=== PATIENT | female | born 1950 | race Caucasian/White ===

== ENCOUNTER 2018-06-16 15:59 | Emergency (ER) | payer MEDICARE, OTHER, SELFPAY ==
[2018-06-16 16:02] VITALS: BP 142/62; PULSE 81; RESP 20; TEMP 37.4; O2SAT 99
--- NOTE | 2018-06-16 16:06 | DI.RAD.S_ITS ---
PROCEDURE: XR HAND LT MIN 3V INDICATIONS: cellulitis TECHNIQUE: 3 views of the hand(s) acquired. COMPARISON: None. FINDINGS: Bones: No fractures or dislocations. Carpal bones are normally aligned. No suspicious bony lesions. No roger bony destruction or periosteal reaction. Soft tissues: No suspicious soft tissue calcifications. No soft tissue gas. IMPRESSION: No roger evidence of osteomyelitis. Plain film radiographs can be insensitive to osteomyelitis during the initial 15 days of the disease process. If there is clinical concern for osteomyelitis, then three-phase nuclear medicine bone scan is warranted. Dictated by: Michelle Bunch MD, PhD on 06/16/2018 at 15:23 Approved by: Michelle Bunch MD, PhD on 06/16/2018 at 15:24
--- NOTE | 2018-06-16 17:07 | ED.EXTPRO ---
HPI - Extremity Problem <Airam Mckeon PA-C - Last Filed: 06/16/18 22:02> General Chief complaint: Extremity Problem,Nontraumatic Stated complaint: LEFT HAND SWELLING Time Seen by Provider: 06/16/18 17:07 Source: patient Mode of arrival: ambulatory Limitations: no limitations History of Present Illness HPI Narrative: This 68-year-old female comes in today due to left hand pain, redness and swelling for the last 4 days. She states this is not worse today and has been about the same since 1st noted on Saturday, however she went to see her psychiatric provider who was concerned and sent her here. She states the hand and wrist are painful to touch and with movement. She states that she has not had fever at home. She does not know of any injury or insect bites. She has been going about her normal activities aside from trying to avoid using the hand. She denies any chest pain, dyspnea, or abdominal complaints. She denies any pain or swelling in other extremities. She denies any history of blood clots. Related Data Home Medications Medication Instructions Recorded Confirmed ascorbic acid (vitamin C) 1,000 mg PO QDAY #0 02/17/18 06/16/18 calcium carbonate 1,000 mg PO QDAY #0 02/17/18 06/16/18 cholecalciferol (vitamin D3) 1,000 iu PO QDAY #0 02/17/18 06/16/18 [Vitamin D3] ferrous sulfate [Iron (ferrous 325 mg PO QDAY #0 02/17/18 06/16/18 sulfate)] lisinopril 20 mg PO QDAY #0 02/17/18 06/16/18 sertraline 300 mg PO QDAY #0 02/17/18 06/16/18 vitamin E 1,000 iu PO QDAY #0 02/17/18 06/16/18 lamotrigine 25 mg PO QID 06/16/18 06/16/18 metoprolol succinate 50 mg PO QPM 06/16/18 06/16/18 Previous Rx's Medication Instructions Recorded gabapentin 300 mg capsule 900 mg PO SEE INSTRUCTIONS #90 cap 04/21/18 clindamycin HCl 300 mg PO Q6H 10 Days #40 cap 06/16/18 topiramate 25 mg tablet 50 mg PO BID #360 tab 06/16/18 Allergies Allergy/AdvReac Type Severity Reaction Status Date / Time No Known Allergies Allergy Uncoded 06/16/18 15:01 Review of Systems <Airam Mckeon PA-C - Last Filed: 06/16/18 22:02> Review of Systems All systems reviewed & are unremarkable except as noted in HPI and below Exam <Airam Mckeon PA-C - Last Filed: 06/16/18 22:02> Narrative Exam Narrative: GENERAL APPEARANCE: Patient sitting comfortably, in no distress. NECK/THYROID: Neck supple LUNGS: Clear to auscultation bilaterally. HEART: Regular rate and rhythm without murmur, normal S1, S2, no S3 or S4. ABDOMEN: Soft, NT, ND, + BS x 4 quadrants EXTREMITIES: No LE edema. No calf tenderness NEUROLOGIC: Alert and oriented, normal speech, and coordination. DERMATOLOGIC: Left hand and wrist as well as distal forearm moderately erythematous, warm to touch. No visible wound or puncture. MUSCULOSKELETAL: Left hand and wrist are tender throughout and edematous. No localized joint effusion or point tenderness. She has reduced ROM secondary to tenderness NEUROVASCULAR: Left hand fingers are warm and pink, radial and ulnar pulses intact, sensation grossly intact Initial Vital Signs Initial Vital Signs: Vital Signs Temperature 99.3 F 06/16/18 16:02 Pulse Rate 81 06/16/18 16:02 Respiratory Rate 20 06/16/18 16:02 Blood Pressure 142/62 H 06/16/18 16:02 Pulse Oximetry 99 06/16/18 16:02 <Pan Sharma MD - Last Filed: 06/17/18 02:04> Initial Vital Signs Initial Vital Signs: Vital Signs Temperature 99.3 F 06/16/18 16:02 Pulse Rate 81 06/16/18 16:02 Respiratory Rate 20 06/16/18 16:02 Blood Pressure 142/62 H 06/16/18 16:02 Pulse Oximetry 99 06/16/18 16:02 Course <Airam Mckeon PA-C - Last Filed: 06/16/18 22:02> Additional Information: Reviewed findings with Dr. Sharma including lack of WBC count, nl lactate, procal etc and lack of progression of symptoms in 4 days. He saw patient as well and agrees with plan for outpatient treatment. Patient is agreeable with plan as well as to return if any acutely worsening symptoms, and to follow up with her PCP in 48-72 hours Orders Ordered: ED Orders 06/16/18 18:00 Blood Culture Stat Discontinued Medications Sodium Chloride (Normal Saline 0.9%) 1,000 mls @ 1,000 mls/hr IV BOLUS ONE Stop: 06/16/18 18:18 Last Infusion: 06/16/18 18:49 Dose: 0 mls/hr Admin: 06/16/18 17:41 Dose: 1,000 mls/hr Clindamycin Phosphate (Cleocin) 600 mg in 50 mls @ 50 mls/hr IV NOW ONE Stop: 06/16/18 18:18 Last Infusion: 06/16/18 18:36 Dose: 0 mls/hr Admin: 06/16/18 17:41 Dose: 50 mls/hr Vital Signs - 8 hr 06/16/18 18:13 06/16/18 18:49 Temperature 98.6 F 98.6 F Pulse Rate 79 Respiratory Rate 16 Blood Pressure 141/70 H Pulse Oximetry 100 <Pan Sharma MD - Last Filed: 06/17/18 02:04> Orders Ordered: ED Orders 06/16/18 18:00 Blood Culture Stat Discontinued Medications Sodium Chloride (Normal Saline 0.9%) 1,000 mls @ 1,000 mls/hr IV BOLUS ONE Stop: 06/16/18 18:18 Last Infusion: 06/16/18 18:49 Dose: 0 mls/hr Admin: 06/16/18 17:41 Dose: 1,000 mls/hr Clindamycin Phosphate (Cleocin) 600 mg in 50 mls @ 50 mls/hr IV NOW ONE Stop: 06/16/18 18:18 Last Infusion: 06/16/18 18:36 Dose: 0 mls/hr Admin: 06/16/18 17:41 Dose: 50 mls/hr Vital Signs - 8 hr 06/16/18 18:13 06/16/18 18:49 Temperature 98.6 F 98.6 F Pulse Rate 79 Respiratory Rate 16 Blood Pressure 141/70 H Pulse Oximetry 100 MDM - Extremity (Nontraumatic) <Airam Mckeon PA-C - Last Filed: 06/16/18 22:02> Lab Data Result diagrams: 06/16/18 16:39 08/06/18 16:40 Lab Results 06/16/18 06/16/18 06/16/18 Range/Units 16:39 16:39 16:40 WBC 10.2 (4.5-11.0) X10^3/uL RBC 3.95 L (4.0-5.2) X10^6/uL Hgb 9.0 L (12.0-16.0) g/dL Hct 28.4 L (36-46) % MCV 71.9 L (80-100) fL MCH 22.7 L (26-34) PG MCHC 31.5 (30-36) % RDW 19.7 H (11.6-14.8) % Plt Count 241 (150-400) X10^3/uL Neut % (Auto) 72.5 (50-75) % Lymph % (Auto) 17.1 L (25-40) % [place] % (Auto) 8.7 (3-14) % Eos % (Auto) 1.0 L (2-4) % Baso % (Auto) 0.7 (0-2) % Neut # (Auto) 7400 H (3176-0476) /uL PT 12.8 H (10.1-12.7) SECONDS INR 1.2 (0.9-1.3) APTT 27 (26.4-36.2) SECONDS Sodium (137-145) mmol/L Potassium (3.4-5.1) mmol/L Chloride (98-107) mmol/L Carbon Dioxide (22-32) mmol/L BUN (7-17) mg/dL Creatinine (0.52-1.04) mg/dL Estimated GFR (>60) mL/min BUN/Creatinine Ratio (6-22) Glucose (80-110) mg/dL Lactate (0.7-2.1) mmol/L Uric Acid 5.1 (2.5-6.2) mg/dL Calcium (8.4-10.2) mg/dL Total Bilirubin (0.2-1.3) mg/dL AST (14-36) IU/L ALT (9-52) IU/L Alkaline Phosphatase (38-126) U/L Total Protein (6.3-8.2) g/dL Albumin (3.5-5.0) g/dL Globulin (1.7-4.1) g/dL Albumin/Globulin Ratio (1.0-2.8) Lipase (23-300) U/L Procalcitonin (<0.5) ng/mL 06/16/18 06/16/18 06/16/18 Range/Units 16:40 16:40 16:40 WBC (4.5-11.0) X10^3/uL RBC (4.0-5.2) X10^6/uL Hgb (12.0-16.0) g/dL Hct (36-46) % MCV (80-100) fL MCH (26-34) PG MCHC (30-36) % RDW (11.6-14.8) % Plt Count (150-400) X10^3/uL Neut % (Auto) (50-75) % Lymph % (Auto) (25-40) % [place] % (Auto) (3-14) % Eos % (Auto) (2-4) % Baso % (Auto) (0-2) % Neut # (Auto) (9886-6147) /uL PT (10.1-12.7) SECONDS INR (0.9-1.3) APTT (26.4-36.2) SECONDS Sodium 142 (137-145) mmol/L Potassium 3.4 (3.4-5.1) mmol/L Chloride 111 H (98-107) mmol/L Carbon Dioxide 19 L (22-32) mmol/L BUN 20 H (7-17) mg/dL Creatinine 1.20 H (0.52-1.04) mg/dL Estimated GFR 44.8 L (>60) mL/min BUN/Creatinine Ratio 16.7 (6-22) Glucose 98 (80-110) mg/dL Lactate 0.9 (0.7-2.1) mmol/L Uric Acid (2.5-6.2) mg/dL Calcium 9.2 (8.4-10.2) mg/dL Total Bilirubin 0.3 (0.2-1.3) mg/dL AST 18 (14-36) IU/L ALT 14 (9-52) IU/L Alkaline Phosphatase 92 (38-126) U/L Total Protein 7.5 (6.3-8.2) g/dL Albumin 4.1 (3.5-5.0) g/dL Globulin 3.4 (1.7-4.1) g/dL Albumin/Globulin Ratio 1.2 (1.0-2.8) Lipase 35 (23-300) U/L Procalcitonin < 0.05 (<0.5) ng/mL Imaging Data extremity: Radiologist's impression: [address] [address] XRay Report Signed Patient: Darline Bray MR#: [id number] : 1950 Acct:[id number] Age/Sex: 68 / F Date of Service: 06/16/18 Loc: ED Accession Number: [id number] Procedure: XR hand LT min 3V Ordering Provider: Airam Mckeon P.A-C PROCEDURE: XR HAND LT MIN 3V INDICATIONS: cellulitis TECHNIQUE: 3 views of the hand(s) acquired. COMPARISON: None. FINDINGS: Bones: No fractures or dislocations. Carpal bones are normally aligned. No suspicious bony lesions. No roger bony destruction or periosteal reaction. Soft tissues: No suspicious soft tissue calcifications. No soft tissue gas. IMPRESSION: No roger evidence of osteomyelitis. Plain film radiographs can be insensitive to osteomyelitis during the initial 15 days of the disease process. If there is clinical concern for osteomyelitis, then three-phase nuclear medicine bone scan is warranted. Dictated by: Michelle Bunch MD, PhD on 06/16/2018 at 15:23 Approved by: Michelle Bunch MD, PhD on 06/16/2018 at 15:24 <Pan Sharma MD - Last Filed: 06/17/18 02:04> Lab Data Lab Results 06/16/18 06/16/18 06/16/18 Range/Units 16:39 16:39 16:40 WBC 10.2 (4.5-11.0) X10^3/uL RBC 3.95 L (4.0-5.2) X10^6/uL Hgb 9.0 L (12.0-16.0) g/dL Hct 28.4 L (36-46) % MCV 71.9 L (80-100) fL MCH 22.7 L (26-34) PG MCHC 31.5 (30-36) % RDW 19.7 H (11.6-14.8) % Plt Count 241 (150-400) X10^3/uL Neut % (Auto) 72.5 (50-75) % Lymph % (Auto) 17.1 L (25-40) % [place] % (Auto) 8.7 (3-14) % Eos % (Auto) 1.0 L (2-4) % Baso % (Auto) 0.7 (0-2) % Neut # (Auto) 7400 H (8634-2265) /uL PT 12.8 H (10.1-12.7) SECONDS INR 1.2 (0.9-1.3) APTT 27 (26.4-36.2) SECONDS Sodium (137-145) mmol/L Potassium (3.4-5.1) mmol/L Chloride (98-107) mmol/L Carbon Dioxide (22-32) mmol/L BUN (7-17) mg/dL Creatinine (0.52-1.04) mg/dL Estimated GFR (>60) mL/min BUN/Creatinine Ratio (6-22) Glucose (80-110) mg/dL Lactate (0.7-2.1) mmol/L Uric Acid 5.1 (2.5-6.2) mg/dL Calcium (8.4-10.2) mg/dL Total Bilirubin (0.2-1.3) mg/dL AST (14-36) IU/L ALT (9-52) IU/L Alkaline Phosphatase (38-126) U/L Total Protein (6.3-8.2) g/dL Albumin (3.5-5.0) g/dL Globulin (1.7-4.1) g/dL Albumin/Globulin Ratio (1.0-2.8) Lipase (23-300) U/L Procalcitonin (<0.5) ng/mL 06/16/18 06/16/18 06/16/18 Range/Units 16:40 16:40 16:40 WBC (4.5-11.0) X10^3/uL RBC (4.0-5.2) X10^6/uL Hgb (12.0-16.0) g/dL Hct (36-46) % MCV (80-100) fL MCH (26-34) PG MCHC (30-36) % RDW (11.6-14.8) % Plt Count (150-400) X10^3/uL Neut % (Auto) (50-75) % Lymph % (Auto) (25-40) % [place] % (Auto) (3-14) % Eos % (Auto) (2-4) % Baso % (Auto) (0-2) % Neut # (Auto) (7586-2713) /uL PT (10.1-12.7) SECONDS INR (0.9-1.3) APTT (26.4-36.2) SECONDS Sodium 142 (137-145) mmol/L Potassium 3.4 (3.4-5.1) mmol/L Chloride 111 H (98-107) mmol/L Carbon Dioxide 19 L (22-32) mmol/L BUN 20 H (7-17) mg/dL Creatinine 1.20 H (0.52-1.04) mg/dL Estimated GFR 44.8 L (>60) mL/min BUN/Creatinine Ratio 16.7 (6-22) Glucose 98 (80-110) mg/dL Lactate 0.9 (0.7-2.1) mmol/L Uric Acid (2.5-6.2) mg/dL Calcium 9.2 (8.4-10.2) mg/dL Total Bilirubin 0.3 (0.2-1.3) mg/dL AST 18 (14-36) IU/L ALT 14 (9-52) IU/L Alkaline Phosphatase 92 (38-126) U/L Total Protein 7.5 (6.3-8.2) g/dL Albumin 4.1 (3.5-5.0) g/dL Globulin 3.4 (1.7-4.1) g/dL Albumin/Globulin Ratio 1.2 (1.0-2.8) Lipase 35 (23-300) U/L Procalcitonin < 0.05 (<0.5) ng/mL Discharge Plan Departure Patient Disposition: Home, Self-Care Clinical Impression: Cellulitis Discharge Date/Time: 06/16/18 18:50 Interventions: ED Discharge Assessment Last Done: 06/16/18 18:49 Instructions: DI for Cellulitis -- Adult Activity Restrictions/Additional Instructions: Please return as we talked about if you have any acutely worsening symptoms, such as more redness, pain or swelling, or new symptoms such as fever. Otherwise please warp picker the antibiotic when you leave here and take the next dose before bed tonight. This is the same antibiotic that you had in the IV here. Please add Aleve (naproxen) 1 tablet twice daily to help with pain and inflammation. You can increase to 2 tablets twice daily as needed. Please be sure to follow up with your PCP in 48-72 hours to assess your progress on the antibiotic Prescriptions: New clindamycin HCl 300 mg capsule 300 mg PO Q6H 10 Days Qty: 40 RF: 0 No Action gabapentin [Neurontin] 300 mg capsule 900 mg PO SEE INSTRUCTIONS Qty: 90 RF: 2 topiramate [Topamax] 25 mg tablet 50 mg PO BID Qty: 360 RF: 0 lisinopril 20 MG tablet 20 mg PO QDAY Qty: 0 RF: 0 sertraline 100 MG tablet 300 mg PO QDAY Qty: 0 RF: 0 cholecalciferol (vitamin D3) [Vitamin D3] 1,000 UNIT tablet 1,000 iu PO QDAY Qty: 0 RF: 0 vitamin E 1,000 UNIT capsule 1,000 iu PO QDAY Qty: 0 RF: 0 ascorbic acid (vitamin C) 500 MG tablet 1,000 mg PO QDAY Qty: 0 RF: 0 calcium carbonate 500 MG tablet 1,000 mg PO QDAY Qty: 0 RF: 0 ferrous sulfate [Iron (ferrous sulfate)] 325 MG tablet 325 mg PO QDAY Qty: 0 RF: 0 metoprolol succinate 50 mg tablet extended release 24 hr 50 mg PO QPM RF: 0 lamotrigine 25 mg tablet 25 mg PO QID RF: 0 Referrals: Aamir Ndiaye MD [Primary Care Provider] - <Pan Sharma MD - Last Filed: 06/17/18 02:04> Cosign ED Attending Cosdavidature Attestation: I was available in the ER for verbal consultation and to physically see the patient if need be. I agree with the evaluation and treatment plan.
[2018-06-16 17:11] VITALS: BP 122/47; PULSE 76; RESP 17; O2SAT 96
--- NOTE | 2018-06-16 17:12 | ED_ITS ---
HPI - Extremity Problem <Airam Mckeon PA-C - Last Filed: 06/16/18 22:02> General Chief complaint: Extremity Problem,Nontraumatic Stated complaint: LEFT HAND SWELLING Time Seen by Provider: 06/16/18 17:07 Source: patient Mode of arrival: ambulatory Limitations: no limitations History of Present Illness HPI Narrative: This 68-year-old female comes in today due to left hand pain, redness and swelling for the last 4 days. She states this is not worse today and has been about the same since 1st noted on Saturday, however she went to see her psychiatric provider who was concerned and sent her here. She states the hand and wrist are painful to touch and with movement. She states that she has not had fever at home. She does not know of any injury or insect bites. She has been going about her normal activities aside from trying to avoid using the hand. She denies any chest pain, dyspnea, or abdominal complaints. She denies any pain or swelling in other extremities. She denies any history of blood clots. Related Data Home Medications Medication Instructions Recorded Confirmed ascorbic acid (vitamin C) 1,000 mg PO QDAY #0 02/17/18 06/16/18 calcium carbonate 1,000 mg PO QDAY #0 02/17/18 06/16/18 cholecalciferol (vitamin D3) 1,000 iu PO QDAY #0 02/17/18 06/16/18 [Vitamin D3] ferrous sulfate [Iron (ferrous 325 mg PO QDAY #0 02/17/18 06/16/18 sulfate)] lisinopril 20 mg PO QDAY #0 02/17/18 06/16/18 sertraline 300 mg PO QDAY #0 02/17/18 06/16/18 vitamin E 1,000 iu PO QDAY #0 02/17/18 06/16/18 lamotrigine 25 mg PO QID 06/16/18 06/16/18 metoprolol succinate 50 mg PO QPM 06/16/18 06/16/18 Previous Rx's Medication Instructions Recorded gabapentin 300 mg capsule 900 mg PO SEE INSTRUCTIONS #90 cap 04/21/18 clindamycin HCl 300 mg PO Q6H 10 Days #40 cap 06/16/18 topiramate 25 mg tablet 50 mg PO BID #360 tab 06/16/18 Allergies Allergy/AdvReac Type Severity Reaction Status Date / Time No Known Allergies Allergy Uncoded 06/16/18 15:01 Review of Systems <Airam Mckeon PA-C - Last Filed: 06/16/18 22:02> Review of Systems All systems reviewed & are unremarkable except as noted in HPI and below Exam <Airam Mckeon PA-C - Last Filed: 06/16/18 22:02> Narrative Exam Narrative: GENERAL APPEARANCE: Patient sitting comfortably, in no distress. NECK/THYROID: Neck supple LUNGS: Clear to auscultation bilaterally. HEART: Regular rate and rhythm without murmur, normal S1, S2, no S3 or S4. ABDOMEN: Soft, NT, ND, + BS x 4 quadrants EXTREMITIES: No LE edema. No calf tenderness NEUROLOGIC: Alert and oriented, normal speech, and coordination. DERMATOLOGIC: Left hand and wrist as well as distal forearm moderately erythematous, warm to touch. No visible wound or puncture. MUSCULOSKELETAL: Left hand and wrist are tender throughout and edematous. No localized joint effusion or point tenderness. She has reduced ROM secondary to tenderness NEUROVASCULAR: Left hand fingers are warm and pink, radial and ulnar pulses intact, sensation grossly intact Initial Vital Signs Initial Vital Signs: Vital Signs Temperature 99.3 F 06/16/18 16:02 Pulse Rate 81 06/16/18 16:02 Respiratory Rate 20 06/16/18 16:02 Blood Pressure 142/62 H 06/16/18 16:02 Pulse Oximetry 99 06/16/18 16:02 <Pan Sharma MD - Last Filed: 06/17/18 02:04> Initial Vital Signs Initial Vital Signs: Vital Signs Temperature 99.3 F 06/16/18 16:02 Pulse Rate 81 06/16/18 16:02 Respiratory Rate 20 06/16/18 16:02 Blood Pressure 142/62 H 06/16/18 16:02 Pulse Oximetry 99 06/16/18 16:02 Course <Airam Mckeon PA-C - Last Filed: 06/16/18 22:02> Additional Information: Reviewed findings with Dr. Sharma including lack of WBC count, nl lactate, procal etc and lack of progression of symptoms in 4 days. He saw patient as well and agrees with plan for outpatient treatment. Patient is agreeable with plan as well as to return if any acutely worsening symptoms, and to follow up with her PCP in 48-72 hours Orders Ordered: ED Orders 06/16/18 18:00 Blood Culture Stat Discontinued Medications Sodium Chloride (Normal Saline 0.9%) 1,000 mls @ 1,000 mls/hr IV BOLUS ONE Stop: 06/16/18 18:18 Last Infusion: 06/16/18 18:49 Dose: 0 mls/hr Admin: 06/16/18 17:41 Dose: 1,000 mls/hr Clindamycin Phosphate (Cleocin) 600 mg in 50 mls @ 50 mls/hr IV NOW ONE Stop: 06/16/18 18:18 Last Infusion: 06/16/18 18:36 Dose: 0 mls/hr Admin: 06/16/18 17:41 Dose: 50 mls/hr Vital Signs - 8 hr 06/16/18 18:13 06/16/18 18:49 Temperature 98.6 F 98.6 F Pulse Rate 79 Respiratory Rate 16 Blood Pressure 141/70 H Pulse Oximetry 100 <Pan Sharma MD - Last Filed: 06/17/18 02:04> Orders Ordered: ED Orders 06/16/18 18:00 Blood Culture Stat Discontinued Medications Sodium Chloride (Normal Saline 0.9%) 1,000 mls @ 1,000 mls/hr IV BOLUS ONE Stop: 06/16/18 18:18 Last Infusion: 06/16/18 18:49 Dose: 0 mls/hr Admin: 06/16/18 17:41 Dose: 1,000 mls/hr Clindamycin Phosphate (Cleocin) 600 mg in 50 mls @ 50 mls/hr IV NOW ONE Stop: 06/16/18 18:18 Last Infusion: 06/16/18 18:36 Dose: 0 mls/hr Admin: 06/16/18 17:41 Dose: 50 mls/hr Vital Signs - 8 hr 06/16/18 18:13 06/16/18 18:49 Temperature 98.6 F 98.6 F Pulse Rate 79 Respiratory Rate 16 Blood Pressure 141/70 H Pulse Oximetry 100 MDM - Extremity (Nontraumatic) <Airam Mckeon PA-C - Last Filed: 06/16/18 22:02> Lab Data Result diagrams: 06/16/18 16:39 08/06/18 16:40 Lab Results 06/16/18 06/16/18 06/16/18 Range/Units 16:39 16:39 16:40 WBC 10.2 (4.5-11.0) X10^3/uL RBC 3.95 L (4.0-5.2) X10^6/uL Hgb 9.0 L (12.0-16.0) g/dL Hct 28.4 L (36-46) % MCV 71.9 L (80-100) fL MCH 22.7 L (26-34) PG MCHC 31.5 (30-36) % RDW 19.7 H (11.6-14.8) % Plt Count 241 (150-400) X10^3/uL Neut % (Auto) 72.5 (50-75) % Lymph % (Auto) 17.1 L (25-40) % [place] % (Auto) 8.7 (3-14) % Eos % (Auto) 1.0 L (2-4) % Baso % (Auto) 0.7 (0-2) % Neut # (Auto) 7400 H (5275-9638) /uL PT 12.8 H (10.1-12.7) SECONDS INR 1.2 (0.9-1.3) APTT 27 (26.4-36.2) SECONDS Sodium (137-145) mmol/L Potassium (3.4-5.1) mmol/L Chloride (98-107) mmol/L Carbon Dioxide (22-32) mmol/L BUN (7-17) mg/dL Creatinine (0.52-1.04) mg/dL Estimated GFR (>60) mL/min BUN/Creatinine Ratio (6-22) Glucose (80-110) mg/dL Lactate (0.7-2.1) mmol/L Uric Acid 5.1 (2.5-6.2) mg/dL Calcium (8.4-10.2) mg/dL Total Bilirubin (0.2-1.3) mg/dL AST (14-36) IU/L ALT (9-52) IU/L Alkaline Phosphatase (38-126) U/L Total Protein (6.3-8.2) g/dL Albumin (3.5-5.0) g/dL Globulin (1.7-4.1) g/dL Albumin/Globulin Ratio (1.0-2.8) Lipase (23-300) U/L Procalcitonin (<0.5) ng/mL 06/16/18 06/16/18 06/16/18 Range/Units 16:40 16:40 16:40 WBC (4.5-11.0) X10^3/uL RBC (4.0-5.2) X10^6/uL Hgb (12.0-16.0) g/dL Hct (36-46) % MCV (80-100) fL MCH (26-34) PG MCHC (30-36) % RDW (11.6-14.8) % Plt Count (150-400) X10^3/uL Neut % (Auto) (50-75) % Lymph % (Auto) (25-40) % [place] % (Auto) (3-14) % Eos % (Auto) (2-4) % Baso % (Auto) (0-2) % Neut # (Auto) (7373-8652) /uL PT (10.1-12.7) SECONDS INR (0.9-1.3) APTT (26.4-36.2) SECONDS Sodium 142 (137-145) mmol/L Potassium 3.4 (3.4-5.1) mmol/L Chloride 111 H (98-107) mmol/L Carbon Dioxide 19 L (22-32) mmol/L BUN 20 H (7-17) mg/dL Creatinine 1.20 H (0.52-1.04) mg/dL Estimated GFR 44.8 L (>60) mL/min BUN/Creatinine Ratio 16.7 (6-22) Glucose 98 (80-110) mg/dL Lactate 0.9 (0.7-2.1) mmol/L Uric Acid (2.5-6.2) mg/dL Calcium 9.2 (8.4-10.2) mg/dL Total Bilirubin 0.3 (0.2-1.3) mg/dL AST 18 (14-36) IU/L ALT 14 (9-52) IU/L Alkaline Phosphatase 92 (38-126) U/L Total Protein 7.5 (6.3-8.2) g/dL Albumin 4.1 (3.5-5.0) g/dL Globulin 3.4 (1.7-4.1) g/dL Albumin/Globulin Ratio 1.2 (1.0-2.8) Lipase 35 (23-300) U/L Procalcitonin < 0.05 (<0.5) ng/mL Imaging Data extremity: Radiologist's impression: [address] [address] XRay Report Signed Patient: Darline Bray MR#: [id number] : 1950 Acct:[id number] Age/Sex: 68 / F Date of Service: 06/16/18 Loc: ED Accession Number: [id number] Procedure: XR hand LT min 3V Ordering Provider: Airam Mckeon P.A-C PROCEDURE: XR HAND LT MIN 3V INDICATIONS: cellulitis TECHNIQUE: 3 views of the hand(s) acquired. COMPARISON: None. FINDINGS: Bones: No fractures or dislocations. Carpal bones are normally aligned. No suspicious bony lesions. No roger bony destruction or periosteal reaction. Soft tissues: No suspicious soft tissue calcifications. No soft tissue gas. IMPRESSION: No roger evidence of osteomyelitis. Plain film radiographs can be insensitive to osteomyelitis during the initial 15 days of the disease process. If there is clinical concern for osteomyelitis, then three-phase nuclear medicine bone scan is warranted. Dictated by: Michelle Bunch MD, PhD on 06/16/2018 at 15:23 Approved by: Michelle Bunch MD, PhD on 06/16/2018 at 15:24 <Pan Sharma MD - Last Filed: 06/17/18 02:04> Lab Data Lab Results 06/16/18 06/16/18 06/16/18 Range/Units 16:39 16:39 16:40 WBC 10.2 (4.5-11.0) X10^3/uL RBC 3.95 L (4.0-5.2) X10^6/uL Hgb 9.0 L (12.0-16.0) g/dL Hct 28.4 L (36-46) % MCV 71.9 L (80-100) fL MCH 22.7 L (26-34) PG MCHC 31.5 (30-36) % RDW 19.7 H (11.6-14.8) % Plt Count 241 (150-400) X10^3/uL Neut % (Auto) 72.5 (50-75) % Lymph % (Auto) 17.1 L (25-40) % [place] % (Auto) 8.7 (3-14) % Eos % (Auto) 1.0 L (2-4) % Baso % (Auto) 0.7 (0-2) % Neut # (Auto) 7400 H (9859-1022) /uL PT 12.8 H (10.1-12.7) SECONDS INR 1.2 (0.9-1.3) APTT 27 (26.4-36.2) SECONDS Sodium (137-145) mmol/L Potassium (3.4-5.1) mmol/L Chloride (98-107) mmol/L Carbon Dioxide (22-32) mmol/L BUN (7-17) mg/dL Creatinine (0.52-1.04) mg/dL Estimated GFR (>60) mL/min BUN/Creatinine Ratio (6-22) Glucose (80-110) mg/dL Lactate (0.7-2.1) mmol/L Uric Acid 5.1 (2.5-6.2) mg/dL Calcium (8.4-10.2) mg/dL Total Bilirubin (0.2-1.3) mg/dL AST (14-36) IU/L ALT (9-52) IU/L Alkaline Phosphatase (38-126) U/L Total Protein (6.3-8.2) g/dL Albumin (3.5-5.0) g/dL Globulin (1.7-4.1) g/dL Albumin/Globulin Ratio (1.0-2.8) Lipase (23-300) U/L Procalcitonin (<0.5) ng/mL 06/16/18 06/16/18 06/16/18 Range/Units 16:40 16:40 16:40 WBC (4.5-11.0) X10^3/uL RBC (4.0-5.2) X10^6/uL Hgb (12.0-16.0) g/dL Hct (36-46) % MCV (80-100) fL MCH (26-34) PG MCHC (30-36) % RDW (11.6-14.8) % Plt Count (150-400) X10^3/uL Neut % (Auto) (50-75) % Lymph % (Auto) (25-40) % [place] % (Auto) (3-14) % Eos % (Auto) (2-4) % Baso % (Auto) (0-2) % Neut # (Auto) (6692-2659) /uL PT (10.1-12.7) SECONDS INR (0.9-1.3) APTT (26.4-36.2) SECONDS Sodium 142 (137-145) mmol/L Potassium 3.4 (3.4-5.1) mmol/L Chloride 111 H (98-107) mmol/L Carbon Dioxide 19 L (22-32) mmol/L BUN 20 H (7-17) mg/dL Creatinine 1.20 H (0.52-1.04) mg/dL Estimated GFR 44.8 L (>60) mL/min BUN/Creatinine Ratio 16.7 (6-22) Glucose 98 (80-110) mg/dL Lactate 0.9 (0.7-2.1) mmol/L Uric Acid (2.5-6.2) mg/dL Calcium 9.2 (8.4-10.2) mg/dL Total Bilirubin 0.3 (0.2-1.3) mg/dL AST 18 (14-36) IU/L ALT 14 (9-52) IU/L Alkaline Phosphatase 92 (38-126) U/L Total Protein 7.5 (6.3-8.2) g/dL Albumin 4.1 (3.5-5.0) g/dL Globulin 3.4 (1.7-4.1) g/dL Albumin/Globulin Ratio 1.2 (1.0-2.8) Lipase 35 (23-300) U/L Procalcitonin < 0.05 (<0.5) ng/mL Discharge Plan Departure Patient Disposition: Home, Self-Care Clinical Impression: Cellulitis Discharge Date/Time: 06/16/18 18:50 Interventions: ED Discharge Assessment Last Done: 06/16/18 18:49 Instructions: DI for Cellulitis -- Adult Activity Restrictions/Additional Instructions: Please return as we talked about if you have any acutely worsening symptoms, such as more redness, pain or swelling, or new symptoms such as fever. Otherwise please medicinal plant picker the antibiotic when you leave here and take the next dose before bed tonight. This is the same antibiotic that you had in the IV here. Please add Aleve (naproxen) 1 tablet twice daily to help with pain and inflammation. You can increase to 2 tablets twice daily as needed. Please be sure to follow up with your PCP in 48-72 hours to assess your progress on the antibiotic Prescriptions: New clindamycin HCl 300 mg capsule 300 mg PO Q6H 10 Days Qty: 40 RF: 0 No Action gabapentin [Neurontin] 300 mg capsule 900 mg PO SEE INSTRUCTIONS Qty: 90 RF: 2 topiramate [Topamax] 25 mg tablet 50 mg PO BID Qty: 360 RF: 0 lisinopril 20 MG tablet 20 mg PO QDAY Qty: 0 RF: 0 sertraline 100 MG tablet 300 mg PO QDAY Qty: 0 RF: 0 cholecalciferol (vitamin D3) [Vitamin D3] 1,000 UNIT tablet 1,000 iu PO QDAY Qty: 0 RF: 0 vitamin E 1,000 UNIT capsule 1,000 iu PO QDAY Qty: 0 RF: 0 ascorbic acid (vitamin C) 500 MG tablet 1,000 mg PO QDAY Qty: 0 RF: 0 calcium carbonate 500 MG tablet 1,000 mg PO QDAY Qty: 0 RF: 0 ferrous sulfate [Iron (ferrous sulfate)] 325 MG tablet 325 mg PO QDAY Qty: 0 RF: 0 metoprolol succinate 50 mg tablet extended release 24 hr 50 mg PO QPM RF: 0 lamotrigine 25 mg tablet 25 mg PO QID RF: 0 Referrals: Aamir Ndiaye MD [Primary Care Provider] - <Pan Sharma MD - Last Filed: 06/17/18 02:04> Cosign ED Attending Cosdavidature Attestation: I was available in the ER for verbal consultation and to physically see the patient if need be. I agree with the evaluation and treatment plan.
[2018-06-16 17:35] LABS: INR 1.2 (0.9-1.3); Prothrombin Time 12.8 SECONDS (10.1-12.7)
[2018-06-16 17:38] LABS: PTT Partial Thromboplastin Tim 27 SECONDS (26.4-36.2)
[2018-06-16 17:41] LABS: Lactate (Lactic Acid) 0.9 mmol/L (0.7-2.1)
[2018-06-16 17:41] LABS: Add Manual Diff / Slide Review NO; Basophils Percent Auto 0.7 % (0-2); Hematocrit 28.4 % (36-46); Lymphocytes Percent Auto 17.1 % (25-40); Mean Corpuscular HGB Conc 31.5 % (30-36); Mean Corpuscular Hemoglobin 22.7 PG (26-34); Mean Corpuscular Volume 71.9 fL (80-100); Monocytes Percent Auto 8.7 % (3-14); Neutrophils Absolute Auto 7400 /uL (3000-5900); Neutrophils Percent Auto 72.5 % (50-75); Platelet Count 241 X10^3/uL (150-400); Red Blood Cell Count 3.95 X10^6/uL (4.0-5.2); Red Cell Distribution Width 19.7 % (11.6-14.8); Uric Acid 5.1 mg/dL (2.5-6.2); White Blood Cell Count 10.2 X10^3/uL (4.5-11.0)
[2018-06-16] MEDS: CLINDAMYCIN 600 MG/50 ML PIGGYBACK 50 MG IV (17:41)
[2018-06-16] MEDS: SODIUM CHLORIDE 0.9% 1,000 ML 1000 ML IV (17:41)
[2018-06-16 17:44] LABS: Alanine Aminotransferase 14 IU/L (9-52); Albumin 4.1 g/dL (3.5-5.0); Albumin Globulin Ratio 1.2 (1.0-2.8); Alkaline Phosphatase 92 U/L (38-126); Aspartate Aminotransferase 18 IU/L (14-36); BUN Creatinine Ratio 16.7 (6-22); Bilirubin Total 0.3 mg/dL (0.2-1.3); Blood Urea Nitrogen 20 mg/dL (7-17); Calcium 9.2 mg/dL (8.4-10.2); Carbon Dioxide 19 mmol/L (22-32); Chloride 111 mmol/L (98-107); Estimated Glomerular Filt Rate 44.8 mL/min (>60); Globulin 3.4 g/dL (1.7-4.1); Glucose 98 mg/dL (80-110); HEMOLYSIS < 15 (0-50); Lipase 35 U/L (23-300); Potassium 3.4 mmol/L (3.4-5.1); Sodium 142 mmol/L (137-145); Total Protein 7.5 g/dL (6.3-8.2)
[2018-06-16 18:04] LABS: Procalcitonin < 0.05 ng/mL (<0.5)
[2018-06-16 18:13] VITALS: TEMP 37
[2018-06-16 18:49] VITALS: BP 141/70; PULSE 79; RESP 16; TEMP 37; O2SAT 100
== END 2018-06-16 18:50 | disposition home or self-care (01) ==
PROVIDERS: Emergency Provider Internal Medicine; Family Provider Family Medicine; PCP Family Medicine
DX: L03.114 Cellulitis of left upper limb (principal)
CPT/HCPCS: 36591; 73130; 80053; 83605; 83690; 84145; 84550; 85025; 85610; 85730; 87040; 90836; 96365; 99214; 99283; 99284

== ENCOUNTER → 2018-07-03 15:34 | Outpatient (CLI) | payer MEDICARE, OTHER, SELFPAY ==
[2018-07-03 16:42] LABS: HEMOLYSIS < 15 (0-50); Iron 13 ug/dL (37-170)
--- NOTE | 2018-07-03 16:44 | PC.NURSE ---
Labs pending for provider visit on 08/28
[2018-07-03 16:53] LABS: Percent Iron Saturation 3 % (15-50); Total Iron Binding Capacity 444 ug/dL (265-497); Transferrin 367 mg/dL (206-381)
[2018-07-03 17:18] LABS: Ferritin 7.3 ng/mL (11.1-264)
[2018-07-03 17:49] LABS: Folate 2.9 ng/mL (2.76-20.0); Vitamin B12 326 pg/mL (239-931)
== END ==
PROVIDERS: Family Provider Family Medicine; PCP Family Medicine; Visit Provider Internal Medicine Hematology & Oncology
DX: D50.9 Iron deficiency anemia, unspecified (principal)
CPT/HCPCS: 36415; 82607; 82728; 82746; 83540; 83550

== ENCOUNTER 2018-07-15 10:50 | Day surgery (SDC) | payer MEDICARE, OTHER, SELFPAY ==
--- NOTE | 2018-07-15 | PATH_ITS ---
[facility] Accession Number: [id number] . 01 Material submitted: . ASCENDING COLON POLYP . 02 Diagnosis: Ascending Colon, Polyp, Biopsy: Superficial portion of colorectal mucosa with a lymphoid aggregate and otherwise no diagnostic abnormality. Additional levels through the block are noncontributory. MRV/07/17/2018 . 02 Electronically signed: . Jennifer Roblero MD, Pathologist NPI- [id number] . 01 Gross description: . ASCENDING COLON POLYP: Received in formalin are 2 fragment(s) of sharpe, soft tissue measuring 0.4 x 0.4 x 0.3 cm to 0.3 x 0.3 x 0.2 cm submitted entirely in 1 cassette(s) /CKI /CKI . 02 Pathologist provided ICD-10: K63.5 . 02 CPT . 611813 Performed at: 01 [facility] [address], [place], [place] [id number] MD Manuel Fang MD Phone: [phone] Performed at: [address] [facility] [address] [place], [place] [id number] MD Mihir Rajput MD Phone: [phone]
[2018-07-15 11:38] VITALS: BP 137/79; PULSE 67; RESP 16; TEMP 37.1; O2SAT 96; BMI 26.9
[2018-07-15] MEDS: SODIUM CHLORIDE 0.9% 1,000 ML 200 ML IV (11:45)
--- NOTE | 2018-07-15 12:58 | PM.HP.1 ---
History of Present Illness Date Patient Seen: 07/15/18 Time Patient Seen: 12:58 Chief complaint: [id number] EGD/COLONOSCOPY Narrative: Patient is a woman who is here for an evaluation for anemia. She has had no external blood loss she is aware of. Denies any abdominal pain. Patient History Medical History Depression (Chronic) HTN (hypertension) (Chronic) Migraines (Chronic) PTSD (post-traumatic stress disorder) (Chronic) Surgical History H/O foot surgery (Resolved) History of bilateral breast reduction surgery (Resolved) History of partial hysterectomy (Resolved) Family & Social History Family History: Reviewed 07/15/18 by Sree Mathew MD Tobacco & Substance use: Smoking Status Never smoker alcohol intake never Meds Home Medications Medication Instructions Recorded Confirmed Type ascorbic acid (vitamin C) 1,000 mg PO BID #0 02/17/18 06/30/18 History calcium carbonate 1,000 mg PO QDAY #0 02/17/18 06/30/18 History cholecalciferol (vitamin D3) 5,000 iu PO QDAY #0 02/17/18 06/30/18 History [Vitamin D3] ferrous sulfate [Iron (ferrous 325 mg PO QDAY #0 02/17/18 06/30/18 History sulfate)] lisinopril 20 mg PO QDAY #0 02/17/18 06/30/18 History sertraline 200 mg PO QDAY #0 02/17/18 06/30/18 History vitamin E 1,000 iu PO QDAY #0 02/17/18 06/16/18 History metoprolol succinate 50 mg PO QPM 06/16/18 06/30/18 History topiramate 25 mg tablet 50 mg PO BID #360 tab 06/16/18 06/16/18 Rx erenumab-aooe 70 mg/mL 140 mg SUBCUT QMONTH #2 ml 06/17/18 06/30/18 Rx subcutaneous auto-injector mirtazapine 15 mg PO DAILY 06/30/18 06/30/18 History trazodone 100 mg tablet 100 mg PO DAILY #90 tab 07/03/18 Rx Allergies Allergy/AdvReac Type Severity Reaction Status Date / Time No Known Drug Allergies Allergy Verified 06/30/18 16:03 Review of Systems Review of Systems Does suffer from hypertension. Has anxiety and depression under treatment. He occasionally has migraines. Does have urinary incontinence. All systems reviewed & are unremarkable except as noted in HPI and below Exam Vital Signs (past 8 hours): - 07/15/18 11:38 Temperature 98.8 F Pulse Rate 67 Respiratory Rate 16 Blood Pressure 137/79 Pulse Oximetry 96 Oxygen Delivery Method Room Air Narrative Exam Narrative: Operative no apparent distress. Lungs are clear no rales or rhonchi heart regular rate and rhythm no murmurs gallops abdomen soft nontender without mass there are no palpable hernias felt. Patient is alert and oriented x3. Assessment & Plan Plan: Assessment/Plan Narrative: I discussed the procedures and rationale with the patient. I have discussed the procedure and the rationale with the patient including risks of bleeding, perforation which would necessitate a major operation, failure to find remove all lesions and the potential to tattoo. They appeared to understand and wished to proceed.
--- NOTE | 2018-07-15 13:00 | PM.PREOP ---
Pre-operative Note Interval Note Pre-op Check: Yes History & Physical exam performed today by Physician Changes: No ASA Class (for procedural sedation): II
[2018-07-15] MEDS: LIDOCAINE 4% SOLN 50 ML 20 ML TOP (13:10)
[2018-07-15] MEDS: TETRACAINE/BENZOCAINE/BUTAMBEN (CETACAINE) BOTTLE 1 SPRAY TOP (13:10)
[2018-07-15] MEDS: fentaNYL 250 MCG/5 ML INJ IV (13:45)
[2018-07-15] MEDS: MIDAZOLAM 5 MG/5 ML VIAL IV (13:46)
--- NOTE | 2018-07-15 13:46 | PM.OP.ENDO ---
Operative Date/Time/Diagnoses Date of procedure: 07/15/18 Time of procedure: 13:46 Pre-op diagnosis: Iron deficient anemia Post-op diagnosis: same (Strongly suspect that gastric bypass is preventing iron absorption. Sigmoid diverticulosis. One small polyp at 30 cm. Gastric reconstruction) Procedure & Clinicians Study performed: EGD and colonoscopy with cold biopsy Same procedure as scheduled: Yes Indications: Iron deficient anemia. Due for screening colonoscopy. Her last exam was 10 years ago. Procedure Notes SCOAP/Timeout: Performed Procedure in detail: The patient had topical anesthetic applied to oropharynx. She was placed in left lateral decubitus position and underwent IV sedation directed by the surgeon consisting of fentanyl and Versed. A bite block was inserted and the scope was advanced through it into the esophagus. The esophagus was unremarkable. GE junction was noted at[40 cm from the incisors]. Surprisingly because the patient did not tell me so, she had a very short gastric remnant attached to what appeared to be a Mando-en-Y limb of small bowel. This was the only outlet I could see to the she very short tubular gastric remnant. I passed the scope as far as I could through the Mando limb and then brought it back to the anastomotic area. This appeared to be a anastomosis of the side of the small bowel and the short remnant looked normal all. I really could not flip the scope up well into it but there was no ulceration. The remnant was short and unremarkable as was the esophagus. The scope was removed. The patient was repositioned given additional sedation. Digital rectal exam was[unremarkable]. The scope was inserted and advanced through the rectum into the sigmoid. I could not get beyond the sigmoid with a regular scope so it was removed. It was retroflexed in the rectum which had a normal appearance. Once it was removed I inserted a pediatric scope. This I passed through the sigmoid, descending, transverse, and ascending colon.[I Had a great deal of difficulty getting through the sigmoid because of stricturing and tortuosity. The patient was noted to have some sigmoid diverticulosis.]. The cecum was reached identified by the ileocecal valve and the appendiceal opening. The scope was gradually brought out. A Polyp was seen at 30 cm from the anal verge and removed with biopsy forceps. The scope was removed and the patient tolerated the procedure well. The scope was removed and the patient tolerated the procedure well. Scope withdrawal time: Uncertain Sedation minutes: 39 Findings: diverticulosis (Sigmoid), polyp (30 cm from the anal verge) and other findings (Tortuosity and stricturing in the sigmoid) Specimen(s): other (Polyp) Complications: none Recommendations: Colonscopy in 5 years Follow up: as needed Disposition: PACU
[2018-07-15 13:56] VITALS: BP 137/79; PULSE 67; RESP 16; TEMP 37.1; O2SAT 96
[2018-07-15 14:25] VITALS: BP 118/73; PULSE 73; RESP 16; TEMP 36.2; O2SAT 96
== END 2018-07-15 14:29 | disposition home or self-care (01) ==
PROVIDERS: PCP Family Medicine; Visit Provider Specialist
PROC: 0DJ08ZZ Inspection of Upper Intestinal Tract, Via Natural or Artificial Opening Endoscopic (ICD-10-PCS; CPT 43235; principal; 2018-07-15 11:45)
PROC: 0DJD8ZZ Inspection of Lower Intestinal Tract, Via Natural or Artificial Opening Endoscopic (ICD-10-PCS; CPT 45378; 2018-07-15 11:45)
DX: Z12.11 Encounter for screening for malignant neoplasm of colon (principal); D50.9 Iron deficiency anemia, unspecified; K57.30 Diverticulosis of large intestine without perforation or abscess without bleeding; I10 Essential (primary) hypertension; F41.9 Anxiety disorder, unspecified; Z98.0 Intestinal bypass and anastomosis status; D12.2 Benign neoplasm of ascending colon
CPT/HCPCS: 45380; 43235; 88305; 99152; 99153; J2250; J3010

== ENCOUNTER → 2018-09-16 06:54 | Outpatient (CLI) | payer MEDICARE, OTHER, SELFPAY ==
--- NOTE | 2018-09-16 | DI.US.S_ITS ---
PROCEDURE: US RENAL COMPLETE INDICATIONS: CHRONIC KIDNEY DISEASE TECHNIQUE: Real-time scanning was performed of the kidneys and bladder, with image documentation. COMPARISON: None. FINDINGS: Kidneys: Kidneys are normal in size. Right kidney measures 10.6 cm long; left kidney measures 11.4 cm long. Right renal cortical thickness is 1.4 cm; left renal cortical thickness is 1.6 cm. Renal cortical echotexture is normal. No hydronephrosis or nephrolithiasis. No suspicious solid mass lesions. Bladder: Urinary bladder decompressed and suboptimally visualized. Miscellaneous: No free pelvic fluid. IMPRESSION: Normal appearance of the kidneys. Dictated by: Arron Leal [facility] Interpreted: Carlitos Hernandez MD on 09/16/2018 at 9:14 Approved by: Carlitos Hernandez M.D. on 09/16/2018 at 11:17
[2018-09-16 08:01] LABS: Cholesterol 237 mg/dL (140-199); HDL Cholesterol 58 mg/dL (40-60); LDL Cholesterol Calculated 152 mg/dL (<100); Triglycerides 137 mg/dL (35-150)
[2018-09-16 08:05] LABS: High Sensitivity CRP - Cardiac 14.1 mg/L (1.0-3.0)
[2018-09-16 08:07] LABS: Rheumatoid Factor < 8.6 IU/mL (<12.0)
[2018-09-16 08:56] LABS: Free T4, Direct Thyroxine 0.89 ng/dL (0.78-2.19)
[2018-09-16 09:10] LABS: Thyroid Stimulating Hormone 2.93 uIU/mL (0.47-4.68)
[2018-09-18 15:45] LABS: Triiodothyronine T3 Total 102 ng/dL (76-181)
[2018-09-19 12:07] LABS: ANA Screen NEGATIVE (Negative); DNA Antibody Crithidia IFA NEGATIVE (Negative); Rheumatoid Factor <14 IU/mL; Sjogren Antiboday SS-A <1.0 NEG AI (<1.0 NEGATIVE); Sjogren Antiboday SS-B <1.0 NEG AI (<1.0 NEGATIVE); Sm Antibody <1.0 NEG AI (<1.0 NEGATIVE); Sm/RNP Antibody <1.0 NEG AI (<1.0 NEGATIVE)
== END ==
PROVIDERS: Family Provider Family Medicine; PCP Family Medicine; Referring Provider Student in an Organized Health Care Education/Training Program; Visit Provider Internal Medicine Hematology & Oncology
DX: D50.9 Iron deficiency anemia, unspecified (principal); N18.3 Chronic kidney disease, stage 3 (moderate); R68.89 Other general symptoms and signs; Z13.220 Encounter for screening for lipoid disorders; M25.50 Pain in unspecified joint
CPT/HCPCS: 36415; 76770; 80061; 84439; 84443; 84480; 86038; 86140; 86430

== ENCOUNTER 2018-12-08 14:31 | Emergency (ER) | payer MEDICARE, OTHER, SELFPAY ==
[2018-12-08 14:41] VITALS: BP 145/92; PULSE 85; RESP 20; TEMP 38.1; O2SAT 100
--- NOTE | 2018-12-08 14:47 | DI.RAD.S_ITS ---
PROCEDURE: XR WRIST RT MIN 3V INDICATIONS: pain, swelling, redness of wrist TECHNIQUE: 3 views of the wrist were acquired. COMPARISON: None. FINDINGS: Bones: No displaced fractures or dislocations are identified involving the osseous structures of the right wrist. There are severe degenerative changes involving the basal joint of the thumb. Ulnar positive variance is present. Soft tissues: Calcifications of the triangular fibrocartilage disc are present. Soft tissue swelling about the wrist is noted. No radiopaque foreign bodies are evident. No definite soft tissue air is appreciated. IMPRESSION: 1. No acute osseous abnormalities the right wrist. 2. 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 3. Chondrocalcinosis of the triangular fibrocartilage disc. Dictated by: Nicholas Cao M.D. on 12/08/2018 at 14:20 Approved by: Nicholas Cao M.D. on 12/08/2018 at 14:22
--- NOTE | 2018-12-08 14:50 | ED.SKABFB ---
HPI - Skin/Abscess/Foreign Bdy General Chief complaint: Skin/Abscess/Foreign Body Stated complaint: RIGHT ARM SWOLLEN UP ARM Time Seen by Provider: 12/08/18 14:43 Source: patient and family (sister) Mode of arrival: ambulatory Limitations: no limitations History of Present Illness HPI narrative: This is a 68-year-old female who comes to the emergency department with complaint of pain, redness and swelling of the right wrist, hand and streaking up the arm. Patient states she had a dog bite on the left arm on Saturday which appears to be healing well. This is her right wrist. She states she had something similar where she had redness and swelling and pain in the wrist on the left side several months or a year ago. She states she was put on antibiotics and it resolved. Patient has had a fever at home subjectively and has 1 objectively here in the department. She has pain with motion of the wrist. She has no numbness, no tingling. She has swelling of the hand and wrist as well. She has redness streaking up the arm. Patient denies any chest pain, no shortness of breath, no nausea no vomiting no other GI or urinary symptoms. Related Data Home Medications Medication Instructions Recorded Confirmed ascorbic acid (vitamin C) 1,000 mg PO BID #0 02/17/18 12/08/18 calcium carbonate 1,000 mg PO DAILY #0 02/17/18 12/08/18 cholecalciferol (vitamin D3) 5,000 iu PO DAILY #0 02/17/18 12/08/18 [Vitamin D3] lisinopril 20 mg PO DAILY #0 02/17/18 12/08/18 sertraline 200 mg PO QAM #0 02/17/18 12/08/18 metoprolol succinate 50 mg PO BEDTIME 06/16/18 12/08/18 acyclovir 800 mg PO BID PRN 12/08/18 12/08/18 naratriptan See Label Instructions .ROUTE 12/08/18 12/08/18 .COMPLEX risperidone 0.5 - 1 mg PO BEDTIME 12/08/18 12/08/18 trazodone 50 - 100 mg PO BEDTIME PRN 12/08/18 12/08/18 Previous Rx's Medication Instructions Recorded lamotrigine 100 mg tablet 100 mg PO DAILY #90 tab 09/18/18 topiramate 25 mg tablet 50 mg PO BID #360 tab 09/09/18 atorvastatin 40 mg tablet 40 mg PO BEDTIME #30 tab 09/22/18 mirtazapine 30 mg tablet 30 mg PO BEDTIME #90 tab 10/22/18 fremanezumab-vfrm 225 mg/1.5 mL 675 mg SUBCUT [id number] #4.5 ml 12/02/18 subcutaneous syringe clindamycin HCl 300 mg PO QID #40 cap 12/08/18 Allergies Allergy/AdvReac Type Severity Reaction Status Date / Time No Known Drug Allergies Allergy Verified 10/22/18 14:49 Review of Systems Review of Systems ROS Unobtainable: All systems reviewed & are unremarkable except as noted in HPI and below Constitutional Denies chills, Reports fever(s), Denies lethargy and Denies weakness ENT Ears, Nose, Mouth, and Throat: Denies neck pain Cardiovascular Denies chest pain, Reports edema (arm), Denies lightheadedness, Denies dyspnea and Denies dyspnea on exertion Respiratory Denies change in phlegm color, Denies chest congestion, Denies cough, Denies pain on inspiration, Denies dyspnea, Denies dyspnea on exertion and Denies wheezing Gastrointestinal Gastrointestinal: Denies abdominal pain, Denies change in bowel habits, Denies diarrhea, Denies nausea and Denies vomiting Genitourinary Denies hematuria, Denies dysuria, Denies flank pain and Denies urinary urgency Musculoskeletal Reports as per HPI, Denies myalgias, Reports arthralgias, Reports joint swelling (right wrist), Reports limited range of motion (2nd to pain), Denies neck pain, Denies numbness, Denies stiffness and Denies tingling Integumentary/Breasts Reports erythema and Reports wounds (left forearm) Neurologic Denies focal weakness, Denies numbness, Denies tingling and Denies weakness Allergic/Immunologic Denies wheezing [facility] Medical History Depression (Chronic) HTN (hypertension) (Chronic) Migraines (Chronic) PTSD (post-traumatic stress disorder) (Chronic) Surgical History H/O foot surgery (Resolved) History of bilateral breast reduction surgery (Resolved) History of partial hysterectomy (Resolved) Social History Smoking Status: Never smoker alcohol intake: never substance use type: does not use Exam Narrative Exam Narrative: GENERAL: Alert and oriented x three, well-nourished, well-appearing female in moderate distress. HEENT: Head normocephalic, atraumatic, EOMI, pupils reactive, face symmetric, moist mucous membranes NECK: Supple, full range of motion CARDIOVASCULAR: Regular rate and rhythm without murmurs, rubs or gallops. RESPIRATORY: Breath sounds equal bilaterally, no wheezes rales or rhonchi. ABDOMEN: Soft, nontender. Normoactive bowel sounds all 4 quadrants. No guarding or rebound, rigidity, no mass : No CVA tenderness EXTREMITIES: Patient has erythema of the wrist and dorsum of the hand and streaking up the forearm about midway. Patient has pain over the wrist and dorsum of the hand. She does not have any pain in the finger tips does have some discomfort with extension of the finger tips. Patient does not have any tenderness over the tendons themselves in the hand. Patient has cap refill less than 5 sec in all 5 fingers. She has 2+ radial pulse. She has normal sensation throughout. She does have 3 or 4 abrasions consistent with dog bite on the left forearm which appear clean, intact without any signs of infection. She has some mild edema in the fingers and hand. Neurovascularly intact NEUROLOGICAL: Cranial nerves II through XII grossly intact. Moving all extremities SKIN: Warm, dry, no petechiae, no rashes. See above. Initial Vital Signs Initial Vital Signs: Vital Signs Temperature 100.5 F H 12/08/18 14:41 Pulse Rate 85 12/08/18 14:41 Respiratory Rate 20 12/08/18 14:41 Blood Pressure 145/92 H 12/08/18 14:41 Pulse Oximetry 100 12/08/18 14:41 Course Orders Ordered: ED Orders 12/08/18 14:47 XR wrist RT min 3V Stat 12/08/18 15:00 Basic Metabolic Panel Stat Complete Blood Count AUTO DIFF Stat Lactate (Lactic Acid) Stat 12/08/18 15:23 Blood Culture Stat Discontinued Medications Diphtheria/Tetanus/Acell Pertussis (Adacel) 0.5 ml IM .ONCE ONE Stop: 12/08/18 14:48 Last Admin: 12/08/18 15:18 Dose: 0.5 ml Clindamycin Phosphate (Cleocin) 600 mg in 50 mls @ 50 mls/hr IV NOW ONE Stop: 12/08/18 15:48 Last Infusion: 12/08/18 16:19 Dose: 0 mls/hr Admin: 12/08/18 15:20 Dose: 50 mls/hr Ketorolac Tromethamine (Toradol) 15 mg IV NOW ONE Stop: 12/08/18 15:45 Last Admin: 12/08/18 15:45 Dose: 15 mg Morphine Sulfate (Morphine) 4 mg IV NOW ONE Stop: 12/08/18 17:05 Last Admin: 12/08/18 17:08 Dose: 4 mg Vital Signs - 8 hr 12/08/18 14:41 12/08/18 16:35 Temperature 100.5 F H Pulse Rate 85 87 Respiratory Rate 20 15 Blood Pressure 145/92 H Blood Pressure [Left Arm] 138/85 Pulse Oximetry 100 95 MDM - Skin/Abscess/Foreign Bdy Lab Data Attestation: I reviewed the patient's lab results. Result diagrams: 12/08/18 15:00 12/08/18 15:00 Lab Results 12/08/18 12/08/18 12/08/18 Range/Units 15:00 15:00 15:00 WBC 13.1 H (4.5-11.0) X10^3/uL RBC 4.52 (4.0-5.2) X10^6/uL Hgb 12.8 (12.0-16.0) g/dL Hct 38.9 (36-46) % MCV 86.0 (80-100) fL MCH 28.2 (26-34) PG MCHC 32.8 (30-36) % RDW 16.6 H (11.6-14.8) % Plt Count 191 (150-400) X10^3/uL Neut % (Auto) 82.7 H (50-75) % Lymph % (Auto) 9.5 L (25-40) % Davison % (Auto) 7.2 (3-14) % Eos % (Auto) 0.1 L (2-4) % Baso % (Auto) 0.5 (0-2) % Neut # (Auto) 03648 H (7204-8447) /uL Lymph # (Auto) 1200 (9024-9237) /uL Davison # (Auto) 900 (0-900) /uL Eos # (Auto) 0 (0-450) /uL Baso # (Auto) 100 (0-100) /uL Sodium 139 (137-145) mmol/L Potassium 4.0 (3.4-5.1) mmol/L Chloride 105 (98-107) mmol/L Carbon Dioxide 23 (22-32) mmol/L BUN 14 (7-17) mg/dL Creatinine 1.30 H (0.52-1.04) mg/dL Estimated GFR 40.9 L (>60) mL/min BUN/Creatinine Ratio 10.8 (6-22) Glucose 133 H (80-110) mg/dL Lactate 1.3 (0.7-2.1) mmol/L Calcium 9.2 (8.4-10.2) mg/dL Imaging Data wrist xray: Radiologist's impression: [address] [address] XRay Report Signed Patient: Darline BrayR#: [id number] : 1Acct:[id number] Age/Sex: 68 / FDate of Service: 12/08/18 Loc: ED Accession Number: [id number] Procedure: XR wrist RT min 3V Ordering Provider: Emily Flores D.O. PROCEDURE: XR WRIST RT MIN 3V INDICATIONS: pain, swelling, redness of wrist TECHNIQUE: 3 views of the wrist were acquired. COMPARISON: None. FINDINGS: Bones: No displaced fractures or dislocations are identified involving the osseous structures of the right wrist. There are severe degenerative changes involving the basal joint of the thumb. Ulnar positive variance is present. Soft tissues: Calcifications of the triangular fibrocartilage disc are present. Soft tissue swelling about the wrist is noted. No radiopaque foreign bodies are evident. No definite soft tissue air is appreciated. IMPRESSION: 1. No acute osseous abnormalities the right wrist. 2. 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 3. Chondrocalcinosis of the triangular fibrocartilage disc. Dictated by: Nicholas Cao M.D. on 12/08/2018 at 14:20 Approved by: Nicholas Cao M.D. on 12/08/2018 at 14:22 MDM Narrative Medical decision making narrative: Re-check after medications, Patient has not any worsening of her erythema. Patient and I discussed her returning and H 12 hr for recheck this they state is not necessarily possibility. She was somewhat unclear about if she would return. Patient was marked to delineate the area of infection she does have a white count of 13, her temperature improved here in the department and she does not show other signs of sepsis. Patient was given a dose of IV clindamycin as well as oral clindamycin. After discussing it sounds like she may return in the morning for recheck. I did discuss with Dr. Leigh from Orthopedic surgery as she has pain with extension of her fingers although none of the rest of her symptoms fit with a typical Knavel signs. suspicion for tenosynovitis is lower I suspect she has more of a cellulitis with her patchy erythema spreading up her forearm. Discharge Plan Departure Patient Disposition: Home Clinical Impression: Cellulitis of forearm, right Discharge Date/Time: 12/08/18 17:30 Interventions: ED Discharge Assessment Last Done: 12/08/18 17:28 Instructions: DI for Cellulitis -- Adult Activity Restrictions/Additional Instructions: Return in 12 hr for recheck. Take clindamycin every 6 hr until completely gone. I would start the oral antibiotics tonight. Your prescription was sent to [facility] in [place]. You may take ibuprofen and/or Tylenol as needed for pain. Return to the emergency department for fevers greater than 100.4, worsening redness, swelling, rapidly increasing pain, new numbness, new weakness or other new or concerning symptoms. Prescriptions: New clindamycin HCl 300 mg capsule 300 mg PO QID Qty: 40 RF: 0 No Action mirtazapine 30 mg tablet 30 mg PO BEDTIME Qty: 90 RF: 0 lisinopril 20 MG tablet 20 mg PO DAILY Qty: 0 RF: 0 sertraline 100 MG tablet 200 mg PO QAM Qty: 0 RF: 0 cholecalciferol (vitamin D3) [Vitamin D3] 1,000 UNIT tablet 5,000 iu PO DAILY Qty: 0 RF: 0 ascorbic acid (vitamin C) 500 MG tablet 1,000 mg PO BID Qty: 0 RF: 0 calcium carbonate 500 MG tablet 1,000 mg PO DAILY Qty: 0 RF: 0 lamotrigine 100 mg tablet 100 mg PO DAILY Qty: 90 RF: 1 topiramate [Topamax] 25 mg tablet 50 mg PO BID Qty: 360 RF: 0 atorvastatin 40 mg tablet 40 mg PO BEDTIME Qty: 30 RF: 5 fremanezumab-vfrm [Ajovy] 225 mg/1.5 mL syringe 675 mg SUBCUT [id number] Qty: 4.5 RF: 3 acyclovir 800 mg tablet 800 mg PO BID PRN (Reason: outbreaks) RF: 0 trazodone 100 mg tablet 50 - 100 mg PO BEDTIME PRN (Reason: Insomnia) RF: 0 naratriptan 2.5 mg tablet See Label Instructions .ROUTE .COMPLEX RF: 0 risperidone 1 mg Tablet 0.5 - 1 mg PO BEDTIME RF: 0 metoprolol succinate 50 mg tablet extended release 24 hr 50 mg PO BEDTIME RF: 0
--- NOTE | 2018-12-08 14:54 | ED_ITS ---
HPI - Skin/Abscess/Foreign Bdy General Chief complaint: Skin/Abscess/Foreign Body Stated complaint: RIGHT ARM SWOLLEN UP ARM Time Seen by Provider: 12/08/18 14:43 Source: patient and family (sister) Mode of arrival: ambulatory Limitations: no limitations History of Present Illness HPI narrative: This is a 68-year-old female who comes to the emergency department with complaint of pain, redness and swelling of the right wrist, hand and streaking up the arm. Patient states she had a dog bite on the left arm on Saturday which appears to be healing well. This is her right wrist. She states she had something similar where she had redness and swelling and pain in the wrist on the left side several months or a year ago. She states she was put on antibiotics and it resolved. Patient has had a fever at home subjectively and has 1 objectively here in the department. She has pain with motion of the wrist. She has no numbness, no tingling. She has swelling of the hand and wrist as well. She has redness streaking up the arm. Patient denies any chest pain, no shortness of breath, no nausea no vomiting no other GI or urinary symptoms. Related Data Home Medications Medication Instructions Recorded Confirmed ascorbic acid (vitamin C) 1,000 mg PO BID #0 02/17/18 12/08/18 calcium carbonate 1,000 mg PO DAILY #0 02/17/18 12/08/18 cholecalciferol (vitamin D3) 5,000 iu PO DAILY #0 02/17/18 12/08/18 [Vitamin D3] lisinopril 20 mg PO DAILY #0 02/17/18 12/08/18 sertraline 200 mg PO QAM #0 02/17/18 12/08/18 metoprolol succinate 50 mg PO BEDTIME 06/16/18 12/08/18 acyclovir 800 mg PO BID PRN 12/08/18 12/08/18 naratriptan See Label Instructions .ROUTE 12/08/18 12/08/18 .COMPLEX risperidone 0.5 - 1 mg PO BEDTIME 12/08/18 12/08/18 trazodone 50 - 100 mg PO BEDTIME PRN 12/08/18 12/08/18 Previous Rx's Medication Instructions Recorded lamotrigine 100 mg tablet 100 mg PO DAILY #90 tab 09/18/18 topiramate 25 mg tablet 50 mg PO BID #360 tab 09/09/18 atorvastatin 40 mg tablet 40 mg PO BEDTIME #30 tab 09/22/18 mirtazapine 30 mg tablet 30 mg PO BEDTIME #90 tab 10/22/18 fremanezumab-vfrm 225 mg/1.5 mL 675 mg SUBCUT [id number] #4.5 ml 12/02/18 subcutaneous syringe clindamycin HCl 300 mg PO QID #40 cap 12/08/18 Allergies Allergy/AdvReac Type Severity Reaction Status Date / Time No Known Drug Allergies Allergy Verified 10/22/18 14:49 Review of Systems Review of Systems ROS Unobtainable: All systems reviewed & are unremarkable except as noted in HPI and below Constitutional Denies chills, Reports fever(s), Denies lethargy and Denies weakness ENT Ears, Nose, Mouth, and Throat: Denies neck pain Cardiovascular Denies chest pain, Reports edema (arm), Denies lightheadedness, Denies dyspnea and Denies dyspnea on exertion Respiratory Denies change in phlegm color, Denies chest congestion, Denies cough, Denies pain on inspiration, Denies dyspnea, Denies dyspnea on exertion and Denies wheezing Gastrointestinal Gastrointestinal: Denies abdominal pain, Denies change in bowel habits, Denies diarrhea, Denies nausea and Denies vomiting Genitourinary Denies hematuria, Denies dysuria, Denies flank pain and Denies urinary urgency Musculoskeletal Reports as per HPI, Denies myalgias, Reports arthralgias, Reports joint swelling (right wrist), Reports limited range of motion (2nd to pain), Denies neck pain, Denies numbness, Denies stiffness and Denies tingling Integumentary/Breasts Reports erythema and Reports wounds (left forearm) Neurologic Denies focal weakness, Denies numbness, Denies tingling and Denies weakness Allergic/Immunologic Denies wheezing [facility] Medical History Depression (Chronic) HTN (hypertension) (Chronic) Migraines (Chronic) PTSD (post-traumatic stress disorder) (Chronic) Surgical History H/O foot surgery (Resolved) History of bilateral breast reduction surgery (Resolved) History of partial hysterectomy (Resolved) Social History Smoking Status: Never smoker alcohol intake: never substance use type: does not use Exam Narrative Exam Narrative: GENERAL: Alert and oriented x three, well-nourished, well- appearing female in moderate distress. HEENT: Head normocephalic, atraumatic, EOMI, pupils reactive, face symmetric, moist mucous membranes NECK: Supple, full range of motion CARDIOVASCULAR: Regular rate and rhythm without murmurs, rubs or gallops. RESPIRATORY: Breath sounds equal bilaterally, no wheezes rales or rhonchi. ABDOMEN: Soft, nontender. Normoactive bowel sounds all 4 quadrants. No guarding or rebound, rigidity, no mass : No CVA tenderness EXTREMITIES: Patient has erythema of the wrist and dorsum of the hand and streaking up the forearm about midway. Patient has pain over the wrist and dorsum of the hand. She does not have any pain in the finger tips does have some discomfort with extension of the finger tips. Patient does not have any tenderness over the tendons themselves in the hand. Patient has cap refill less than 5 sec in all 5 fingers. She has 2+ radial pulse. She has normal sensation throughout. She does have 3 or 4 abrasions consistent with dog bite on the left forearm which appear clean, intact without any signs of infection. She has some mild edema in the fingers and hand. Neurovascularly intact NEUROLOGICAL: Cranial nerves II through XII grossly intact. Moving all extremities SKIN: Warm, dry, no petechiae, no rashes. See above. Initial Vital Signs Initial Vital Signs: Vital Signs Temperature 100.5 F H 12/08/18 14:41 Pulse Rate 85 12/08/18 14:41 Respiratory Rate 20 12/08/18 14:41 Blood Pressure 145/92 H 12/08/18 14:41 Pulse Oximetry 100 12/08/18 14:41 Course Orders Ordered: ED Orders 12/08/18 14:47 XR wrist RT min 3V Stat 12/08/18 15:00 Basic Metabolic Panel Stat Complete Blood Count AUTO DIFF Stat Lactate (Lactic Acid) Stat 12/08/18 15:23 Blood Culture Stat Discontinued Medications Diphtheria/Tetanus/Acell Pertussis (Adacel) 0.5 ml IM .ONCE ONE Stop: 12/08/18 14:48 Last Admin: 12/08/18 15:18 Dose: 0.5 ml Clindamycin Phosphate (Cleocin) 600 mg in 50 mls @ 50 mls/hr IV NOW ONE Stop: 12/08/18 15:48 Last Infusion: 12/08/18 16:19 Dose: 0 mls/hr Admin: 12/08/18 15:20 Dose: 50 mls/hr Ketorolac Tromethamine (Toradol) 15 mg IV NOW ONE Stop: 12/08/18 15:45 Last Admin: 12/08/18 15:45 Dose: 15 mg Morphine Sulfate (Morphine) 4 mg IV NOW ONE Stop: 12/08/18 17:05 Last Admin: 12/08/18 17:08 Dose: 4 mg Vital Signs - 8 hr 12/08/18 14:41 12/08/18 16:35 Temperature 100.5 F H Pulse Rate 85 87 Respiratory Rate 20 15 Blood Pressure 145/92 H Blood Pressure [Left Arm] 138/85 Pulse Oximetry 100 95 MDM - Skin/Abscess/Foreign Bdy Lab Data Attestation: I reviewed the patient's lab results. Result diagrams: 12/08/18 15:00 12/08/18 15:00 Lab Results 12/08/18 12/08/18 12/08/18 Range/Units 15:00 15:00 15:00 WBC 13.1 H (4.5-11.0) X10^3/uL RBC 4.52 (4.0-5.2) X10^6/uL Hgb 12.8 (12.0-16.0) g/dL Hct 38.9 (36-46) % MCV 86.0 (80-100) fL MCH 28.2 (26-34) PG MCHC 32.8 (30-36) % RDW 16.6 H (11.6-14.8) % Plt Count 191 (150-400) X10^3/uL Neut % (Auto) 82.7 H (50-75) % Lymph % (Auto) 9.5 L (25-40) % Hall % (Auto) 7.2 (3-14) % Eos % (Auto) 0.1 L (2-4) % Baso % (Auto) 0.5 (0-2) % Neut # (Auto) 33356 H (0512-4342) /uL Lymph # (Auto) 1200 (6858-6515) /uL Hall # (Auto) 900 (0-900) /uL Eos # (Auto) 0 (0-450) /uL Baso # (Auto) 100 (0-100) /uL Sodium 139 (137-145) mmol/L Potassium 4.0 (3.4-5.1) mmol/L Chloride 105 (98-107) mmol/L Carbon Dioxide 23 (22-32) mmol/L BUN 14 (7-17) mg/dL Creatinine 1.30 H (0.52-1.04) mg/dL Estimated GFR 40.9 L (>60) mL/min BUN/Creatinine Ratio 10.8 (6-22) Glucose 133 H (80-110) mg/dL Lactate 1.3 (0.7-2.1) mmol/L Calcium 9.2 (8.4-10.2) mg/dL Imaging Data wrist xray: Radiologist's impression: [address] [address] XRay Report Signed Patient: Darline BrayR#: [id number] : 1Acct:[id number] Age/Sex: 68 / FDate of Service: 12/08/18 Loc: ED Accession Number: [id number] Procedure: XR wrist RT min 3V Ordering Provider: Emily Flores D.O. PROCEDURE: XR WRIST RT MIN 3V INDICATIONS: pain, swelling, redness of wrist TECHNIQUE: 3 views of the wrist were acquired. COMPARISON: None. FINDINGS: Bones: No displaced fractures or dislocations are identified involving the osseous structures of the right wrist. There are severe degenerative changes involving the basal joint of the thumb. Ulnar positive variance is present. Soft tissues: Calcifications of the triangular fibrocartilage disc are present. Soft tissue swelling about the wrist is noted. No radiopaque foreign bodies are evident. No definite soft tissue air is appreciated. IMPRESSION: 1. No acute osseous abnormalities the right wrist. 2. 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 3. Chondrocalcinosis of the triangular fibrocartilage disc. Dictated by: Nicholas Cao M.D. on 12/08/2018 at 14:20 Approved by: Nicholas Cao M.D. on 12/08/2018 at 14:22 MDM Narrative Medical decision making narrative: Re-check after medications, Patient has not any worsening of her erythema. Patient and I discussed her returning and H 12 hr for recheck this they state is not necessarily possibility. She was somewhat unclear about if she would return. Patient was marked to delineate the area of infection she does have a white count of 13, her temperature improved here in the department and she does not show other signs of sepsis. Patient was given a dose of IV clindamycin as well as oral clindamycin. After discussing it sounds like she may return in the morning for recheck. I did discuss with Dr. Leigh from Orthopedic surgery as she has pain with extension of her fingers although none of the rest of her symptoms fit with a typical Knavel signs. suspicion for tenosynovitis is lower I suspect she has more of a cellulitis with her patchy erythema spreading up her forearm. Discharge Plan Departure Patient Disposition: Home Clinical Impression: Cellulitis of forearm, right Discharge Date/Time: 12/08/18 17:30 Interventions: ED Discharge Assessment Last Done: 12/08/18 17:28 Instructions: DI for Cellulitis -- Adult Activity Restrictions/Additional Instructions: Return in 12 hr for recheck. Take clindamycin every 6 hr until completely gone. I would start the oral antibiotics tonight. Your prescription was sent to [facility] in [place]. You may take ibuprofen and/or Tylenol as needed for pain. Return to the emergency department for fevers greater than 100.4, worsening redness, swelling, rapidly increasing pain, new numbness, new weakness or other new or concerning symptoms. Prescriptions: New clindamycin HCl 300 mg capsule 300 mg PO QID Qty: 40 RF: 0 No Action mirtazapine 30 mg tablet 30 mg PO BEDTIME Qty: 90 RF: 0 lisinopril 20 MG tablet 20 mg PO DAILY Qty: 0 RF: 0 sertraline 100 MG tablet 200 mg PO QAM Qty: 0 RF: 0 cholecalciferol (vitamin D3) [Vitamin D3] 1,000 UNIT tablet 5,000 iu PO DAILY Qty: 0 RF: 0 ascorbic acid (vitamin C) 500 MG tablet 1,000 mg PO BID Qty: 0 RF: 0 calcium carbonate 500 MG tablet 1,000 mg PO DAILY Qty: 0 RF: 0 lamotrigine 100 mg tablet 100 mg PO DAILY Qty: 90 RF: 1 topiramate [Topamax] 25 mg tablet 50 mg PO BID Qty: 360 RF: 0 atorvastatin 40 mg tablet 40 mg PO BEDTIME Qty: 30 RF: 5 fremanezumab-vfrm [Ajovy] 225 mg/1.5 mL syringe 675 mg SUBCUT [id number] Qty: 4.5 RF: 3 acyclovir 800 mg tablet 800 mg PO BID PRN (Reason: outbreaks) RF: 0 trazodone 100 mg tablet 50 - 100 mg PO BEDTIME PRN (Reason: Insomnia) RF: 0 naratriptan 2.5 mg tablet See Label Instructions .ROUTE .COMPLEX RF: 0 risperidone 1 mg Tablet 0.5 - 1 mg PO BEDTIME RF: 0 metoprolol succinate 50 mg tablet extended release 24 hr 50 mg PO BEDTIME RF: 0
[2018-12-08 15:15] LABS: Add Manual Diff / Slide Review NO; Basophils Absolute Auto 100 /uL (0-100); Basophils Percent Auto 0.5 % (0-2); Eosinophils Absolute Auto 0 /uL (0-450); Eosinophils Percent Auto 0.1 % (2-4); Hematocrit 38.9 % (36-46); Hemoglobin 12.8 g/dL (12.0-16.0); Lymphocytes Absolute Auto 1200 /uL (1100-4500); Lymphocytes Percent Auto 9.5 % (25-40); Mean Corpuscular HGB Conc 32.8 % (30-36); Mean Corpuscular Hemoglobin 28.2 PG (26-34); Monocytes Absolute Auto 900 /uL (0-900); Monocytes Percent Auto 7.2 % (3-14); Neutrophils Absolute Auto 10900 /uL (1500-7000); Neutrophils Percent Auto 82.7 % (50-75); Platelet Count 191 X10^3/uL (150-400); Red Blood Cell Count 4.52 X10^6/uL (4.0-5.2); Red Cell Distribution Width 16.6 % (11.6-14.8); White Blood Cell Count 13.1 X10^3/uL (4.5-11.0)
[2018-12-08] MEDS: TET,DIPH,PERTUSS(ACELL),VAC/PF 0.5 ML SYRINGE IM (15:18)
[2018-12-08] MEDS: CLINDAMYCIN 600 MG/50 ML PIGGYBACK 50 MG IV (15:20)
[2018-12-08 15:45] LABS: BUN Creatinine Ratio 10.8 (6-22); Blood Urea Nitrogen 14 mg/dL (7-17); Calcium 9.2 mg/dL (8.4-10.2); Carbon Dioxide 23 mmol/L (22-32); Chloride 105 mmol/L (98-107); Estimated Glomerular Filt Rate 40.9 mL/min (>60); Glucose 133 mg/dL (80-110); HEMOLYSIS < 15 (0-50); Lactate (Lactic Acid) 1.3 mmol/L (0.7-2.1); Sodium 139 mmol/L (137-145)
[2018-12-08] MEDS: KETOROLAC 60 MG/2 ML VIAL 15 MG IV (15:45)
[2018-12-08 16:35] VITALS: BP 138/85; PULSE 87; RESP 15; O2SAT 95
[2018-12-08] MEDS: MORPHINE 4 MG/ML INJ IV (17:08)
== END 2018-12-08 17:30 | disposition home or self-care (01) ==
PROVIDERS: Emergency Provider Emergency Medicine; PCP Student in an Organized Health Care Education/Training Program
DX: L03.113 Cellulitis of right upper limb (principal)
CPT/HCPCS: 36415; 36591; 73110; 80048; 83605; 85025; 87040; 90471; 96365; 96375; 99283; 99284; 90715; J1885; J2270

== ENCOUNTER 2018-12-09 09:03 | Emergency (ER) | payer MEDICARE, OTHER, SELFPAY ==
[2018-12-09 09:22] VITALS: BP 147/77; PULSE 96; RESP 16; TEMP 37.3; O2SAT 98
--- NOTE | 2018-12-09 09:54 | ED.RECABL ---
HPI - Recheck/Abnormal Lab/Rx General Chief Complaint: Recheck/Abnormal Lab/Rx Stated Complaint: right hand swollen/told to come back to er Time Seen by Provider: 12/09/18 09:33 Source: patient Mode of arrival: ambulatory Limitations: no limitations History of Present Illness HPI narrative: Patient is a 68-year-old female presenting with a right wrist swelling and redness ongoing for the last 2 nights. She was actually bit by a dog on her left wrist 4 days ago. She was seen evaluated yesterday for the right wrist. Blood work and started on clindamycin. She states that the swelling has continued she received 1 dose of IV clindamycin and she has taken 2 doses since his and she feels that it has not gotten any better. She is has a marker outline of the redness and swelling it does not appear to have significantly exceed that. However she states that it is still painful. She has swelling in all fingers. No sign of trauma. MD complaint: wound re-check Related Data Home Medications Medication Instructions Recorded Confirmed ascorbic acid (vitamin C) 1,000 mg PO BID #0 02/17/18 12/09/18 calcium carbonate 1,000 mg PO DAILY #0 02/17/18 12/09/18 cholecalciferol (vitamin D3) 5,000 iu PO DAILY #0 02/17/18 12/09/18 [Vitamin D3] lisinopril 20 mg PO DAILY #0 02/17/18 12/09/18 sertraline 200 mg PO QAM #0 02/17/18 12/09/18 metoprolol succinate 50 mg PO BEDTIME 06/16/18 12/09/18 acyclovir 800 mg PO BID PRN 12/08/18 12/09/18 naratriptan See Label Instructions .ROUTE 12/08/18 12/09/18 .COMPLEX risperidone 0.5 - 1 mg PO BEDTIME 12/08/18 12/09/18 trazodone 50 - 100 mg PO BEDTIME PRN 12/08/18 12/09/18 Previous Rx's Medication Instructions Recorded lamotrigine 100 mg tablet 100 mg PO DAILY #90 tab 07/29/18 topiramate 25 mg tablet 50 mg PO BID #360 tab 09/09/18 atorvastatin 40 mg tablet 40 mg PO BEDTIME #30 tab 09/22/18 mirtazapine 30 mg tablet 30 mg PO BEDTIME #90 tab 10/22/18 fremanezumab-vfrm 225 mg/1.5 mL 675 mg SUBCUT [id number] #4.5 ml 12/02/18 subcutaneous syringe Allergies Allergy/AdvReac Type Severity Reaction Status Date / Time No Known Drug Allergies Allergy Verified 10/22/18 14:49 Review of Systems Review of Systems GENERAL: Denies chills, fatigue, malaise, fever, sweats, travel HEENT: Denies sinus pain, ear pain, sore throat, difficulty swallowing, neck pain RESPIRATORY: Denies dyspnea, cough, wheezing, hemoptysis, sputum. CARDIOVASCULAR: Denies chest pain, palpitations, orthopnea, edema GASTROINTESTINAL: Denies nausea, vomiting, abdominal pain, diarrhea, constipation, melena. : Denies dysuria, frequency, incontinence, hematuria, urinary retention, flank pain. MUSCULOSKELETAL: Denies weakness, joint pain, or bony pain SKIN: See HPI NEUROLOGIC: Denies weakness, dizziness, headache, numbness, change in speech, confusion PSYCHIATRIC: No concerning psychosocial issues. 12 point review of systems is negative except for those stated above and HPI [facility] Social History Smoking Status: Never smoker alcohol intake: never substance use type: does not use Exam Initial Vital Signs Initial Vital Signs: Vital Signs Temperature 99.1 F 12/09/18 09:22 Pulse Rate 96 H 12/09/18 09:22 Respiratory Rate 16 12/09/18 09:22 Blood Pressure 147/77 H 12/09/18 09:22 Pulse Oximetry 98 12/09/18 09:22 GENERAL: Well-appearing, well-nourished and in no acute distress. HEENT: Head atraumatic,EOMI, pupils reactive, face symmetric, moist mucous membranes CARDIOVASCULAR: Regular rate and rhythm without murmurs, rubs or gallops. RESPIRATORY: Breath sounds equal bilaterally, no wheezes rales or rhonchi. ABDOMEN: Soft, nontender. Normoactive bowel sounds all 4 quadrants. No guarding or rebound. : No CVA tenderness EXTREMITIES: Normal range of motion, no clubbing or edema. Neurovascularly intact. -right wrist edema noted mild swelling within the marked lines. No significant streaking. She is able to move all her fingers though they are held in slight flexed position. Cap refills less than 2 sec. Left wrist dog jones are noted without surrounding erythema pus or swelling NEUROLOGICAL: Alert and oriented x4.Normal gait and speech. Cranial nerves II through XII grossly intact. SKIN: Warm, dry, no laceration, no petechiae, no rashes or lesions. Scores qSOFA Altered Mental Status (GCS <15): No Respiratory rate greater than/equal to 22: No Systolic blood pressure less than or equal to 100: No qSOFA Total: 0 0-1 Not High Risk 1-3 High risk Course Orders Ordered: ED Orders 12/09/18 10:00 Basic Metabolic Panel Stat Complete Blood Count AUTO DIFF Stat Lactate (Lactic Acid) Stat Procalcitonin Stat Discontinued Medications Clindamycin Phosphate (Cleocin) 600 mg in 50 mls @ 50 mls/hr IV NOW ONE Stop: 12/09/18 10:45 Last Infusion: 12/09/18 11:16 Dose: 0 mls/hr Admin: 12/09/18 10:14 Dose: 50 mls/hr Ketorolac Tromethamine (Toradol) 15 mg IV NOW ONE Stop: 12/09/18 09:42 Last Admin: 12/09/18 10:14 Dose: 15 mg Vital Signs - 8 hr 12/09/18 11:12 Pulse Rate 85 Respiratory Rate 18 Blood Pressure [Left Arm] 142/78 H Pulse Oximetry 97 MDM - Recheck/Abnormal Lab/Rx Medical Records Attestation: I reviewed the patient's medical records. Lab Data Attestation: I reviewed the patient's lab results. Result diagrams: 12/09/18 10:00 12/09/18 10:00 Lab Results 12/09/18 12/09/18 12/09/18 Range/Units 10:00 10:00 10:00 WBC 10.1 (4.5-11.0) X10^3/uL RBC 4.07 (4.0-5.2) X10^6/uL Hgb 11.6 L (12.0-16.0) g/dL Hct 34.9 L (36-46) % MCV 85.8 (80-100) fL MCH 28.4 (26-34) PG MCHC 33.1 (30-36) % RDW 16.1 H (11.6-14.8) % Plt Count 168 (150-400) X10^3/uL Neut % (Auto) 71.0 (50-75) % Lymph % (Auto) 18.5 L (25-40) % [place] % (Auto) 8.8 (3-14) % Eos % (Auto) 1.3 L (2-4) % Baso % (Auto) 0.4 (0-2) % Neut # (Auto) 7200 H (2181-2151) /uL Lymph # (Auto) 1900 (2673-8868) /uL [place] # (Auto) 900 (0-900) /uL Eos # (Auto) 100 (0-450) /uL Baso # (Auto) 0 (0-100) /uL Sodium 138 (137-145) mmol/L Potassium 3.4 (3.4-5.1) mmol/L Chloride 107 (98-107) mmol/L Carbon Dioxide 23 (22-32) mmol/L BUN 19 H (7-17) mg/dL Creatinine 1.20 H (0.52-1.04) mg/dL Estimated GFR 44.8 L (>60) mL/min BUN/Creatinine Ratio 15.8 (6-22) Glucose 105 (80-110) mg/dL Lactate (0.7-2.1) mmol/L Calcium 8.7 (8.4-10.2) mg/dL Procalcitonin 0.22 (<0.5) ng/mL 12/09/18 Range/Units 10:00 WBC (4.5-11.0) X10^3/uL RBC (4.0-5.2) X10^6/uL Hgb (12.0-16.0) g/dL Hct (36-46) % MCV (80-100) fL MCH (26-34) PG MCHC (30-36) % RDW (11.6-14.8) % Plt Count (150-400) X10^3/uL Neut % (Auto) (50-75) % Lymph % (Auto) (25-40) % [place] % (Auto) (3-14) % Eos % (Auto) (2-4) % Baso % (Auto) (0-2) % Neut # (Auto) (2129-4448) /uL Lymph # (Auto) (0884-4495) /uL [place] # (Auto) (0-900) /uL Eos # (Auto) (0-450) /uL Baso # (Auto) (0-100) /uL Sodium (137-145) mmol/L Potassium (3.4-5.1) mmol/L Chloride (98-107) mmol/L Carbon Dioxide (22-32) mmol/L BUN (7-17) mg/dL Creatinine (0.52-1.04) mg/dL Estimated GFR (>60) mL/min BUN/Creatinine Ratio (6-22) Glucose (80-110) mg/dL Lactate 0.9 (0.7-2.1) mmol/L Calcium (8.4-10.2) mg/dL Procalcitonin (<0.5) ng/mL MDM Narrative Medical decision making narrative: Patient has mild worsening erythema but leukocytosis has improved. He has mild elevation in procalcitonin. Does not appear grossly septic. I discussed with patient at this time I just recommend continuing current antibiotic is and re-evaluation in the morning. I am here again tomorrow. I also recommended that she keep arm elevated we talked about different ways and I have showed her. At this time I do not think tenosynovitis she has significant swelling in all fingers minimal erythema. No sign of trauma. I discussed all findings with the patient , Education has been performed regarding treatment plan, diagnosis, warning signs and symptoms and all concerns have been addressed. Verbally agree with and understood all of the above. Discharge Plan Departure Patient Disposition: Home Clinical Impression: Cellulitis of forearm, right Discharge Date/Time: 12/09/18 11:21 Interventions: ED Discharge Assessment Last Done: 12/09/18 11:16 Instructions: DI for Cellulitis -- Adult Activity Restrictions/Additional Instructions: *You have been diagnosed with right arm cellulitis *What to do: At this time he likely need longer on antibiotics. Recommended beginning to ER for evaluation tomorrow, at which time if not better may require admission Keep arm and hand elevated as much as possible *Continue to take medications as directed -continue clindamycin *Follow up with your primary care provider in 2-3 days *Return to ER if you should have inability to move fingers, significant redness be on marked line, significant swelling or any new, worsening or concerning symptoms Prescriptions: No Action mirtazapine 30 mg tablet 30 mg PO BEDTIME Qty: 90 RF: 0 lisinopril 20 MG tablet 20 mg PO DAILY Qty: 0 RF: 0 sertraline 100 MG tablet 200 mg PO QAM Qty: 0 RF: 0 cholecalciferol (vitamin D3) [Vitamin D3] 1,000 UNIT tablet 5,000 iu PO DAILY Qty: 0 RF: 0 ascorbic acid (vitamin C) 500 MG tablet 1,000 mg PO BID Qty: 0 RF: 0 calcium carbonate 500 MG tablet 1,000 mg PO DAILY Qty: 0 RF: 0 lamotrigine 100 mg tablet 100 mg PO DAILY Qty: 90 RF: 1 topiramate [Topamax] 25 mg tablet 50 mg PO BID Qty: 360 RF: 0 atorvastatin 40 mg tablet 40 mg PO BEDTIME Qty: 30 RF: 5 fremanezumab-vfrm [Ajovy] 225 mg/1.5 mL syringe 675 mg SUBCUT [id number] Qty: 4.5 RF: 3 acyclovir 800 mg tablet 800 mg PO BID PRN (Reason: outbreaks) RF: 0 trazodone 100 mg tablet 50 - 100 mg PO BEDTIME PRN (Reason: Insomnia) RF: 0 naratriptan 2.5 mg tablet See Label Instructions .ROUTE .COMPLEX RF: 0 risperidone 1 mg Tablet 0.5 - 1 mg PO BEDTIME RF: 0 metoprolol succinate 50 mg tablet extended release 24 hr 50 mg PO BEDTIME RF: 0 Referrals: Kris Hayes MD [Primary Care Provider] -
[2018-12-09] MEDS: CLINDAMYCIN 600 MG/50 ML PIGGYBACK 50 MG IV (10:14)
[2018-12-09] MEDS: KETOROLAC 60 MG/2 ML VIAL 15 MG IV (10:14)
[2018-12-09 10:21] LABS: Add Manual Diff / Slide Review NO; Basophils Absolute Auto 0 /uL (0-100); Basophils Percent Auto 0.4 % (0-2); Eosinophils Absolute Auto 100 /uL (0-450); Eosinophils Percent Auto 1.3 % (2-4); Hematocrit 34.9 % (36-46); Hemoglobin 11.6 g/dL (12.0-16.0); Lymphocytes Absolute Auto 1900 /uL (1100-4500); Lymphocytes Percent Auto 18.5 % (25-40); Mean Corpuscular HGB Conc 33.1 % (30-36); Mean Corpuscular Hemoglobin 28.4 PG (26-34); Mean Corpuscular Volume 85.8 fL (80-100); Monocytes Absolute Auto 900 /uL (0-900); Monocytes Percent Auto 8.8 % (3-14); Neutrophils Absolute Auto 7200 /uL (1500-7000); Platelet Count 168 X10^3/uL (150-400); Red Blood Cell Count 4.07 X10^6/uL (4.0-5.2); Red Cell Distribution Width 16.1 % (11.6-14.8); White Blood Cell Count 10.1 X10^3/uL (4.5-11.0)
[2018-12-09 10:30] LABS: Lactate (Lactic Acid) 0.9 mmol/L (0.7-2.1)
[2018-12-09 10:31] LABS: BUN Creatinine Ratio 15.8 (6-22); Blood Urea Nitrogen 19 mg/dL (7-17); Calcium 8.7 mg/dL (8.4-10.2); Carbon Dioxide 23 mmol/L (22-32); Chloride 107 mmol/L (98-107); Estimated Glomerular Filt Rate 44.8 mL/min (>60); Glucose 105 mg/dL (80-110); HEMOLYSIS 18 (0-50); Potassium 3.4 mmol/L (3.4-5.1); Sodium 138 mmol/L (137-145)
[2018-12-09 10:55] LABS: Procalcitonin 0.22 ng/mL (<0.5)
[2018-12-09 11:12] VITALS: BP 142/78; PULSE 85; RESP 18; O2SAT 97
== END 2018-12-09 11:21 | disposition home or self-care (01) ==
PROVIDERS: Emergency Provider Emergency Medicine; PCP Student in an Organized Health Care Education/Training Program
DX: L03.113 Cellulitis of right upper limb (principal)
CPT/HCPCS: 36591; 80048; 83605; 84145; 85025; 96365; 96375; 99283; 99284; J1885

== ENCOUNTER → 2019-01-01 15:21 | Outpatient (CLI) | payer MEDICARE, OTHER, SELFPAY ==
[2019-01-01 16:22] LABS: Add Manual Diff / Slide Review NO; Basophils Absolute Auto 100 /uL (0-100); Basophils Percent Auto 0.8 % (0-2); Eosinophils Absolute Auto 200 /uL (0-450); Eosinophils Percent Auto 2.8 % (2-4); Hematocrit 36.6 % (36-46); Hemoglobin 11.8 g/dL (12.0-16.0); Lymphocytes Absolute Auto 2200 /uL (1100-4500); Lymphocytes Percent Auto 26.5 % (25-40); Mean Corpuscular HGB Conc 32.2 % (30-36); Mean Corpuscular Hemoglobin 28.9 PG (26-34); Mean Corpuscular Volume 89.7 fL (80-100); Monocytes Absolute Auto 600 /uL (0-900); Monocytes Percent Auto 6.6 % (3-14); Neutrophils Absolute Auto 5300 /uL (1500-7000); Neutrophils Percent Auto 63.3 % (50-75); Platelet Count 221 X10^3/uL (150-400); Red Blood Cell Count 4.09 X10^6/uL (4.0-5.2); Red Cell Distribution Width 16.5 % (11.6-14.8); White Blood Cell Count 8.5 X10^3/uL (4.5-11.0)
[2019-01-01 17:13] LABS: Alanine Aminotransferase 26 IU/L (9-52); Albumin Globulin Ratio 1.3 (1.0-2.8); Alkaline Phosphatase 115 U/L (38-126); Aspartate Aminotransferase 24 IU/L (14-36); BUN Creatinine Ratio 15.4 (6-22); Bilirubin Total 0.3 mg/dL (0.2-1.3); Blood Urea Nitrogen 20 mg/dL (7-17); Calcium 8.8 mg/dL (8.4-10.2); Carbon Dioxide 20 mmol/L (22-32); Chloride 108 mmol/L (98-107); Estimated Glomerular Filt Rate 40.9 mL/min (>60); Glucose 134 mg/dL (80-110); HEMOLYSIS < 15 (0-50); Potassium 3.7 mmol/L (3.4-5.1); Sodium 140 mmol/L (137-145)
[2019-01-01 17:15] LABS: HEMOLYSIS < 15 (0-50); Iron 47 ug/dL (37-170)
[2019-01-01 17:30] LABS: Percent Iron Saturation 11 % (15-50); Total Iron Binding Capacity 413 ug/dL (265-497); Transferrin 310 mg/dL (206-381)
[2019-01-01 17:49] LABS: Ferritin 18.2 ng/mL (11.1-264)
== END ==
PROVIDERS: Family Provider Family Medicine; PCP Family Medicine; Visit Provider Internal Medicine Hematology & Oncology
DX: D50.9 Iron deficiency anemia, unspecified (principal); N18.3 Chronic kidney disease, stage 3 (moderate)
CPT/HCPCS: 36415; 80053; 82728; 83540; 83550; 85025

== ENCOUNTER → 2019-07-27 14:20 | Oncology outpatient (ONC) | payer MEDICARE, OTHER, SELFPAY ==
[2018-06-30 15:56] VITALS: BP 138/79; PULSE 82; RESP 16; TEMP 37.4; O2SAT 98
--- NOTE | 2018-06-30 16:45 | P.CONONC_ITS ---
History of Present Illness - Data of Consult Patient: new to practice Consult date: 06/30/18 Primary Care Provider: Aamir Ndiaye MD - Consult Narrative Reason for consult: 68-year-old white female with iron deficiency anemia Narrative: Darline Bray is a 68 year old female with long-term chronic iron deficiency anemia of unknown etiology. She also has had a vitamin B12 deficiency anemia. She is now taking oral iron as well as oral vitamin B12. In the past, patient had colonoscopy as well as endoscopy according to patient more than 15 years ago. Patient recalled that a couple of years ago, she had Injectafer infusion and has felt a lot better after. Recently she was evaluated at the [facility] emergency room because of left hand and wrist cellulitis. The laboratory results performed at that time on June 16, 2018 showed that the white cell count 10.2, hemoglobin 9.0, hematocrit 28.4, MCV 71.9 , MCH 22.7, MCHC 31.5, RDW 19.7, and platelets 241. No iron panel or vitamin B12 panels were performed. Patient therefore was referred here for continuation of medical care of her known long-term iron deficiency anemia. The patient reports low energy level and cannot stay focused. She says she cannot get things done. She denies any pica symptoms. Patient also reports that she does not have any appetite. She denies any abdominal pain, denies any bright red blood per rectum or black stool. CC: Tia Fortune MD Home Medications and Allergies Home Medications Medication Instructions Recorded Confirmed Type ascorbic acid (vitamin C) 1,000 mg PO BID #0 02/17/18 06/30/18 History calcium carbonate 1,000 mg PO QDAY #0 02/17/18 06/30/18 History cholecalciferol (vitamin D3) 5,000 iu PO QDAY #0 02/17/18 06/30/18 History [Vitamin D3] ferrous sulfate [Iron (ferrous 325 mg PO QDAY #0 02/17/18 06/30/18 History sulfate)] lisinopril 20 mg PO QDAY #0 02/17/18 06/30/18 History sertraline 200 mg PO QDAY #0 02/17/18 06/30/18 History vitamin E 1,000 iu PO QDAY #0 02/17/18 06/16/18 History gabapentin 300 mg capsule 900 mg PO SEE INSTRUCTIONS #90 cap 04/21/18 06/30/18 Rx lamotrigine 25 mg PO QID 06/16/18 06/30/18 History metoprolol succinate 50 mg PO QPM 06/16/18 06/30/18 History topiramate 25 mg tablet 50 mg PO BID #360 tab 06/16/18 06/16/18 Rx erenumab-aooe 70 mg/mL 140 mg SUBCUT QMONTH #2 ml 06/17/18 06/30/18 Rx subcutaneous auto-injector naratriptan 2.5 mg tablet 2.5 mg PO .COMPLEX PRN #12 tab 06/17/18 Rx clindamycin HCl 300 mg PO QID 06/30/18 06/30/18 History mirtazapine 15 mg PO DAILY 06/30/18 06/30/18 History Allergies Allergy/AdvReac Type Severity Reaction Status Date / Time No Known Drug Allergies Allergy Verified 06/30/18 16:03 Medical History - Medical, Surgical, Family History Medical History: Medical History (Last Reviewed 06/17/18 @ 15:55 by Seamus Cartagena PA-C) Depression HTN (hypertension) Migraines PTSD (post-traumatic stress disorder) Surgical History: Surgical History (Last Reviewed 06/17/18 @ 15:55 by Seamus Cartagena PA-C) H/O foot surgery History of bilateral breast reduction surgery History of partial hysterectomy - Social History Smoking Status: Never smoker Substance Use Type: does not use Alcohol Intake: never Current Occupational Status: employed Review of Systems - Patient Self-Reported Symptoms SR Gastrointestinal issues: Nausea, Vomiting SR Genitourinary issues: Frequent urination SR Neuro issues: Headache All systems PM: reviewed and no additional remarkable complaints except as stated Exam Vital signs: Last Vital Signs Temp 99.3 F 06/30/18 15:56 Pulse 82 06/30/18 15:56 Resp 16 06/30/18 15:56 BP 138/79 H 06/30/18 15:56 Pulse Ox 98 06/30/18 15:56 - Constitutional positive no acute distress, positive cooperative - Routine HEENT Exam Head: Present: normocephalic, atraumatic Eye: Present: EOMI, PERRL, normal accommodation. Absent: conjunctival icterus ENT: Present: mucous membranes moist - Routine Neck Exam Present: supple, full ROM. Absent: JVD, carotid bruit - Routine Respiratory Exam Present: Clear to auscultation bilaterally. Absent: wheezes - Routine Cardiovascular Exam Present: RRR, S1, S2. Absent: murmur, gallop, rubs - Routine Abdominal Exam Present: soft, normoactive bowel sounds. Absent: tenderness, distended, mass Palpation/Percussion: Absent: hepatomegaly, splenomegaly - Routine Extremities Exam Present: full ROM. Absent: cyanosis, clubbing, edema - Routine Back/Spine Exam Back/Spine: Present: full ROM. Absent: CVA tenderness, paraspinal tenderness - Routine Neurological Exam Present: alert, oriented X3, CN II-XII intact. Absent: sensory deficit, motor deficit - Routine Psychiatric Exam Present: normal affect, normal thought process, cooperative, good insight, good judgment Results - Labs Reviewed and see documentation in HPI. Assessment and Plan (1) Iron deficiency anemia First, I reviewed the laboratory results from the emergency room. It showed microcytic hypochromic anemia consistent with iron deficiency. At present, patient is taking iron pills. Obviously the iron pill is not effective in correcting her iron deficiency anemia. I would advise her to stop the iron pills. For the treatment of the iron deficiency anemia, I would recommend intravenous iron infusion. Before proceeding with infusion, I will obtain blood samples to confirm the diagnosis of iron deficiency anemia. I will also check serum vitamin B12 and folic acid level given her past medical history of vitamin B12 deficiency in addition to iron panels and ferritin level. I will put in the order and get pre authorization for Injectafer 750 mg intravenously once every week for 2 more injections. Once preauthorized, we will schedule the visit for the infusion. Patient voiced understanding. Next I talked with the patient about the workup for iron deficiency anemia. I talked with the patient that since her previous colonoscopy was almost 15 years ago, it is long due for a repeat colonoscopy. I will refer the patient to gastrointestinal subspecialty for further evaluation for possible colonoscopy as well as possible upper endoscopy. I have tentatively scheduled the patient to come back in 2 months with to see me. I will repeat CBC, CMP, iron panels, and ferritin level,. 06/30/18 16:48
--- NOTE | 2018-07-01 12:26 | ONC.SCHED ---
I spoke with Teressa regarding Dr. Fortune's order for Injectafer. She will let him know that we don't typically administer Injectafer due to the cost and the research indicating iron sucrose is comparable in efficacy. Awaiting order for iron sucrose. I also spoke with her regarding his referal for colonscopy and possible upper endoscopy. Patient requested [facility], Teressa agreed based on Dr. Fortune's dictation that [facility] should be fine as opposed to GI specialist at [facility]. Will request consult with [facility].
--- NOTE | 2018-07-23 14:04 | ONC.SCHED ---
FABIOLA 07/23/18 JEYSON COY
[2018-07-25 14:52] VITALS: BP 112/60; PULSE 74; RESP 16; TEMP 36.8; O2SAT 93
[2018-07-25] MEDS: IRON SUCROSE 200 MG in SODIUM CHLORIDE 0.9% 100 ML 220 ML IV (15:12)
[2018-08-07 15:27] VITALS: BP 113/64; PULSE 66; RESP 18; TEMP 36.9; O2SAT 95
[2018-08-07] MEDS: IRON SUCROSE 200 MG in SODIUM CHLORIDE 0.9% 100 ML 220 ML IV (16:08)
[2018-08-15 15:46] VITALS: BP 155/75; PULSE 82; RESP 18; TEMP 36.8; O2SAT 98
[2018-08-15] MEDS: IRON SUCROSE 200 MG in SODIUM CHLORIDE 0.9% 100 ML 220 ML IV (15:49)
[2018-08-21] MEDS: IRON SUCROSE 200 MG in SODIUM CHLORIDE 0.9% 100 ML 220 ML IV (15:49)
[2018-08-21 15:51] VITALS: BP 138/73; PULSE 65; RESP 18; TEMP 37; O2SAT 94
[2018-09-01] MEDS: IRON SUCROSE 200 MG in SODIUM CHLORIDE 0.9% 100 ML 220 ML IV (15:30)
[2018-09-01 15:38] VITALS: BP 156/86; PULSE 61; RESP 18; TEMP 36.8; O2SAT 97
[2018-09-01 16:20] LABS: Add Manual Diff / Slide Review NO; Eosinophils Percent Auto 1.5 % (2-4); Hematocrit 33.9 % (36-46); Hemoglobin 10.6 g/dL (12.0-16.0); Lymphocytes Percent Auto 24.5 % (25-40); Mean Corpuscular HGB Conc 31.3 % (30-36); Mean Corpuscular Hemoglobin 24.5 PG (26-34); Mean Corpuscular Volume 78.3 fL (80-100); Monocytes Percent Auto 7.2 % (3-14); Neutrophils Absolute Auto 5700 /uL (3000-5900); Neutrophils Percent Auto 65.8 % (50-75); Platelet Count 256 X10^3/uL (150-400); Red Blood Cell Count 4.33 X10^6/uL (4.0-5.2); Red Cell Distribution Width 25.5 % (11.6-14.8); White Blood Cell Count 8.7 X10^3/uL (4.5-11.0)
[2018-09-01] MEDS: INFLUENZA VACCINE 0.5 ML SYRINGE IM (16:30)
[2018-09-01 16:53] LABS: Anisocytosis 2+; Microcytosis 1+; Ovalocytes 1+
[2018-09-01 17:47] LABS: Alanine Aminotransferase 19 IU/L (9-52); Albumin Globulin Ratio 1.3 (1.0-2.8); Alkaline Phosphatase 82 U/L (38-126); Aspartate Aminotransferase 31 IU/L (14-36); BUN Creatinine Ratio 12.9 (6-22); Bilirubin Total 0.4 mg/dL (0.2-1.3); Blood Urea Nitrogen 18 mg/dL (7-17); Calcium 8.6 mg/dL (8.4-10.2); Carbon Dioxide 24 mmol/L (22-32); Chloride 109 mmol/L (98-107); Estimated Glomerular Filt Rate 37.5 mL/min (>60); Globulin 3.2 g/dL (1.7-4.1); Glucose 114 mg/dL (80-110); Potassium 4.5 mmol/L (3.4-5.1); Sodium 144 mmol/L (137-145); Total Protein 7.2 g/dL (6.3-8.2)
[2018-09-01 17:48] LABS: Iron 46 ug/dL (37-170)
[2018-09-01 17:51] LABS: HEMOLYSIS 82 (0-50); HEMOLYSIS 84 (0-50)
[2018-09-01 17:59] LABS: Percent Iron Saturation 12 % (15-50); Total Iron Binding Capacity 372 ug/dL (265-497); Transferrin 314 mg/dL (206-381)
[2018-09-01 18:23] LABS: Ferritin 67.1 ng/mL (11.1-264)
--- NOTE | 2018-09-04 16:13 | ONC.PN ---
PN -Subjective Interval history: Chief Complaint 68 year old with iron deficiency anemia History of Present Illness Ms. Darline Bray is a 68 year old female with long-term chronic iron deficiency anemia of unknown etiology. She also has had a vitamin B12 deficiency anemia. She has been taking oral iron as well as oral vitamin B12. She had EGD and colonoscopy about in 2002 and was normal. She also has had Injectafer infusion in the past with excellent results and she feels a lot better after. In Jun, 2018, she was evaluated at ER of [facility] for left hand and wrist cellulitis. The laboratory results showed that the white cell count 10.2, hemoglobin 9.0, hematocrit 28.4, MCV 71.9, MCH 22.7, MCHC 31.5, RDW 19.7, and platelets 241. She was then referred to hematology for further evaluation. Interim Events: I saw the patient on 06/30/2018. Labs tests on 07/03/2018 showed ferritin 7.3, Fe 13, TIBC 444, Transferrin 3, B12 was 326 and Folate 2.9. Therefore she received intravenous Venofur (iron sucrose) 220 cc x 5 from 07/25/2018 until 09/01/2018. Repeat study on 09/01/2018 showed WBC 8.7, HGB 10.6, HCT 33.9, MCV 78.2, PLT 256, much improved compared to 06/16/2018. On 07/15/2018, Dr. Sree Mathew performed EGD and C-scope. The esophagus was unremarkable. She had a very short gastric remnant atached to what appeared to be a Mando-en-Y limb of small bowel. She was also found to have some sigmoid dierviculosis. A polyp was seen at 30 cm from the anal verge and was removed. Pathology showed superficial portion of colorectal mucosa with a lymphoid aggregate and otherwise no diagnostic abnormality. Follow up colonoscopy in 5 years was recommended. Despite the improve in iron study result, patient said she has not felt anything different. She is reporting freezing cold and has always been cold. Her thyroid function has never been tested in the past. She denies any abdominal pain, denies any bright red blood per rectum or black stool. - Patient Self-Reported Symptoms SR Gastrointestinal issues: Nausea, Vomiting SR Genitourinary issues: Frequent urination SR Neuro issues: Headache - Additional ROS All systems PM: reviewed and no additional remarkable complaints except as stated Home Medications and Allergies Home Medications Medication Instructions Recorded Confirmed Type ascorbic acid (vitamin C) 1,000 mg PO BID #0 02/17/18 08/28/18 History calcium carbonate 1,000 mg PO QDAY #0 02/17/18 08/28/18 History cholecalciferol (vitamin D3) 5,000 iu PO QDAY #0 02/17/18 08/28/18 History [Vitamin D3] ferrous sulfate [Iron (ferrous 325 mg PO QDAY #0 02/17/18 06/30/18 History sulfate)] lisinopril 20 mg PO QDAY #0 02/17/18 08/28/18 History sertraline 200 mg PO QDAY #0 02/17/18 09/04/18 History vitamin E 1,000 iu PO QDAY #0 02/17/18 08/28/18 History metoprolol succinate 50 mg PO QPM 06/16/18 08/28/18 History topiramate 25 mg tablet 50 mg PO BID #360 tab 06/16/18 08/28/18 Rx erenumab-aooe 70 mg/mL 140 mg SUBCUT QMONTH #2 ml 06/17/18 09/04/18 Rx subcutaneous auto-injector erenumab-aooe 70 mg/mL 140 mg SUBCUT QMONTH #2 ml 07/23/18 09/04/18 Rx subcutaneous auto-injector lamotrigine 100 mg tablet 100 mg PO DAILY #90 tab 07/29/18 08/28/18 Rx gabapentin 300 mg capsule 900 mg PO .COMPLEX #270 cap 08/28/18 Rx mirtazapine 30 mg tablet 30 mg PO BEDTIME #90 tab 08/28/18 Rx Allergies Allergy/AdvReac Type Severity Reaction Status Date / Time No Known Drug Allergies Allergy Verified 08/28/18 14:11 Exam Vital signs: Temp 98.5 F 09/04/18 16:22 Pulse 64 09/04/18 16:22 Resp 18 09/04/18 16:22 BP 133/76 09/04/18 16:22 Pulse Ox 98 09/04/18 16:22 ECOG 1 Narrative: Constitutional: Well developed, well nourished, not in any acute respiratory distress, average body habitus, well groomed, pleasant and cooperative. she was wrapping herself with a blanket due to feeling cold. HEENT: Normocephalic atraumatic. Extraocular muscle movement intact. Pupils are round, equal and reactive to light and accommodations. Anicteric sclera. No hearing difficulty; Oral mucus membrane moist and without ulcers. Neck: Supple, symmetrical, and tracheal midline; No palpable thyromegaly and no palpable lymph nodes. Respiratory: No use of accessory muscles. Clear to auscultation, and no wheezes or rales or rubs. Cardiovascular: Regular rate and rhythm, S1 and S2 normal, no murmurs gallops or rubs. No JVD. No pitting edema of lower extremities. Abdomen: Soft, nontender, non-distended, bowel sounds normal, no palpable organomegaly, no hernia, no palpable masses. Lower extremities: No palpable pedal edema. Lymphatic: no palpable lymph nodes in the neck, axillae, or groins. Musculoskeletal: normal gait and station, no clubbing, no cyanosis, no pitting edema. Skin: no rashes, no ulcers, no petechiae Neurological: Awake and alert and oriented x3. CN II-XII grossly intact. No focal motor or sensory deficit. Psychiatric: Good judgment, good insight, normal affect, normal thought process, cooperative, no depression, no anxiety. Results - Labs Laboratory Last Values WBC 8.7 X10^3/uL (4.5-11.0) 09/01/18 15:00 RBC 4.33 X10^6/uL (4.0-5.2) 09/01/18 15:00 Hgb 10.6 g/dL (12.0-16.0) L 09/01/18 15:00 Hct 33.9 % (36-46) L 09/01/18 15:00 MCV 78.3 fL (80-100) L 09/01/18 15:00 MCH 24.5 PG (26-34) L 09/01/18 15:00 MCHC 31.3 % (30-36) 09/01/18 15:00 RDW 25.5 % (11.6-14.8) H 09/01/18 15:00 Plt Count 256 X10^3/uL (150-400) 09/01/18 15:00 Neut % (Auto) 65.8 % (50-75) 09/01/18 15:00 Lymph % (Auto) 24.5 % (25-40) L 09/01/18 15:00 [place] % (Auto) 7.2 % (3-14) 09/01/18 15:00 Eos % (Auto) 1.5 % (2-4) L 09/01/18 15:00 Baso % (Auto) 1.0 % (0-2) 09/01/18 15:00 Neut # (Auto) 5700 /uL (8967-6025) 09/01/18 15:00 RBC Morphology See below 09/01/18 15:00 Anisocytosis 2+ H 09/01/18 15:00 Microcytosis 1+ H 09/01/18 15:00 Ovalocytes 1+ H 09/01/18 15:00 Sodium 144 mmol/L (137-145) 09/01/18 15:00 Potassium 4.5 mmol/L (3.4-5.1) 09/01/18 15:00 Chloride 109 mmol/L (98-107) H 09/01/18 15:00 Carbon Dioxide 24 mmol/L (22-32) 09/01/18 15:00 BUN 18 mg/dL (7-17) H 09/01/18 15:00 Creatinine 1.40 mg/dL (0.52-1.04) H 09/01/18 15:00 Estimated GFR 37.5 mL/min (>60) L 09/01/18 15:00 BUN/Creatinine Ratio 12.9 (6-22) 09/01/18 15:00 Glucose 114 mg/dL (80-110) H 09/01/18 15:00 Calcium 8.6 mg/dL (8.4-10.2) 09/01/18 15:00 Iron 46 ug/dL (37-170) 09/01/18 15:00 TIBC 372 ug/dL (265-497) 09/01/18 15:00 % Saturation 12 % (15-50) L 09/01/18 15:00 Transferrin 314 mg/dL (206-381) 09/01/18 15:00 Ferritin 67.1 ng/mL (11.1-264) 09/01/18 15:00 Total Bilirubin 0.4 mg/dL (0.2-1.3) 09/01/18 15:00 AST 31 IU/L (14-36) 09/01/18 15:00 ALT 19 IU/L (9-52) 09/01/18 15:00 Alkaline Phosphatase 82 U/L (38-126) 09/01/18 15:00 Total Protein 7.2 g/dL (6.3-8.2) 09/01/18 15:00 Albumin 4.0 g/dL (3.5-5.0) 09/01/18 15:00 Globulin 3.2 g/dL (1.7-4.1) 09/01/18 15:00 Albumin/Globulin Ratio 1.3 (1.0-2.8) 09/01/18 15:00 Assessment and Plan (1) Iron deficiency anemia I agree with Dr. Mathew that the iron deficiency anemia most likely is due to malabsortion as a result of previous gastric bypass surgery. Oral irons are apparently not effective. I recommend the patient stop taking oral iron once at all. I talked with the patient that I will monitor her iron status regularly and will supplement with intravenous iron on as-needed basis. Plan: 1. CBC, CMP, Fe panel and Ferritin, B12, Folic acid every 2 months, next due 11/01/2018 2. Venofer infusion on an as-needed basis 3. Stop oral iron pills. (2) Chronic kidney disease (CKD), stage III (moderate) The etiology of the chronic kidney damage is not clear at this moment. Patient related that she has a long history of urinary incontinence. She has a implanted device to control the urinary flow. Patient said that she would feel that the bladder is full, then she would press the button and release the urine. I explained to the patient that artificial controlling of the urinary flow is never better than our body itself. With chronic course, the kidney might be damaged by possibly hydronephrosis. Therefore I would proceed with ultrasound study of the kidney to evaluate. Plan: 1. US of kidney bilaterally 2. RTC after the results are available. (3) Sensation of feeling cold Patient has demonstrated on showed usual cold sensitivity. She is also complaining fatigue, sleepiness, and swelling. Anemia in itself could be part of the reasons, however hypothyroidism needs to be excluded. Therefore I will proceed with thyroid function test. Plan: 1. TSH, FT4, T3 2. RTC after results are available. (4) Status post gastric surgery Because of the surgery, absorption clearly will be affected. Patient will need continuous monitoring. Plan: (See above) Serial monitoring of iron, B12 and folic acid status.
[2018-09-04 16:22] VITALS: BP 133/76; PULSE 64; RESP 18; TEMP 36.9; O2SAT 98
--- NOTE | 2018-09-18 16:23 | ONC.PN ---
PN -Subjective Interval history: 68 year odl with iron deficiency anemia. Clinically patient reported that she still feel freezing cold. And there have been no changes compared to her previous visit. She presents here today for review of the thyroid function tests results. Patient completed 5 weekly infusions of the Venofer. Patient tolerated extremely well. History of Present Illness Ms. Darline Bray is a 68 year old female with long-term chronic iron deficiency anemia of unknown etiology. She also has had a vitamin B12 deficiency anemia. She has been taking oral iron as well as oral vitamin B12. She had EGD and colonoscopy about in 2002 and was normal. She also has had Injectafer infusion in the past with excellent results and she feels a lot better after. In Jun, 2018, she was evaluated at ER of [facility] for left hand and wrist cellulitis. The laboratory results showed that the white cell count 10.2, hemoglobin 9.0, hematocrit 28.4, MCV 71.9, MCH 22.7, MCHC 31.5, RDW 19.7, and platelets 241. She was then referred to hematology for further evaluation. I saw the patient on 06/30/2018. Labs tests on 07/03/2018 showed ferritin 7.3, Fe 13, TIBC 444, Transferrin 3, B12 was 326 and Folate 2.9. Therefore she received intravenous Venofur (iron sucrose) 220 cc x 5 from 07/25/2018 until 09/01/2018. Repeat study on 09/01/2018 showed WBC 8.7, HGB 10.6, HCT 33.9, MCV 78.2, PLT 256, much improved compared to 06/16/2018. On 07/15/2018, Dr. Sree Mathew performed EGD and C-scope. The esophagus was unremarkable. 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 She was also found to have some sigmoid diverticulosis. A polyp was seen at 30 cm from the anal verge and was removed. Pathology showed superficial portion of colorectal mucosa with a lymphoid aggregate and otherwise no diagnostic abnormality. Follow up colonoscopy in 5 years was recommended. - Patient Self-Reported Symptoms SR Constitution: Chills SR respiratory issues: Mucous SR Gastrointestinal issues: Nausea, Vomiting SR Genitourinary issues: Frequent urination SR Musculoskeletal issues: Joint pain or swelling, Muscle weakness, Muscle pain or cramps, Back or neck pain, Cold hands or feet, Difficulty walking SR Neuro issues: Headache - Additional ROS All systems PM: reviewed and no additional remarkable complaints except as stated Home Medications and Allergies Home Medications Medication Instructions Recorded Confirmed Type ascorbic acid (vitamin C) 1,000 mg PO BID #0 02/17/18 08/28/18 History calcium carbonate 1,000 mg PO QDAY #0 02/17/18 08/28/18 History cholecalciferol (vitamin D3) 5,000 iu PO QDAY #0 02/17/18 08/28/18 History [Vitamin D3] lisinopril 20 mg PO QDAY #0 02/17/18 08/28/18 History sertraline 200 mg PO QDAY #0 02/17/18 09/04/18 History vitamin E 1,000 iu PO QDAY #0 02/17/18 08/28/18 History metoprolol succinate 50 mg PO QPM 06/16/18 08/28/18 History erenumab-aooe 70 mg/mL 140 mg SUBCUT QMONTH #2 ml 06/17/18 09/04/18 Rx subcutaneous auto-injector erenumab-aooe 70 mg/mL 140 mg SUBCUT QMONTH #2 ml 07/23/18 09/04/18 Rx subcutaneous auto-injector lamotrigine 100 mg tablet 100 mg PO DAILY #90 tab 07/29/18 08/28/18 Rx mirtazapine 30 mg tablet 30 mg PO BEDTIME #90 tab 08/28/18 Rx topiramate 25 mg tablet 50 mg PO BID #360 tab 09/09/18 Rx gabapentin 900 mg PO DAILY 09/18/18 History Allergies Allergy/AdvReac Type Severity Reaction Status Date / Time No Known Drug Allergies Allergy Verified 08/28/18 14:11 Exam Vital signs: Temp 98.3 F 09/18/18 16:25 Pulse 74 09/18/18 16:25 Resp 18 09/18/18 16:25 BP 138/74 09/18/18 16:25 Pulse Ox 96 09/18/18 16:25 ECOG 1 Narrative: Constitutional: Well developed, well nourished, not in any acute respiratory distress, average body habitus, well groomed, pleasant and cooperative. she was again wrapping herself with a blanket due to feeling cold. HEENT: Normocephalic atraumatic. Extraocular muscle movement intact. Pupils are round, equal and reactive to light and accommodations. Anicteric sclera. No hearing difficulty; Oral mucus membrane moist and without ulcers. Neck: Supple, symmetrical, and tracheal midline; No palpable thyromegaly and no palpable lymph nodes. Respiratory: No use of accessory muscles. Clear to auscultation, and no wheezes or rales or rubs. Cardiovascular: Regular rate and rhythm, S1 and S2 normal, no murmurs gallops or rubs. No JVD. No pitting edema of lower extremities. Abdomen: Soft, nontender, non-distended, bowel sounds normal, no palpable organomegaly, no hernia, no palpable masses. Lower extremities: No palpable pedal edema. Lymphatic: no palpable lymph nodes in the neck, axillae, or groins. Musculoskeletal: normal gait and station, no clubbing, no cyanosis, no pitting edema. Skin: no rashes, no ulcers, no petechiae Neurological: Awake and alert and oriented x3. CN II-XII grossly intact. No focal motor or sensory deficit. Psychiatric: Good judgment, good insight, normal affect, normal thought process, cooperative, no depression, no anxiety. Results - Labs Laboratory Last Values WBC 8.7 X10^3/uL (4.5-11.0) 09/01/18 15:00 RBC 4.33 X10^6/uL (4.0-5.2) 09/01/18 15:00 Hgb 10.6 g/dL (12.0-16.0) L 09/01/18 15:00 Hct 33.9 % (36-46) L 09/01/18 15:00 MCV 78.3 fL (80-100) L 09/01/18 15:00 MCH 24.5 PG (26-34) L 09/01/18 15:00 MCHC 31.3 % (30-36) 09/01/18 15:00 RDW 25.5 % (11.6-14.8) H 09/01/18 15:00 Plt Count 256 X10^3/uL (150-400) 09/01/18 15:00 Neut % (Auto) 65.8 % (50-75) 09/01/18 15:00 Lymph % (Auto) 24.5 % (25-40) L 09/01/18 15:00 [place] % (Auto) 7.2 % (3-14) 09/01/18 15:00 Eos % (Auto) 1.5 % (2-4) L 09/01/18 15:00 Baso % (Auto) 1.0 % (0-2) 09/01/18 15:00 Neut # (Auto) 5700 /uL (3629-0375) 09/01/18 15:00 RBC Morphology See below 09/01/18 15:00 Anisocytosis 2+ H 09/01/18 15:00 Microcytosis 1+ H 09/01/18 15:00 Ovalocytes 1+ H 09/01/18 15:00 Sodium 144 mmol/L (137-145) 09/01/18 15:00 Potassium 4.5 mmol/L (3.4-5.1) 09/01/18 15:00 Chloride 109 mmol/L (98-107) H 09/01/18 15:00 Carbon Dioxide 24 mmol/L (22-32) 09/01/18 15:00 BUN 18 mg/dL (7-17) H 09/01/18 15:00 Creatinine 1.40 mg/dL (0.52-1.04) H 09/01/18 15:00 Estimated GFR 37.5 mL/min (>60) L 09/01/18 15:00 BUN/Creatinine Ratio 12.9 (6-22) 09/01/18 15:00 Glucose 114 mg/dL (80-110) H 09/01/18 15:00 Calcium 8.6 mg/dL (8.4-10.2) 09/01/18 15:00 Iron 46 ug/dL (37-170) 09/01/18 15:00 TIBC 372 ug/dL (265-497) 09/01/18 15:00 % Saturation 12 % (15-50) L 09/01/18 15:00 Transferrin 314 mg/dL (206-381) 09/01/18 15:00 Ferritin 67.1 ng/mL (11.1-264) 09/01/18 15:00 Total Bilirubin 0.4 mg/dL (0.2-1.3) 09/01/18 15:00 AST 31 IU/L (14-36) 09/01/18 15:00 ALT 19 IU/L (9-52) 09/01/18 15:00 Alkaline Phosphatase 82 U/L (38-126) 09/01/18 15:00 Total Protein 7.2 g/dL (6.3-8.2) 09/01/18 15:00 Albumin 4.0 g/dL (3.5-5.0) 09/01/18 15:00 Globulin 3.2 g/dL (1.7-4.1) 09/01/18 15:00 Albumin/Globulin Ratio 1.3 (1.0-2.8) 09/01/18 15:00 Assessment and Plan (1) Iron deficiency anemia Likely due to malabsortion as a result of previous gastric bypass surgery. Oral irons are apparently not effective. I recommend the patient stop taking oral iron once at all. I talked with the patient that I will monitor her iron status regularly and will supplement with intravenous iron on as-needed basis. Plan: 1. CBC, CMP, Fe panel and Ferritin, B12, Folic acid in one month 2. RTC after the blood test (2) Chronic kidney disease (CKD), stage III (moderate) The etiology of the chronic kidney damage is not clear at this moment. Patient has a long history of urinary incontinence. She has a implanted device to control the urinary flow. Ultrasound study of the kidney on 09/16/2018 showed no abnormal findings. Plan: Continue active surveillance. (3) Sensation of feeling cold Patient has demonstrated on showed usual cold sensitivity. She is also complaining fatigue, sleepiness, and swelling. Anemia in itself could be part of the reasons, however hypothyroidism needs to be excluded. Therefore I did proceed with thyroid function test. The thyroid functions were completely normal. I talked with the patient that the sensation of feeling cold most likely is related to the iron deficiency. With iron supplementation, I am hope for that she will make progress. Plan: Continue active surveillance. (4) Status post gastric surgery Because of the surgery, absorption clearly will be affected. Patient will need continuous monitoring. Plan: (See above) Serial monitoring of iron, B12 and folic acid status.
[2018-09-18 16:25] VITALS: BP 138/74; PULSE 74; RESP 18; TEMP 36.8; O2SAT 96
[2018-10-16 15:52] LABS: Add Manual Diff / Slide Review NO; Basophils Percent Auto 0.9 % (0-2); Eosinophils Percent Auto 1.7 % (2-4); Hematocrit 36.6 % (36-46); Hemoglobin 11.7 g/dL (12.0-16.0); Lymphocytes Percent Auto 29.9 % (25-40); Mean Corpuscular HGB Conc 31.9 % (30-36); Mean Corpuscular Hemoglobin 26.3 PG (26-34); Mean Corpuscular Volume 82.7 fL (80-100); Monocytes Percent Auto 7.6 % (3-14); Neutrophils Absolute Auto 4500 /uL (3000-5900); Neutrophils Percent Auto 59.9 % (50-75); Platelet Count 207 X10^3/uL (150-400); Red Blood Cell Count 4.43 X10^6/uL (4.0-5.2); White Blood Cell Count 7.5 X10^3/uL (4.5-11.0)
[2018-10-16 16:05] LABS: Alanine Aminotransferase 20 IU/L (9-52); Albumin 4.1 g/dL (3.5-5.0); Albumin Globulin Ratio 1.4 (1.0-2.8); Alkaline Phosphatase 92 U/L (38-126); Aspartate Aminotransferase 22 IU/L (14-36); BUN Creatinine Ratio 14.6 (6-22); Bilirubin Total 0.1 mg/dL (0.2-1.3); Blood Urea Nitrogen 19 mg/dL (7-17); Carbon Dioxide 24 mmol/L (22-32); Chloride 110 mmol/L (98-107); Estimated Glomerular Filt Rate 40.9 mL/min (>60); Glucose 82 mg/dL (80-110); HEMOLYSIS < 15 (0-50); Potassium 4.1 mmol/L (3.4-5.1); Sodium 145 mmol/L (137-145); Total Protein 7.1 g/dL (6.3-8.2)
[2018-10-16 16:09] LABS: Anisocytosis 2+; Poikilocytosis 1+
[2018-10-16 16:10] LABS: HEMOLYSIS < 15 (0-50); Iron 72 ug/dL (37-170)
[2018-10-16 16:21] LABS: Percent Iron Saturation 19 % (15-50); Total Iron Binding Capacity 372 ug/dL (265-497); Transferrin 317 mg/dL (206-381)
[2018-10-16 16:40] LABS: Ferritin 26.8 ng/mL (11.1-264)
[2018-10-16 17:11] LABS: Folate 3.6 ng/mL (2.76-20.0); Vitamin B12 320 pg/mL (239-931)
[2018-10-20 16:22] VITALS: BP 151/89; PULSE 55; RESP 18; TEMP 36.9; O2SAT 96
--- NOTE | 2018-10-20 16:28 | ONC.PN ---
PN -Subjective Interval history: 68 year odl with iron deficiency anemia. Patient completed 5 weekly infusions of the Venofer from 07/25/2018 through 09/01/2018. Patient tolerated extremely well. However she said she did not feel any different after the iron infusion. She presents here today for follow-up of the most recent laboratory tests performed on October the 04/30/2018. The lab tests showed that the hemoglobin level has improved from 10.6 to 11.7, hematocrit level has normalized from 33.9 to 36.6, and MCV also has normalized from 78.3 to 82.7. History of Present Illness Ms. Darline Bray is a 68 year old female with long-term chronic iron deficiency anemia of unknown etiology. She also has had a vitamin B12 deficiency anemia. She has been taking oral iron as well as oral vitamin B12. She had EGD and colonoscopy about in 2002 and was normal. She also has had Injectafer infusion in the past with excellent results and she feels a lot better after. In Jun, 2018, she was evaluated at of [facility] for left hand and wrist cellulitis. The laboratory results showed that the white cell count 10.2, hemoglobin 9.0, hematocrit 28.4, MCV 71.9, MCH 22.7, MCHC 31.5, RDW 19.7, and platelets 241. She was then referred to hematology for further evaluation. I saw the patient on 06/30/2018. Labs tests on 07/03/2018 showed ferritin 7.3, Fe 13, TIBC 444, Transferrin 3, B12 was 326 and Folate 2.9. Therefore she received intravenous Venofur (iron sucrose) 220 cc x 5 from 07/25/2018 until 09/01/2018. Repeat study on 09/01/2018 showed WBC 8.7, HGB 10.6, HCT 33.9, MCV 78.2, PLT 256, much improved compared to 06/16/2018. On 07/15/2018, Dr. rSee Matehw performed EGD and C-scope. The esophagus was unremarkable. 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 She was also found to have some sigmoid diverticulosis. A polyp was seen at 30 cm from the anal verge and was removed. Pathology showed superficial portion of colorectal mucosa with a lymphoid aggregate and otherwise no diagnostic abnormality. Follow up colonoscopy in 5 years was recommended. - Patient Self-Reported Symptoms SR Constitution: Chills SR respiratory issues: Mucous SR Gastrointestinal issues: Nausea, Vomiting SR Genitourinary issues: Frequent urination SR Musculoskeletal issues: Joint pain or swelling, Muscle weakness, Muscle pain or cramps, Back or neck pain, Cold hands or feet, Difficulty walking SR Neuro issues: Headache - Additional ROS All systems PM: reviewed and no additional remarkable complaints except as stated Home Medications and Allergies Home Medications Medication Instructions Recorded Confirmed Type ascorbic acid (vitamin C) 1,000 mg PO BID #0 02/17/18 08/28/18 History calcium carbonate 1,000 mg PO QDAY #0 02/17/18 08/28/18 History cholecalciferol (vitamin D3) 5,000 iu PO QDAY #0 02/17/18 08/28/18 History [Vitamin D3] lisinopril 20 mg PO QDAY #0 02/17/18 08/28/18 History sertraline 200 mg PO QDAY #0 02/17/18 09/04/18 History vitamin E 1,000 iu PO QDAY #0 02/17/18 08/28/18 History metoprolol succinate 50 mg PO QPM 06/16/18 08/28/18 History erenumab-aooe 70 mg/mL 140 mg SUBCUT QMONTH #2 ml 06/17/18 09/04/18 Rx subcutaneous auto-injector erenumab-aooe 70 mg/mL 140 mg SUBCUT QMONTH #2 ml 07/23/18 09/04/18 Rx subcutaneous auto-injector lamotrigine 100 mg tablet 100 mg PO DAILY #90 tab 07/29/18 08/28/18 Rx mirtazapine 30 mg tablet 30 mg PO BEDTIME #90 tab 08/28/18 Rx topiramate 25 mg tablet 50 mg PO BID #360 tab 09/09/18 Rx gabapentin 900 mg PO DAILY 09/18/18 History atorvastatin 40 mg tablet 40 mg PO BEDTIME #30 tab 09/22/18 Rx trazodone 100 mg tablet 100 mg PO DAILY PRN #30 tab 10/06/18 Rx naratriptan 2.5 mg PO Q4H PRN 10/20/18 10/20/18 History Allergies Allergy/AdvReac Type Severity Reaction Status Date / Time No Known Drug Allergies Allergy Verified 08/28/18 14:11 Exam Vital signs: Last Vital Signs Temp 98.5 F 10/20/18 16:22 Pulse 55 L 10/20/18 16:22 Resp 18 10/20/18 16:22 BP 151/89 H 10/20/18 16:22 Pulse Ox 96 10/20/18 16:22 ECOG 1 Narrative: Constitutional: Well developed, well nourished, not in any acute respiratory distress, average body habitus, well groomed, pleasant and cooperative. she was again wrapping herself with a blanket due to feeling cold. HEENT: Normocephalic atraumatic. Extraocular muscle movement intact. Pupils are round, equal and reactive to light and accommodations. Anicteric sclera. No hearing difficulty; Oral mucus membrane moist and without ulcers. Neck: Supple, symmetrical, and tracheal midline; No palpable thyromegaly and no palpable lymph nodes. Respiratory: No use of accessory muscles. Clear to auscultation, and no wheezes or rales or rubs. Cardiovascular: Regular rate and rhythm, S1 and S2 normal, no murmurs gallops or rubs. No JVD. No pitting edema of lower extremities. Abdomen: Soft, nontender, non-distended, bowel sounds normal, no palpable organomegaly, no hernia, no palpable masses. Lower extremities: No palpable pedal edema. Lymphatic: no palpable lymph nodes in the neck, axillae, or groins. Musculoskeletal: normal gait and station, no clubbing, no cyanosis, no pitting edema. Skin: no rashes, no ulcers, no petechiae Neurological: Awake and alert and oriented x3. CN II-XII grossly intact. No focal motor or sensory deficit. Psychiatric: Good judgment, good insight, normal affect, normal thought process, cooperative, no depression, no anxiety. Results - Labs Laboratory Last Values WBC 7.5 X10^3/uL (4.5-11.0) 10/16/18 15:41 RBC 4.43 X10^6/uL (4.0-5.2) 10/16/18 15:41 Hgb 11.7 g/dL (12.0-16.0) L 10/16/18 15:41 Hct 36.6 % (36-46) 10/16/18 15:41 MCV 82.7 fL (80-100) 10/16/18 15:41 MCH 26.3 PG (26-34) 10/16/18 15:41 MCHC 31.9 % (30-36) 10/16/18 15:41 RDW 23.0 % (11.6-14.8) H 10/16/18 15:41 Plt Count 207 X10^3/uL (150-400) 10/16/18 15:41 Neut % (Auto) 59.9 % (50-75) 10/16/18 15:41 Lymph % (Auto) 29.9 % (25-40) 10/16/18 15:41 [place] % (Auto) 7.6 % (3-14) 10/16/18 15:41 Eos % (Auto) 1.7 % (2-4) L 10/16/18 15:41 Baso % (Auto) 0.9 % (0-2) 10/16/18 15:41 Neut # (Auto) 4500 /uL (9137-5234) 10/16/18 15:41 RBC Morphology Not Reportable 10/16/18 15:41 Poikilocytosis 1+ H 10/16/18 15:41 Anisocytosis 2+ H 10/16/18 15:41 Microcytosis 1+ H 09/01/18 15:00 Ovalocytes 1+ H 09/01/18 15:00 Sodium 145 mmol/L (137-145) 10/16/18 15:41 Potassium 4.1 mmol/L (3.4-5.1) 10/16/18 15:41 Chloride 110 mmol/L (98-107) H 10/16/18 15:41 Carbon Dioxide 24 mmol/L (22-32) 10/16/18 15:41 BUN 19 mg/dL (7-17) H 10/16/18 15:41 Creatinine 1.30 mg/dL (0.52-1.04) H 10/16/18 15:41 Estimated GFR 40.9 mL/min (>60) L 10/16/18 15:41 BUN/Creatinine Ratio 14.6 (6-22) 10/16/18 15:41 Glucose 82 mg/dL (80-110) 10/16/18 15:41 Calcium 9.0 mg/dL (8.4-10.2) 10/16/18 15:41 Iron 72 ug/dL (37-170) 10/16/18 15:41 TIBC 372 ug/dL (265-497) 10/16/18 15:41 % Saturation 19 % (15-50) 10/16/18 15:41 Transferrin 317 mg/dL (206-381) 10/16/18 15:41 Ferritin 26.8 ng/mL (11.1-264) 10/16/18 15:41 Total Bilirubin 0.1 mg/dL (0.2-1.3) L 10/16/18 15:41 AST 22 IU/L (14-36) 10/16/18 15:41 ALT 20 IU/L (9-52) 10/16/18 15:41 Alkaline Phosphatase 92 U/L (38-126) 10/16/18 15:41 Total Protein 7.1 g/dL (6.3-8.2) 10/16/18 15:41 Albumin 4.1 g/dL (3.5-5.0) 10/16/18 15:41 Globulin 3.0 g/dL (1.7-4.1) 10/16/18 15:41 Albumin/Globulin Ratio 1.4 (1.0-2.8) 10/16/18 15:41 Vitamin B12 320 pg/mL (239-931) 10/16/18 15:41 Folate 3.6 ng/mL (2.76-20.0) 10/16/18 15:41 Assessment and Plan (1) Iron deficiency anemia Assessment: I reviewed the laboratory tests with the patient. The lab tests showed that her iron deficiency anemia has improved significantly. However clinically patient complains that her symptoms of fatigue has not improved. I talked with the patient that it indicates probably there are other issues or questions that are contributing to the symptoms. I advised patient to follow up with her primary care provider for further evaluation. As far as iron deficiency anemia is concerned, I will continue monitor her iron status every month and will give her intravenous iron on an as needed basis. Plan: 1. CBC, CMP, Fe panel and Ferritin, B12, Folic acid in one month 2. RTC after the blood test (2) Chronic kidney disease (CKD), stage III (moderate) Assessment: The etiology of the chronic kidney damage is not clear at this moment. Patient has a long history of urinary incontinence. She has a implanted device to control the urinary flow. Ultrasound study of the kidney on 09/16/2018 showed no abnormal findings. Plan: Continue active surveillance. (3) Status post gastric surgery Assessment: Because of the surgery, absorption clearly will be affected. Patient will need continuous monitoring. Plan: (See above) Serial monitoring of iron, B12 and folic acid status.
--- NOTE | 2018-10-20 16:33 | P.PNONC_ITS ---
PN -Subjective Interval history: 68 year odl with iron deficiency anemia. Patient completed 5 weekly infusions of the Venofer from 07/25/2018 through 09/01/2018. Patient tolerated extremely well. However she said she did not feel any different after the iron infusion. She presents here today for follow-up of the most recent laboratory tests performed on October the 04/30/2018. The lab tests showed that the hemoglobin level has improved from 10.6 to 11.7, hematocrit level has normalized from 33.9 to 36.6, and MCV also has normalized from 78.3 to 82.7. History of Present Illness Ms. Darline Bray is a 68 year old female with long-term chronic iron deficiency anemia of unknown etiology. She also has had a vitamin B12 deficiency anemia. She has been taking oral iron as well as oral vitamin B12. She had EGD and colonoscopy about in 2002 and was normal. She also has had Injectafer infusion in the past with excellent results and she feels a lot better after. In Jun, 2018, she was evaluated at of [facility] for left hand and wrist cellulitis. The laboratory results showed that the white cell count 10.2, hemoglobin 9.0, hematocrit 28.4, MCV 71.9, MCH 22.7, MCHC 31.5 , RDW 19.7, and platelets 241. She was then referred to hematology for further evaluation. I saw the patient on 06/30/2018. Labs tests on 07/03/2018 showed ferritin 7.3, Fe 13, TIBC 444, Transferrin 3, B12 was 326 and Folate 2.9. Therefore she received intravenous Venofur (iron sucrose) 220 cc x 5 from 07/25/2018 until . Repeat study on 09/01/2018 showed WBC 8.7, HGB 10.6, HCT 33.9, MCV 78.2 , PLT 256, much improved compared to 06/16/2018. On 07/15/2018, Dr. Sree Mathew performed EGD and C-scope. The esophagus was unremarkable. 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 She was also found to have some sigmoid diverticulosis. A polyp was seen at 30 cm from the anal verge and was removed. Pathology showed superficial portion of colorectal mucosa with a lymphoid aggregate and otherwise no diagnostic abnormality. Follow up colonoscopy in 5 years was recommended. - Patient Self-Reported Symptoms SR Constitution: Chills SR respiratory issues: Mucous SR Gastrointestinal issues: Nausea, Vomiting SR Genitourinary issues: Frequent urination SR Musculoskeletal issues: Joint pain or swelling, Muscle weakness, Muscle pain or cramps, Back or neck pain, Cold hands or feet, Difficulty walking SR Neuro issues: Headache - Additional ROS All systems PM: reviewed and no additional remarkable complaints except as stated Home Medications and Allergies Home Medications Medication Instructions Recorded Confirmed Type ascorbic acid (vitamin C) 1,000 mg PO BID #0 02/17/18 08/28/18 History calcium carbonate 1,000 mg PO QDAY #0 02/17/18 08/28/18 History cholecalciferol (vitamin D3) 5,000 iu PO QDAY #0 02/17/18 08/28/18 History [Vitamin D3] lisinopril 20 mg PO QDAY #0 02/17/18 08/28/18 History sertraline 200 mg PO QDAY #0 02/17/18 09/04/18 History vitamin E 1,000 iu PO QDAY #0 02/17/18 08/28/18 History metoprolol succinate 50 mg PO QPM 06/16/18 08/28/18 History erenumab-aooe 70 mg/mL 140 mg SUBCUT QMONTH #2 ml 06/17/18 09/04/18 Rx subcutaneous auto-injector erenumab-aooe 70 mg/mL 140 mg SUBCUT QMONTH #2 ml 07/23/18 09/04/18 Rx subcutaneous auto-injector lamotrigine 100 mg tablet 100 mg PO DAILY #90 tab 07/29/18 08/28/18 Rx mirtazapine 30 mg tablet 30 mg PO BEDTIME #90 tab 08/28/18 Rx topiramate 25 mg tablet 50 mg PO BID #360 tab 09/09/18 Rx gabapentin 900 mg PO DAILY 09/18/18 History atorvastatin 40 mg tablet 40 mg PO BEDTIME #30 tab 09/22/18 Rx trazodone 100 mg tablet 100 mg PO DAILY PRN #30 tab 10/06/18 Rx naratriptan 2.5 mg PO Q4H PRN 10/20/18 10/20/18 History Allergies Allergy/AdvReac Type Severity Reaction Status Date / Time No Known Drug Allergies Allergy Verified 08/28/18 14:11 Exam Vital signs: Last Vital Signs Temp 98.5 F 10/20/18 16:22 Pulse 55 L 10/20/18 16:22 Resp 18 10/20/18 16:22 BP 151/89 H 10/20/18 16:22 Pulse Ox 96 10/20/18 16:22 ECOG 1 Narrative: Constitutional: Well developed, well nourished, not in any acute respiratory distress, average body habitus, well groomed, pleasant and cooperative. she was again wrapping herself with a blanket due to feeling cold. HEENT: Normocephalic atraumatic. Extraocular muscle movement intact. Pupils are round, equal and reactive to light and accommodations. Anicteric sclera. No hearing difficulty; Oral mucus membrane moist and without ulcers. Neck: Supple, symmetrical, and tracheal midline; No palpable thyromegaly and no palpable lymph nodes. Respiratory: No use of accessory muscles. Clear to auscultation, and no wheezes or rales or rubs. Cardiovascular: Regular rate and rhythm, S1 and S2 normal, no murmurs gallops or rubs. No JVD. No pitting edema of lower extremities. Abdomen: Soft, nontender, non-distended, bowel sounds normal, no palpable organomegaly, no hernia, no palpable masses. Lower extremities: No palpable pedal edema. Lymphatic: no palpable lymph nodes in the neck, axillae, or groins. Musculoskeletal: normal gait and station, no clubbing, no cyanosis, no pitting edema. Skin: no rashes, no ulcers, no petechiae Neurological: Awake and alert and oriented x3. CN II-XII grossly intact. No focal motor or sensory deficit. Psychiatric: Good judgment, good insight, normal affect, normal thought process , cooperative, no depression, no anxiety. Results - Labs Laboratory Last Values WBC 7.5 X10^3/uL (4.5-11.0) 10/16/18 15:41 RBC 4.43 X10^6/uL (4.0-5.2) 10/16/18 15:41 Hgb 11.7 g/dL (12.0-16.0) L 10/16/18 15:41 Hct 36.6 % (36-46) 10/16/18 15:41 MCV 82.7 fL (80-100) 10/16/18 15:41 MCH 26.3 PG (26-34) 10/16/18 15:41 MCHC 31.9 % (30-36) 10/16/18 15:41 RDW 23.0 % (11.6-14.8) H 10/16/18 15:41 Plt Count 207 X10^3/uL (150-400) 10/16/18 15:41 Neut % (Auto) 59.9 % (50-75) 10/16/18 15:41 Lymph % (Auto) 29.9 % (25-40) 10/16/18 15:41 [place] % (Auto) 7.6 % (3-14) 10/16/18 15:41 Eos % (Auto) 1.7 % (2-4) L 10/16/18 15:41 Baso % (Auto) 0.9 % (0-2) 10/16/18 15:41 Neut # (Auto) 4500 /uL (7812-9820) 10/16/18 15:41 RBC Morphology Not Reportable 10/16/18 15:41 Poikilocytosis 1+ H 10/16/18 15:41 Anisocytosis 2+ H 10/16/18 15:41 Microcytosis 1+ H 09/01/18 15:00 Ovalocytes 1+ H 09/01/18 15:00 Sodium 145 mmol/L (137-145) 10/16/18 15:41 Potassium 4.1 mmol/L (3.4-5.1) 10/16/18 15:41 Chloride 110 mmol/L (98-107) H 10/16/18 15:41 Carbon Dioxide 24 mmol/L (22-32) 10/16/18 15:41 BUN 19 mg/dL (7-17) H 10/16/18 15:41 Creatinine 1.30 mg/dL (0.52-1.04) H 10/16/18 15:41 Estimated GFR 40.9 mL/min (>60) L 10/16/18 15:41 BUN/Creatinine Ratio 14.6 (6-22) 10/16/18 15:41 Glucose 82 mg/dL (80-110) 10/16/18 15:41 Calcium 9.0 mg/dL (8.4-10.2) 10/16/18 15:41 Iron 72 ug/dL (37-170) 10/16/18 15:41 TIBC 372 ug/dL (265-497) 10/16/18 15:41 % Saturation 19 % (15-50) 10/16/18 15:41 Transferrin 317 mg/dL (206-381) 10/16/18 15:41 Ferritin 26.8 ng/mL (11.1-264) 10/16/18 15:41 Total Bilirubin 0.1 mg/dL (0.2-1.3) L 10/16/18 15:41 AST 22 IU/L (14-36) 10/16/18 15:41 ALT 20 IU/L (9-52) 10/16/18 15:41 Alkaline Phosphatase 92 U/L (38-126) 10/16/18 15:41 Total Protein 7.1 g/dL (6.3-8.2) 10/16/18 15:41 Albumin 4.1 g/dL (3.5-5.0) 10/16/18 15:41 Globulin 3.0 g/dL (1.7-4.1) 10/16/18 15:41 Albumin/Globulin Ratio 1.4 (1.0-2.8) 10/16/18 15:41 Vitamin B12 320 pg/mL (239-931) 10/16/18 15:41 Folate 3.6 ng/mL (2.76-20.0) 10/16/18 15:41 Assessment and Plan (1) Iron deficiency anemia Assessment: I reviewed the laboratory tests with the patient. The lab tests showed that her iron deficiency anemia has improved significantly. However clinically patient complains that her symptoms of fatigue has not improved. I talked with the patient that it indicates probably there are other issues or questions that are contributing to the symptoms. I advised patient to follow up with her primary care provider for further evaluation. As far as iron deficiency anemia is concerned, I will continue monitor her iron status every month and will give her intravenous iron on an as needed basis. Plan: 1. CBC, CMP, Fe panel and Ferritin, B12, Folic acid in one month 2. RTC after the blood test (2) Chronic kidney disease (CKD), stage III (moderate) Assessment: The etiology of the chronic kidney damage is not clear at this moment. Patient has a long history of urinary incontinence. She has a implanted device to control the urinary flow. Ultrasound study of the kidney on 09/16/2018 showed no abnormal findings. Plan: Continue active surveillance. (3) Status post gastric surgery Assessment: Because of the surgery, absorption clearly will be affected. Patient will need continuous monitoring. Plan: (See above) Serial monitoring of iron, B12 and folic acid status.
--- NOTE | 2018-11-24 16:06 | ONC.PN ---
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 Her recent iron infusion was Venofer from 07/25/2018 through 09/01/2018. She presents today for scheduled follow up visit. Clinically, she reports that nothing has changes, and denies any new signs or symptoms. She had her lab tests at [facility] on 11/21/2018 that showed Fe 60, TIBC 419, FeSat 14%, ferritin 42.5, B12 232, Folate 5.14, WBC 8.1, HGB 12.8, HCT 40, MCV 86.2, PLT 207. History of Present Illness Ms. Darline Bray is a 68 year old female with long-term chronic iron deficiency anemia of unknown etiology. She also has had a vitamin B12 deficiency anemia. She has been taking oral iron as well as oral vitamin B12. She had EGD and colonoscopy about in 2002 and was normal. She also has had Injectafer infusion in the past with excellent results and she feels a lot better after. In Jun, 2018, she was evaluated at [facility] for left hand and wrist cellulitis. The laboratory results showed that the white cell count 10.2, hemoglobin 9.0, hematocrit 28.4, MCV 71.9, MCH 22.7, MCHC 31.5, RDW 19.7, and platelets 241. She was then referred to hematology for further evaluation. I saw the patient on 06/30/2018. Labs tests on 07/03/2018 showed ferritin 7.3, Fe 13, TIBC 444, Transferrin 3, B12 was 326 and Folate 2.9. Therefore she received intravenous Venofur (iron sucrose) 220 cc x 5 from 07/25/2018 until 09/01/2018. Repeat study on 09/01/2018 showed WBC 8.7, HGB 10.6, HCT 33.9, MCV 78.2, PLT 256, much improved compared to 06/16/2018. On 07/15/2018, Dr. Sree Mathew performed EGD and C-scope. The esophagus was unremarkable. 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 She was also found to have some sigmoid diverticulosis. A polyp was seen at 30 cm from the anal verge and was removed. Pathology showed superficial portion of colorectal mucosa with a lymphoid aggregate and otherwise no diagnostic abnormality. Follow up colonoscopy in 5 years was recommended. - Patient Self-Reported Symptoms SR Genitourinary issues: Frequent urination SR Musculoskeletal issues: Joint pain or swelling, Muscle weakness, Muscle pain or cramps, Back or neck pain, Cold hands or feet, Difficulty walking - Additional ROS All systems PM: reviewed and no additional remarkable complaints except as stated Home Medications and Allergies Home Medications Medication Instructions Recorded Confirmed Type ascorbic acid (vitamin C) 1,000 mg PO BID #0 02/17/18 11/24/18 History calcium carbonate 1,000 mg PO QDAY #0 02/17/18 11/24/18 History cholecalciferol (vitamin D3) 5,000 iu PO QDAY #0 02/17/18 11/24/18 History [Vitamin D3] lisinopril 20 mg PO QDAY #0 02/17/18 11/24/18 History sertraline 200 mg PO QDAY #0 02/17/18 11/24/18 History vitamin E 1,000 iu PO QDAY #0 02/17/18 11/24/18 History metoprolol succinate 50 mg PO QPM 06/16/18 11/24/18 History lamotrigine 100 mg tablet 100 mg PO DAILY #90 tab 07/29/18 11/24/18 Rx topiramate 25 mg tablet 50 mg PO BID #360 tab 09/09/18 11/24/18 Rx gabapentin 900 mg PO DAILY 09/18/18 11/24/18 History atorvastatin 40 mg tablet 40 mg PO BEDTIME #30 tab 09/22/18 11/24/18 Rx naratriptan 2.5 mg PO Q4H PRN 10/20/18 11/24/18 History fremanezumab-vfrm 225 mg/1.5 mL 675 mg SUBCUT [id number] #4.5 ml 10/22/18 11/24/18 Rx subcutaneous syringe mirtazapine 30 mg tablet 30 mg PO BEDTIME #90 tab 10/22/18 11/24/18 Rx Allergies Allergy/AdvReac Type Severity Reaction Status Date / Time No Known Drug Allergies Allergy Verified 10/22/18 14:49 Exam Vital signs: Last Vital Signs Temp 97.8 F 11/24/18 16:17 Pulse 71 11/24/18 16:17 Resp 19 11/24/18 16:17 BP 115/50 L 11/24/18 16:17 Pulse Ox 98 11/24/18 16:17 ECOG 1 Narrative: Constitutional: Well developed, well nourished, not in any acute respiratory distress, average body habitus, well groomed, pleasant and cooperative. HEENT: Normocephalic atraumatic. Extraocular muscle movement intact. Pupils are round, equal and reactive to light and accommodations. Anicteric sclera. No hearing difficulty; Oral mucus membrane moist and without ulcers. Neck: Supple, symmetrical, and tracheal midline; No palpable thyromegaly and no palpable lymph nodes. Respiratory: No use of accessory muscles. Clear to auscultation, and no wheezes or rales or rubs. Cardiovascular: Regular rate and rhythm, S1 and S2 normal, no murmurs gallops or rubs. No JVD. No pitting edema of lower extremities. Abdomen: Soft, nontender, non-distended, bowel sounds normal, no palpable organomegaly, no hernia, no palpable masses. Lower extremities: No palpable pedal edema. Lymphatic: no palpable lymph nodes in the neck, axillae, or groins. Musculoskeletal: normal gait and station, no clubbing, no cyanosis, no pitting edema. Skin: no rashes, no ulcers, no petechiae Neurological: Awake and alert and oriented x3. CN II-XII grossly intact. No focal motor or sensory deficit. Psychiatric: Good judgment, good insight, normal affect, normal thought process, cooperative, no depression, no anxiety. Results - Labs Laboratory Last Values WBC 7.5 X10^3/uL (4.5-11.0) 10/16/18 15:41 RBC 4.43 X10^6/uL (4.0-5.2) 10/16/18 15:41 Hgb 11.7 g/dL (12.0-16.0) L 10/16/18 15:41 Hct 36.6 % (36-46) 10/16/18 15:41 MCV 82.7 fL (80-100) 10/16/18 15:41 MCH 26.3 PG (26-34) 10/16/18 15:41 MCHC 31.9 % (30-36) 10/16/18 15:41 RDW 23.0 % (11.6-14.8) H 10/16/18 15:41 Plt Count 207 X10^3/uL (150-400) 10/16/18 15:41 Neut % (Auto) 59.9 % (50-75) 10/16/18 15:41 Lymph % (Auto) 29.9 % (25-40) 10/16/18 15:41 [place] % (Auto) 7.6 % (3-14) 10/16/18 15:41 Eos % (Auto) 1.7 % (2-4) L 10/16/18 15:41 Baso % (Auto) 0.9 % (0-2) 10/16/18 15:41 Neut # (Auto) 4500 /uL (9520-4378) 10/16/18 15:41 RBC Morphology Not Reportable 10/16/18 15:41 Poikilocytosis 1+ H 10/16/18 15:41 Anisocytosis 2+ H 10/16/18 15:41 Microcytosis 1+ H 09/01/18 15:00 Ovalocytes 1+ H 09/01/18 15:00 Sodium 145 mmol/L (137-145) 10/16/18 15:41 Potassium 4.1 mmol/L (3.4-5.1) 10/16/18 15:41 Chloride 110 mmol/L (98-107) H 10/16/18 15:41 Carbon Dioxide 24 mmol/L (22-32) 10/16/18 15:41 BUN 19 mg/dL (7-17) H 10/16/18 15:41 Creatinine 1.30 mg/dL (0.52-1.04) H 10/16/18 15:41 Estimated GFR 40.9 mL/min (>60) L 10/16/18 15:41 BUN/Creatinine Ratio 14.6 (6-22) 10/16/18 15:41 Glucose 82 mg/dL (80-110) 10/16/18 15:41 Calcium 9.0 mg/dL (8.4-10.2) 10/16/18 15:41 Iron 72 ug/dL (37-170) 10/16/18 15:41 TIBC 372 ug/dL (265-497) 10/16/18 15:41 % Saturation 19 % (15-50) 10/16/18 15:41 Transferrin 317 mg/dL (206-381) 10/16/18 15:41 Ferritin 26.8 ng/mL (11.1-264) 10/16/18 15:41 Total Bilirubin 0.1 mg/dL (0.2-1.3) L 10/16/18 15:41 AST 22 IU/L (14-36) 10/16/18 15:41 ALT 20 IU/L (9-52) 10/16/18 15:41 Alkaline Phosphatase 92 U/L (38-126) 10/16/18 15:41 Total Protein 7.1 g/dL (6.3-8.2) 10/16/18 15:41 Albumin 4.1 g/dL (3.5-5.0) 10/16/18 15:41 Globulin 3.0 g/dL (1.7-4.1) 10/16/18 15:41 Albumin/Globulin Ratio 1.4 (1.0-2.8) 10/16/18 15:41 Vitamin B12 320 pg/mL (239-931) 10/16/18 15:41 Folate 3.6 ng/mL (2.76-20.0) 10/16/18 15:41 Assessment and Plan (1) Folic acid deficiency Assessment: Patient said that he has been taking folic acid 3 mg once a day for the past 2 years. However the most recent serum folic acid level was below the lower limit of normal. Apparently patient is not absorbing the oral folic acid. This is due to the history of gastric surgery. I talked with the patient that I will try to use subcutaneous folic acid. We will monitor the level of folic acid in the serum to determine the dosage. Patient voiced understanding. Plan: 1. Folic acid 1 mg subQ x1 (Patient wanted to ask her PCP at [facility] to see if she can get injection there. If not, she will come back to our clinic for injection) 2. Repeat serum Folic acid and B12 levels in 2 weeks at [facility] (standing order given) 3. RTC in 2 weeks to review the results. (2) Iron deficiency anemia Assessment and Plan: I reviewed the laboratory tests with the patient. The lab tests showed that her iron storage is beginning to decrease, but her CBC is still within the normal range. I will continue monitor her iron status and decide on when to given iron infusion. Patient's most recent lab showed folic acid deficiency (see above). (3) Chronic kidney disease (CKD), stage III (moderate) Assessment and Plan: The etiology of the chronic kidney damage is not clear at this moment. Patient has a long history of urinary incontinence. She has a implanted device to control the urinary flow. Ultrasound study of the kidney on 09/16/2018 showed no abnormal findings. Continue active surveillance. (4) Status post gastric surgery Assessment and Plan: Because of the surgery, absorption clearly will be affected. Patient will need continuous monitoring. Serial monitoring of iron, B12 and folic acid status.
--- NOTE | 2018-11-24 16:14 | P.PNONC_ITS ---
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 Her recent iron infusion was Venofer from 07/25/2018 through 09/01/2018. She presents today for scheduled follow up visit. Clinically, she reports that nothing has changes, and denies any new signs or symptoms. She had her lab tests at [facility] on 11/21/2018 that showed Fe 60, TIBC 419 , FeSat 14%, ferritin 42.5, B12 232, Folate 5.14, WBC 8.1, HGB 12.8, HCT 40, MCV 86.2, PLT 207. History of Present Illness Ms. Darline Bray is a 68 year old female with long-term chronic iron deficiency anemia of unknown etiology. She also has had a vitamin B12 deficiency anemia. She has been taking oral iron as well as oral vitamin B12. She had EGD and colonoscopy about in 2002 and was normal. She also has had Injectafer infusion in the past with excellent results and she feels a lot better after. In Jun, 2018, she was evaluated at [facility] for left hand and wrist cellulitis. The laboratory results showed that the white cell count 10.2, hemoglobin 9.0, hematocrit 28.4, MCV 71.9, MCH 22.7, MCHC 31.5 , RDW 19.7, and platelets 241. She was then referred to hematology for further evaluation. I saw the patient on 06/30/2018. Labs tests on 07/03/2018 showed ferritin 7.3, Fe 13, TIBC 444, Transferrin 3, B12 was 326 and Folate 2.9. Therefore she received intravenous Venofur (iron sucrose) 220 cc x 5 from 07/25/2018 until . Repeat study on 09/01/2018 showed WBC 8.7, HGB 10.6, HCT 33.9, MCV 78.2 , PLT 256, much improved compared to 06/16/2018. On 07/15/2018, Dr. Sree Mathew performed EGD and C-scope. The esophagus was unremarkable. 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 She was also found to have some sigmoid diverticulosis. A polyp was seen at 30 cm from the anal verge and was removed. Pathology showed superficial portion of colorectal mucosa with a lymphoid aggregate and otherwise no diagnostic abnormality. Follow up colonoscopy in 5 years was recommended. - Patient Self-Reported Symptoms SR Genitourinary issues: Frequent urination SR Musculoskeletal issues: Joint pain or swelling, Muscle weakness, Muscle pain or cramps, Back or neck pain, Cold hands or feet, Difficulty walking - Additional ROS All systems PM: reviewed and no additional remarkable complaints except as stated Home Medications and Allergies Home Medications Medication Instructions Recorded Confirmed Type ascorbic acid (vitamin C) 1,000 mg PO BID #0 02/17/18 11/24/18 History calcium carbonate 1,000 mg PO QDAY #0 02/17/18 11/24/18 History cholecalciferol (vitamin D3) 5,000 iu PO QDAY #0 02/17/18 11/24/18 History [Vitamin D3] lisinopril 20 mg PO QDAY #0 02/17/18 11/24/18 History sertraline 200 mg PO QDAY #0 02/17/18 11/24/18 History vitamin E 1,000 iu PO QDAY #0 02/17/18 11/24/18 History metoprolol succinate 50 mg PO QPM 06/16/18 11/24/18 History lamotrigine 100 mg tablet 100 mg PO DAILY #90 tab 07/29/18 11/24/18 Rx topiramate 25 mg tablet 50 mg PO BID #360 tab 09/09/18 11/24/18 Rx gabapentin 900 mg PO DAILY 09/18/18 11/24/18 History atorvastatin 40 mg tablet 40 mg PO BEDTIME #30 tab 09/22/18 11/24/18 Rx naratriptan 2.5 mg PO Q4H PRN 10/20/18 11/24/18 History fremanezumab-vfrm 225 mg/1.5 mL 675 mg SUBCUT [id number] #4.5 ml 10/22/18 Rx subcutaneous syringe mirtazapine 30 mg tablet 30 mg PO BEDTIME #90 tab 10/22/18 11/24/18 Rx Allergies Allergy/AdvReac Type Severity Reaction Status Date / Time No Known Drug Allergies Allergy Verified 10/22/18 14:49 Exam Vital signs: Last Vital Signs Temp 97.8 F 11/24/18 16:17 Pulse 71 11/24/18 16:17 Resp 19 11/24/18 16:17 BP 115/50 L 11/24/18 16:17 Pulse Ox 98 11/24/18 16:17 ECOG 1 Narrative: Constitutional: Well developed, well nourished, not in any acute respiratory distress, average body habitus, well groomed, pleasant and cooperative. HEENT: Normocephalic atraumatic. Extraocular muscle movement intact. Pupils are round, equal and reactive to light and accommodations. Anicteric sclera. No hearing difficulty; Oral mucus membrane moist and without ulcers. Neck: Supple, symmetrical, and tracheal midline; No palpable thyromegaly and no palpable lymph nodes. Respiratory: No use of accessory muscles. Clear to auscultation, and no wheezes or rales or rubs. Cardiovascular: Regular rate and rhythm, S1 and S2 normal, no murmurs gallops or rubs. No JVD. No pitting edema of lower extremities. Abdomen: Soft, nontender, non-distended, bowel sounds normal, no palpable organomegaly, no hernia, no palpable masses. Lower extremities: No palpable pedal edema. Lymphatic: no palpable lymph nodes in the neck, axillae, or groins. Musculoskeletal: normal gait and station, no clubbing, no cyanosis, no pitting edema. Skin: no rashes, no ulcers, no petechiae Neurological: Awake and alert and oriented x3. CN II-XII grossly intact. No focal motor or sensory deficit. Psychiatric: Good judgment, good insight, normal affect, normal thought process , cooperative, no depression, no anxiety. Results - Labs Laboratory Last Values WBC 7.5 X10^3/uL (4.5-11.0) 10/16/18 15:41 RBC 4.43 X10^6/uL (4.0-5.2) 10/16/18 15:41 Hgb 11.7 g/dL (12.0-16.0) L 10/16/18 15:41 Hct 36.6 % (36-46) 10/16/18 15:41 MCV 82.7 fL (80-100) 10/16/18 15:41 MCH 26.3 PG (26-34) 10/16/18 15:41 MCHC 31.9 % (30-36) 10/16/18 15:41 RDW 23.0 % (11.6-14.8) H 10/16/18 15:41 Plt Count 207 X10^3/uL (150-400) 10/16/18 15:41 Neut % (Auto) 59.9 % (50-75) 10/16/18 15:41 Lymph % (Auto) 29.9 % (25-40) 10/16/18 15:41 [place] % (Auto) 7.6 % (3-14) 10/16/18 15:41 Eos % (Auto) 1.7 % (2-4) L 10/16/18 15:41 Baso % (Auto) 0.9 % (0-2) 10/16/18 15:41 Neut # (Auto) 4500 /uL (5537-6956) 10/16/18 15:41 RBC Morphology Not Reportable 10/16/18 15:41 Poikilocytosis 1+ H 10/16/18 15:41 Anisocytosis 2+ H 10/16/18 15:41 Microcytosis 1+ H 09/01/18 15:00 Ovalocytes 1+ H 09/01/18 15:00 Sodium 145 mmol/L (137-145) 10/16/18 15:41 Potassium 4.1 mmol/L (3.4-5.1) 10/16/18 15:41 Chloride 110 mmol/L (98-107) H 10/16/18 15:41 Carbon Dioxide 24 mmol/L (22-32) 10/16/18 15:41 BUN 19 mg/dL (7-17) H 10/16/18 15:41 Creatinine 1.30 mg/dL (0.52-1.04) H 10/16/18 15:41 Estimated GFR 40.9 mL/min (>60) L 10/16/18 15:41 BUN/Creatinine Ratio 14.6 (6-22) 10/16/18 15:41 Glucose 82 mg/dL (80-110) 10/16/18 15:41 Calcium 9.0 mg/dL (8.4-10.2) 10/16/18 15:41 Iron 72 ug/dL (37-170) 10/16/18 15:41 TIBC 372 ug/dL (265-497) 10/16/18 15:41 % Saturation 19 % (15-50) 10/16/18 15:41 Transferrin 317 mg/dL (206-381) 10/16/18 15:41 Ferritin 26.8 ng/mL (11.1-264) 10/16/18 15:41 Total Bilirubin 0.1 mg/dL (0.2-1.3) L 10/16/18 15:41 AST 22 IU/L (14-36) 10/16/18 15:41 ALT 20 IU/L (9-52) 10/16/18 15:41 Alkaline Phosphatase 92 U/L (38-126) 10/16/18 15:41 Total Protein 7.1 g/dL (6.3-8.2) 10/16/18 15:41 Albumin 4.1 g/dL (3.5-5.0) 10/16/18 15:41 Globulin 3.0 g/dL (1.7-4.1) 10/16/18 15:41 Albumin/Globulin Ratio 1.4 (1.0-2.8) 10/16/18 15:41 Vitamin B12 320 pg/mL (239-931) 10/16/18 15:41 Folate 3.6 ng/mL (2.76-20.0) 10/16/18 15:41 Assessment and Plan (1) Folic acid deficiency Assessment: Patient said that he has been taking folic acid 3 mg once a day for the past 2 years. However the most recent serum folic acid level was below the lower limit of normal. Apparently patient is not absorbing the oral folic acid. This is due to the history of gastric surgery. I talked with the patient that I will try to use subcutaneous folic acid. We will monitor the level of folic acid in the serum to determine the dosage. Patient voiced understanding. Plan: 1. Folic acid 1 mg subQ x1 (Patient wanted to ask her PCP at [facility] to see if she can get injection there. If not, she will come back to our clinic for injection) 2. [facility] 3. RTC in 2 weeks to review the results. (2) Iron deficiency anemia Assessment and Plan: I reviewed the laboratory tests with the patient. The lab tests showed that her iron storage is beginning to decrease, but her CBC is still within the normal range. I will continue monitor her iron status and decide on when to given iron infusion. Patient's most recent lab showed folic acid deficiency (see above). (3) Chronic kidney disease (CKD), stage III (moderate) Assessment and Plan: The etiology of the chronic kidney damage is not clear at this moment. Patient has a long history of urinary incontinence. She has a implanted device to control the urinary flow. Ultrasound study of the kidney on 09/16/2018 showed no abnormal findings. Continue active surveillance. (4) Status post gastric surgery Assessment and Plan: Because of the surgery, absorption clearly will be affected. Patient will need continuous monitoring. Serial monitoring of iron, B12 and folic acid status.
[2018-11-24 16:17] VITALS: BP 115/50; PULSE 71; RESP 19; TEMP 36.6; O2SAT 98
[2018-12-29 16:21] VITALS: BP 144/71; PULSE 80; RESP 20; TEMP 36.9; O2SAT 99
--- NOTE | 2018-12-29 16:49 | P.PNONC_ITS ---
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 Her recent iron infusion was Venofer from 07/25/2018 through 09/01/2018. She presents today for scheduled follow up visit. She had her lab tests at [facility] on 11/21/2018 that showed Fe 60, TIBC 419, FeSat 14%, ferritin 42.5, B12 232, Folate 5.14, WBC 8.1, HGB 12.8, HCT 40, MCV 86.2, PLT 207. Since last visit, she underwent a lab tests of vitamin B12 and folic acid at [facility]. The vitamin B12 level was 206 which was within the normal range. However the folic acid level was 4.76 which is below the lower limit of normal of 5.9. Therefore patient received folic acid injection subcutaneously 1 mg every 2 weeks for 2 injections. In addition patient continues to take folic acid 1 mg once a day by mouth. Patient presents here today for scheduled follow-up visit. At the clinic, patient is complaining significant migraine headache. We have to turn off the light because of the migraine headache. Otherwise patient said that she has been doing about the same no significant new signs or symptoms. History of Present Illness Ms. Darline Bray is a 68 year old female with long-term chronic iron deficiency anemia of unknown etiology. She also has had a vitamin B12 deficiency anemia. She has been taking oral iron as well as oral vitamin B12. She had EGD and colonoscopy about in 2002 and was normal. She also has had Injectafer infusion in the past with excellent results and she feels a lot better after. In Jun, 2018, she was evaluated at [facility] for left hand and wrist cellulitis. The laboratory results showed that the white cell count 10.2, hemoglobin 9.0, hematocrit 28.4, MCV 71.9, MCH 22.7, MCHC 31.5, RDW 19.7, and platelets 241. She was then referred to hematology for further evaluation. I saw the patient on 06/30/2018. Labs tests on 07/03/2018 showed ferritin 7.3, Fe 13, TIBC 444, Transferrin 3, B12 was 326 and Folate 2.9. Therefore she r eceived intravenous Venofur (iron sucrose) 220 cc x 5 from 07/25/2018 until 09/01/2018. Repeat study on 09/01/2018 showed WBC 8.7, HGB 10.6, HCT 33.9, MCV 78.2, PLT 256, much improved compared to 06/16/2018. On 07/15/2018, Dr. Sree Mathew performed EGD and C-scope. The esophagus was unremarkable. 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 She was also found to have some sigmoid diverticulosis. A polyp was seen at 30 cm from the anal verge and was removed. Pathology showed superficial portion of colorectal mucosa with a lymphoid ag gregate and otherwise no diagnostic abnormality. Follow up colonoscopy in 5 years was recommended (2023). - Patient Self-Reported Symptoms SR Constitution: Chills SR respiratory issues: Mucous SR Gastrointestinal issues: Nausea, Vomiting SR Genitourinary issues: Frequent urination SR Musculoskeletal issues: Cold hands or feet SR Neuro issues: Headache - Additional ROS All systems PM: reviewed and no additional remarkable complaints except as stated Home Medications and Allergies Home Medications Medication Instructions Recorded Confirmed Type ascorbic acid (vitamin C) 1,000 mg PO BID #0 02/17/18 12/29/18 History calcium carbonate 1,000 mg PO DAILY #0 02/17/18 12/29/18 History cholecalciferol (vitamin D3) 5,000 iu PO DAILY #0 02/17/18 12/29/18 History [Vitamin D3] lisinopril 20 mg PO DAILY #0 02/17/18 12/29/18 History sertraline 200 mg PO QAM #0 02/17/18 12/29/18 History metoprolol succinate 50 mg PO BEDTIME 06/16/18 12/29/18 History lamotrigine 100 mg tablet 100 mg PO DAILY #90 tab 07/29/18 12/29/18 Rx topiramate 25 mg tablet 50 mg PO BID #360 tab 09/09/18 12/29/18 Rx atorvastatin 40 mg tablet 40 mg PO BEDTIME #30 tab 09/22/18 12/29/18 Rx mirtazapine 30 mg tablet 30 mg PO BEDTIME #90 tab 10/22/18 12/29/18 Rx fremanezumab-vfrm 225 mg/1.5 mL 675 mg SUBCUT [id number] #4.5 ml 12/02/18 12/29/18 Rx subcutaneous syringe acyclovir 800 mg PO BID PRN 12/08/18 12/29/18 History naratriptan See Rx Instructions .ROUTE .COMPLEX 12/08/18 12/29/18 History risperidone 0.5 - 1 mg PO BEDTIME 12/08/18 12/29/18 History trazodone 50 - 100 mg PO BEDTIME PRN 12/08/18 12/29/18 History Allergies Allergy/AdvReac Type Severity Reaction Status Date / Time No Known Drug Allergies Allergy Verified 10/22/18 14:49 Exam Vital signs: Last Vital Signs Temp 98.5 F 12/29/18 16:21 Pulse 80 12/29/18 16:21 Resp 20 12/29/18 16:21 BP 144/71 H 12/29/18 16:21 Pulse Ox 99 12/29/18 16:21 ECOG 1 Narrative: Constitutional: Well developed, well nourished, not in any acute respiratory distress, average body habitus, well groomed, pleasant and cooperative. HEENT: Normocephalic atraumatic. Extraocular muscle movement intact. Pupils are round, equal and reactive to light and accommodations. Anicteric sclera. No hearing difficulty; Oral mucus membrane moist and without ulcers. Neck: Supple, symmetrical, and tracheal midline; No palpable thyromegaly and no palpable lymph nodes. Respiratory: No use of accessory muscles. Clear to auscultation, and no wheezes or rales or rubs. Cardiovascular: Regular rate and rhythm, S1 and S2 normal, no murmurs gallops or rubs. No JVD. No pitting edema of lower extremities. Abdomen: Soft, nontender, non-distended, bowel sounds normal, no palpable organomegaly, no hernia, no palpable masses. Lower extremities: No palpable pedal edema. Lymphatic: no palpable lymph nodes in the neck, axillae, or groins. Musculoskeletal: normal gait and station, no clubbing, no cyanosis, no pitting edema. Skin: no rashes, no ulcers, no petechiae Neurological: Awake and alert and oriented x3. CN II-XII grossly intact. No focal motor or sensory deficit. Psychiatric: Good judgment, good insight, normal affect, normal thought process, cooperative, no depression, no anxiety. Results - Labs Laboratory Last Values WBC 7.5 X10^3/uL (4.5-11.0) 10/16/18 15:41 RBC 4.43 X10^6/uL (4.0-5.2) 10/16/18 15:41 Hgb 11.7 g/dL (12.0-16.0) L 10/16/18 15:41 Hct 36.6 % (36-46) 10/16/18 15:41 MCV 82.7 fL (80-100) 10/16/18 15:41 MCH 26.3 PG (26-34) 10/16/18 15:41 MCHC 31.9 % (30-36) 10/16/18 15:41 RDW 23.0 % (11.6-14.8) H 10/16/18 15:41 Plt Count 207 X10^3/uL (150-400) 10/16/18 15:41 Neut % (Auto) 59.9 % (50-75) 10/16/18 15:41 Lymph % (Auto) 29.9 % (25-40) 10/16/18 15:41 [place] % (Auto) 7.6 % (3-14) 10/16/18 15:41 Eos % (Auto) 1.7 % (2-4) L 10/16/18 15:41 Baso % (Auto) 0.9 % (0-2) 10/16/18 15:41 Neut # (Auto) 4500 /uL (8210-9860) 10/16/18 15:41 RBC Morphology Not Reportable 10/16/18 15:41 Poikilocytosis 1+ H 10/16/18 15:41 Anisocytosis 2+ H 10/16/18 15:41 Microcytosis 1+ H 09/01/18 15:00 Ovalocytes 1+ H 09/01/18 15:00 Sodium 145 mmol/L (137-145) 10/16/18 15:41 Potassium 4.1 mmol/L (3.4-5.1) 10/16/18 15:41 Chloride 110 mmol/L (98-107) H 10/16/18 15:41 Carbon Dioxide 24 mmol/L (22-32) 10/16/18 15:41 BUN 19 mg/dL (7-17) H 10/16/18 15:41 Creatinine 1.30 mg/dL (0.52-1.04) H 10/16/18 15:41 Estimated GFR 40.9 mL/min (>60) L 10/16/18 15:41 BUN/Creatinine Ratio 14.6 (6-22) 10/16/18 15:41 Glucose 82 mg/dL (80-110) 10/16/18 15:41 Calcium 9.0 mg/dL (8.4-10.2) 10/16/18 15:41 Iron 72 ug/dL (37-170) 10/16/18 15:41 TIBC 372 ug/dL (265-497) 10/16/18 15:41 % Saturation 19 % (15-50) 10/16/18 15:41 Transferrin 317 mg/dL (206-381) 10/16/18 15:41 Ferritin 26.8 ng/mL (11.1-264) 10/16/18 15:41 Total Bilirubin 0.1 mg/dL (0.2-1.3) L 10/16/18 15:41 AST 22 IU/L (14-36) 10/16/18 15:41 ALT 20 IU/L (9-52) 10/16/18 15:41 Alkaline Phosphatase 92 U/L (38-126) 10/16/18 15:41 Total Protein 7.1 g/dL (6.3-8.2) 10/16/18 15:41 Albumin 4.1 g/dL (3.5-5.0) 10/16/18 15:41 Globulin 3.0 g/dL (1.7-4.1) 10/16/18 15:41 Albumin/Globulin Ratio 1.4 (1.0-2.8) 10/16/18 15:41 Vitamin B12 320 pg/mL (239-931) 10/16/18 15:41 Folate 3.6 ng/mL (2.76-20.0) 10/16/18 15:41 Assessment and Plan (1) Iron deficiency anemia Assessment: I talked with the patient that since she completed Venofer from 07/25/2018 through 09/01/2018, I have not seen any repeat lab results. During her previous visit, I sent standing order to [facility]. However I have not received any lab results yet. I talked with the patient that I am going to repeat the iron studies first and decide about if patient will need repeat iron infusion. Patient voiced understanding. Plan: 1. CBC, CMP, Iron panel, folic acid, b12 level on 01/01/2019 2. RTC on 01/08/2019 MD visit, review the results, and decide on iv iron infusion (2) Folic acid deficiency Assessment: This is due to the history of gastric surgery. Plan: 1. Continue oral folic acid 1 mg daily 2. Recheck folic acid level (see above) and decide on subQ folic acid injection when she comes back for follow up visit on 01/08/2019. (3) Chronic kidney disease (CKD), stage III (moderate) Assessment and Plan: The etiology of the chronic kidney damage is not clear at this moment. Patient has a long history of urinary incontinence. She has a implanted device to control the urinary flow. Ultrasound study of the kidney on 09/16/2018 showed no abnormal findings. Continue active surveillance. (4) Status post gastric surgery Assessment and Plan: Because of the surgery, absorption clearly will be affected. Patient will need continuous monitoring. Serial monitoring of iron, B12 and folic acid status.
--- NOTE | 2019-01-08 12:13 | P.PNONC_ITS ---
PN -Subjective Interval history: Since her last visit, patient said clinically she has not noticed any new changes. Patient underwent laboratory tests on 01/01/2019 it showed worsening iron deficiency with ferritin level 18.2, iron 47, total iron binding capacity 413 and iron saturation 11%. History of Present Illness Ms. Darline Bray is a 68 year old female with long-term chronic iron deficiency anemia of unknown etiology. She also has had a vitamin B12 deficiency anemia. She has been taking oral iron as well as oral vitamin B12. She had EGD and colonoscopy about in 2002 and was normal. She also has had Injectafer infusion in the past with excellent results and she feels a lot better after. In Jun, 2018, she was evaluated at ER of [facility] for left hand and wrist cellulitis. The laboratory results showed that the white cell count 10.2, hemoglobin 9.0, hematocrit 28.4, MCV 71.9, MCH 22.7, MCHC 31.5, RDW 19.7, and platelets 241. She was then referred to hematology for further evaluation. I saw the patient on 06/30/2018. Labs tests on 07/03/2018 showed ferritin 7.3, Fe 13, TIBC 444, Transferrin 3, B12 was 326 and Folate 2.9. Therefore she received intravenous Venofur (iron sucrose) 220 cc x 5 from 07/25/2018 until 09/01/2018. Repeat study on 09/01/2018 showed WBC 8.7, HGB 10.6, HCT 33.9, MCV 78.2, PLT 256, much improved compared to 06/16/2018. On 07/15/2018, Dr. Sree Mathew performed EGD and C-scope. The esophagus was unremarkable. 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 She was also found to have some sigmoid diverticulosis. A polyp was seen at 30 cm from the anal verge and was removed. Pathology showed superficial portion of colorectal mucosa with a lymphoid aggregate and otherwise no diagnostic abnormality. Follow up colonoscopy in 5 years was recommended (2023). - Patient Self-Reported Symptoms SR Constitution: Chills SR respiratory issues: Mucous SR Gastrointestinal issues: Nausea, Vomiting SR Genitourinary issues: Frequent urination SR Musculoskeletal issues: Cold hands or feet SR Neuro issues: Headache - Additional ROS All systems PM: reviewed and no additional remarkable complaints except as stated Home Medications and Allergies Home Medications Medication Instructions Recorded Confirmed Type ascorbic acid (vitamin C) 1,000 mg PO BID #0 02/17/18 01/01/19 History calcium carbonate 1,000 mg PO DAILY #0 02/17/18 01/01/19 History cholecalciferol (vitamin D3) 5,000 iu PO DAILY #0 02/17/18 01/01/19 History [Vitamin D3] lisinopril 20 mg PO DAILY #0 02/17/18 01/01/19 History sertraline 200 mg PO QAM #0 02/17/18 01/01/19 History metoprolol succinate 50 mg PO BEDTIME 06/16/18 01/01/19 History lamotrigine 100 mg tablet 100 mg PO DAILY #90 tab 07/29/18 01/01/19 Rx topiramate 25 mg tablet 50 mg PO BID #360 tab 09/09/18 01/01/19 Rx atorvastatin 40 mg tablet 40 mg PO BEDTIME #30 tab 09/22/18 01/01/19 Rx mirtazapine 30 mg tablet 30 mg PO BEDTIME #90 tab 10/22/18 01/01/19 Rx fremanezumab-vfrm 225 mg/1.5 mL 675 mg SUBCUT [id number] #4.5 ml 12/02/18 01/01/19 Rx subcutaneous syringe acyclovir 800 mg PO BID PRN 12/08/18 01/01/19 History naratriptan See Rx Instructions .ROUTE .COMPLEX 12/08/18 01/01/19 History risperidone 0.5 - 1 mg PO BEDTIME 12/08/18 01/01/19 History trazodone 100 mg tablet 50 - 100 mg PO BEDTIME PRN #30 tab 12/30/18 01/01/19 Rx naratriptan 2.5 mg tablet 2.5 mg PO ONCE #30 tab 01/01/19 Rx prazosin 1 mg capsule 1 mg PO DAILY #60 cap 01/01/19 Rx Allergies Allergy/AdvReac Type Severity Reaction Status Date / Time No Known Drug Allergies Allergy Verified 01/01/19 15:56 Exam Vital signs: Last Vital Signs Temp 97.7 F 01/08/19 12:15 Pulse 79 01/08/19 12:15 Resp 18 01/08/19 12:15 BP 145/70 H 01/08/19 12:15 Pulse Ox 98 01/08/19 12:15 ECOG 1 Narrative: Constitutional: Well developed, well nourished, not in any acute respiratory distress, average body habitus, well groomed, pleasant and cooperative. HEENT: Normocephalic atraumatic. Extraocular muscle movement intact. Pupils are round, equal and reactive to light and accommodations. Anicteric sclera. No hearing difficulty; Oral mucus membrane moist and without ulcers. Neck: Supple, symmetrical, and tracheal midline; No palpable thyromegaly and no palpable lymph nodes. Respiratory: No use of accessory muscles. Clear to auscultation, and no wheezes or rales or rubs. Cardiovascular: Regular rate and rhythm, S1 and S2 normal, no murmurs gallops or rubs. No JVD. No pitting edema of lower extremities. Abdomen: Soft, nontender, non-distended, bowel sounds normal, no palpable organomegaly, no hernia, no palpable masses. Lower extremities: No palpable pedal edema. Lymphatic: no palpable lymph nodes in the neck, axillae, or groins. Musculoskeletal: normal gait and station, no clubbing, no cyanosis, no pitting edema. Skin: no rashes, no ulcers, no petechiae Neurological: Awake and alert and oriented x3. CN II-XII grossly intact. No focal motor or sensory deficit. Psychiatric: Good judgment, good insight, normal affect, normal thought process, cooperative, no depression, no anxiety. Results - Labs 01/01/2019: WBC 8.5, hemoglobin 11.8, hematocrit 36.6, platelets 221, sodium 140, potassium 3.7, chloride 108, carbon dioxide 20, BUN 20, creatinine 1.3, glucose 134, calcium 8.8, iron 47, total iron binding capacity 413, saturation of transferring 11%, transferrin 310, ferritin 18.2, total bilirubin 0.3, AST 24, ALT 26, alk-phos 115, total protein 7.0, albumin 4.0, globulin 3.0. Assessment and Plan (1) Iron deficiency anemia Assessment: Reviewed the most recent laboratory tests with the patient. Clearly the iron studies indicated worsening iron deficiency. I talked with the patient that I will give her a second round of Venofer injection 200 mg iv weekly x5. And I will see the patient in about 2 months. Patient voiced understanding. Plan: 1. Venofer 200 mg iv weekly x 5 2. RTC on April 02, 2019, CBC, CMP, Iron panel, and ferritin one day prior. (2) Folic acid deficiency Assessment and Plan: This is due to the history of gastric surgery. Lab test is improving. Continue oral folic acid 1 mg daily (3) Chronic kidney disease (CKD), stage III (moderate) Assessment and Plan: The etiology of the chronic kidney damage is not clear at this moment. Patient has a long history of urinary incontinence. She has a implanted device to control the urinary flow. Ultrasound study of the kidney on 09/16/2018 showed no abnormal findings. Continue active surveillance. (4) Status post gastric surgery Assessment and Plan: Because of the surgery, absorption clearly will be affected. Patient will need continuous monitoring. Serial monitoring of iron, B12 and folic acid status.
[2019-01-08 12:15] VITALS: BP 145/70; PULSE 79; RESP 18; TEMP 36.5; O2SAT 98
[2019-01-12] MEDS: IRON SUCROSE 200 MG in SODIUM CHLORIDE 0.9% 100 ML 220 ML IV (15:16)
[2019-01-12 15:40] VITALS: BP 127/84; PULSE 72; RESP 18; TEMP 36.8; O2SAT 99
[2019-01-20] MEDS: IRON SUCROSE 200 MG in SODIUM CHLORIDE 0.9% 100 ML 220 ML IV (15:58)
[2019-01-20 15:59] VITALS: BP 125/72; PULSE 62; RESP 18; TEMP 36.9
[2019-01-26 15:48] VITALS: BP 108/67; PULSE 68; RESP 16; TEMP 36.8
[2019-01-26] MEDS: IRON SUCROSE 200 MG in SODIUM CHLORIDE 0.9% 100 ML 220 ML IV (15:56)
[2019-02-02] MEDS: IRON SUCROSE 200 MG in SODIUM CHLORIDE 0.9% 100 ML 220 ML IV (15:59)
[2019-02-02 16:34] VITALS: BP 124/68; PULSE 80; RESP 18; TEMP 36.9
[2019-02-09] MEDS: IRON SUCROSE 200 MG in SODIUM CHLORIDE 0.9% 100 ML 220 ML IV (16:17)
[2019-02-09 16:29] VITALS: BP 142/81; PULSE 77; RESP 18; TEMP 36.8
--- NOTE | 2019-02-23 16:09 | PC.NURSE ---
Pt requesting clarification. According to pt she thought she was supposed to receive [address]. Frotune's dicttation, he ordered [address] Fortune to clarify.
[2019-02-23 17:39] LABS: Add Manual Diff / Slide Review NO; Basophils Absolute Auto 100 /uL (0-100); Basophils Percent Auto 0.9 % (0-2); Eosinophils Absolute Auto 200 /uL (0-450); Eosinophils Percent Auto 2.6 % (2-4); Hematocrit 38.3 % (36-46); Hemoglobin 12.5 g/dL (12.0-16.0); Lymphocytes Absolute Auto 1900 /uL (1100-4500); Lymphocytes Percent Auto 24.1 % (25-40); Mean Corpuscular HGB Conc 32.5 % (30-36); Mean Corpuscular Hemoglobin 29.9 PG (26-34); Mean Corpuscular Volume 91.8 fL (80-100); Monocytes Absolute Auto 500 /uL (0-900); Monocytes Percent Auto 6.5 % (3-14); Neutrophils Absolute Auto 5200 /uL (1500-7000); Neutrophils Percent Auto 65.9 % (50-75); Platelet Count 199 X10^3/uL (150-400); Red Blood Cell Count 4.17 X10^6/uL (4.0-5.2); Red Cell Distribution Width 15.2 % (11.6-14.8); White Blood Cell Count 7.9 X10^3/uL (4.5-11.0)
[2019-02-23 17:54] LABS: HEMOLYSIS < 15 (0-50); Iron 60 ug/dL (37-170)
[2019-02-23 17:56] LABS: Alanine Aminotransferase 29 IU/L (9-52); Albumin 4.2 g/dL (3.5-5.0); Albumin Globulin Ratio 1.5 (1.0-2.8); Alkaline Phosphatase 109 U/L (38-126); Aspartate Aminotransferase 26 IU/L (14-36); BUN Creatinine Ratio 17.7 (6-22); Bilirubin Total 0.2 mg/dL (0.2-1.3); Blood Urea Nitrogen 23 mg/dL (7-17); Calcium 9.4 mg/dL (8.4-10.2); Carbon Dioxide 23 mmol/L (22-32); Chloride 110 mmol/L (98-107); Estimated Glomerular Filt Rate 40.9 mL/min (>60); Globulin 2.8 g/dL (1.7-4.1); Glucose 92 mg/dL (80-110); HEMOLYSIS < 15 (0-50); Potassium 5.1 mmol/L (3.4-5.1); Sodium 143 mmol/L (137-145)
[2019-02-23 18:05] LABS: Percent Iron Saturation 21 % (15-50); Total Iron Binding Capacity 292 ug/dL (265-497); Transferrin 218 mg/dL (206-381)
[2019-02-23 19:04] LABS: Folate 6.6 ng/mL (2.76-20.0); Vitamin B12 353 pg/mL (239-931)
--- NOTE | 2019-02-24 09:46 | PC.NURSE ---
Informed pt that Dr. Fortune confirmed order for 5 iron infusions, pt verbalized understanding.
[2019-03-25 14:36] LABS: Hematocrit 35.6 % (36-46); Hemoglobin 11.9 g/dL (12.0-16.0); Mean Corpuscular HGB Conc 33.5 % (30-36); Mean Corpuscular Hemoglobin 30.3 PG (26-34); Mean Corpuscular Volume 90.5 fL (80-100); Platelet Count 177 X10^3/uL (150-400); Red Blood Cell Count 3.94 X10^6/uL (4.0-5.2); Red Cell Distribution Width 13.9 % (11.6-14.8); White Blood Cell Count 6.7 X10^3/uL (4.5-11.0)
[2019-03-25 14:53] LABS: Alanine Aminotransferase 20 IU/L (9-52); Albumin 3.8 g/dL (3.5-5.0); Albumin Globulin Ratio 1.3 (1.0-2.8); Alkaline Phosphatase 97 U/L (38-126); Aspartate Aminotransferase 24 IU/L (14-36); BUN Creatinine Ratio 12.3 (6-22); Bilirubin Total 0.3 mg/dL (0.2-1.3); Blood Urea Nitrogen 16 mg/dL (7-17); Calcium 8.6 mg/dL (8.4-10.2); Carbon Dioxide 21 mmol/L (22-32); Chloride 110 mmol/L (98-107); Estimated Glomerular Filt Rate 40.7 mL/min (>60); Globulin 2.9 g/dL (1.7-4.1); Glucose 115 mg/dL (80-110); HEMOLYSIS < 15 (0-50); Potassium 3.7 mmol/L (3.4-5.1); Sodium 141 mmol/L (137-145); Total Protein 6.7 g/dL (6.3-8.2)
[2019-03-25 14:57] LABS: Neutrophils Absolute Manual 4690 /uL (3000-5900); RBC Morphology Normal Morphology; Total Cells Counted 100
[2019-03-25 14:59] LABS: HEMOLYSIS < 15 (0-50); Iron 44 ug/dL (37-170)
[2019-03-25 15:09] LABS: Percent Iron Saturation 17 % (15-50); Total Iron Binding Capacity 262 ug/dL (265-497); Transferrin 191 mg/dL (206-381)
[2019-03-25 15:59] LABS: Folate 3.8 ng/mL (2.76-20.0); Vitamin B12 283 pg/mL (239-931)
[2019-04-02 16:53] VITALS: BP 140/73; PULSE 58; RESP 18; TEMP 36.9; O2SAT 96
--- NOTE | 2019-04-02 17:24 | P.PNONC_ITS ---
PN -Subjective Interval history: Patient underwent laboratory tests on 01/01/2019 it showed worsening iron deficiency with ferritin level 18.2, iron 47, total iron binding capacity 413 and iron saturation 11%. Therefore, she underwent venofer infusion 200 mg weekly x 3 completed 02/09/2019. She presents today for scheduled follow up visit. Since her last visit, patient said clinically she has not noticed any new changes History of Present Illness Ms. Darline Bray is a 68 year old female with long-term chronic iron deficiency anemia of unknown etiology. She also has had a vitamin B12 deficiency anemia. She has been taking oral iron as well as oral vitamin B12. She had EGD and colonoscopy about in 2002 and was normal. She also has had Injectafer infusion in the past with excellent results and she feels a lot better after. In Jun, 2018, she was evaluated at ER of [facility] for left hand and wrist cellulitis. The laboratory results showed that the white cell count 10.2, hemoglobin 9.0, hematocrit 28.4, MCV 71.9, MCH 22.7, MCHC 31.5, RDW 19.7, and platelets 241. She was then referred to hematology for further evaluation. I saw the patient on 06/30/2018. Labs tests on 07/03/2018 showed ferritin 7.3, Fe 13, TIBC 444, Transferrin 3, B12 was 326 and Folate 2.9. Therefore she received intravenous Venofur (iron sucrose) 220 cc x 5 from 07/25/2018 until 09/01/2018. Repeat study on 09/01/2018 showed WBC 8.7, HGB 10.6, HCT 33.9, MCV 78.2, PLT 256, much improved compared to 06/16/2018. On 07/15/2018, Dr. Sree Mathew performed EGD and C-scope. The esophagus was unremarkable. 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 She was also found to have some sigmoid diverticulosis. A polyp was seen at 30 cm from the anal verge and was removed. Pathology showed superficial portion of colorectal mucosa with a lymphoid aggregate and otherwise no diagnostic abnormality. Follow up colonoscopy in 5 years was recommended (2023). - Patient Self-Reported Symptoms SR Constitution: Chills SR respiratory issues: Mucous SR Gastrointestinal issues: Nausea, Vomiting SR Genitourinary issues: Frequent urination SR Musculoskeletal issues: Cold hands or feet SR Neuro issues: Headache - Additional ROS All systems PM: reviewed and no additional remarkable complaints except as stated Home Medications and Allergies Home Medications Medication Instructions Recorded Confirmed Type ascorbic acid (vitamin C) 1,000 mg PO BID #0 02/17/18 03/16/19 History calcium carbonate 1,000 mg PO DAILY #0 02/17/18 03/16/19 History cholecalciferol (vitamin D3) 5,000 iu PO DAILY #0 02/17/18 03/16/19 History [Vitamin D3] lisinopril 20 mg PO DAILY #0 02/17/18 03/16/19 History sertraline 200 mg PO QAM #0 02/17/18 03/16/19 History metoprolol succinate 50 mg PO BEDTIME 06/16/18 03/16/19 History fremanezumab-vfrm 225 mg/1.5 mL 675 mg SUBCUT [id number] #4.5 ml 12/02/18 03/16/19 Rx subcutaneous syringe acyclovir 800 mg PO BID PRN 12/08/18 03/16/19 History naratriptan See Rx Instructions .ROUTE .COMPLEX 12/08/18 03/16/19 History naratriptan 2.5 mg tablet 2.5 mg PO ONCE #30 tab 01/01/19 03/16/19 Rx prazosin 1 mg capsule See Rx Instructions PO DAILY #90 01/12/19 03/16/19 Rx cap lamotrigine 100 mg tablet 100 mg PO DAILY #90 tab 01/29/19 03/16/19 Rx atorvastatin 40 mg tablet 40 mg PO BEDTIME #90 tab 01/30/19 03/16/19 Rx topiramate 25 mg tablet 50 mg PO BID #360 tab 03/10/19 03/16/19 Rx mirtazapine 45 mg tablet 45 mg PO DAILY #90 tab 03/16/19 Rx Allergies Allergy/AdvReac Type Severity Reaction Status Date / Time No Known Drug Allergies Allergy Verified 01/01/19 15:56 Exam Vital signs: Vital Signs Temp Pulse Resp BP Pulse Ox 04/02/19 16:53 98.4 F 58 L 18 140/73 96 Intake and Output 04/02/19 04/02/19 04/02/19 07:59 15:59 23:59 Other: Weight 89 kg Patient Weight 04/02/19 23:59 Weight 89 kg ECOG 1 Narrative: Constitutional: Well developed, well nourished, not in any acute respiratory distress, average body habitus, well groomed, pleasant and cooperative. HEENT: Normocephalic atraumatic. Extraocular muscle movement intact. Pupils are round, equal and reactive to light and accommodations. Anicteric sclera. No hearing difficulty; Oral mucus membrane moist and without ulcers. Neck: Supple, symmetrical, and tracheal midline; No palpable thyromegaly and no palpable lymph nodes. Respiratory: No use of accessory muscles. Clear to auscultation, and no wheezes or rales or rubs. Cardiovascular: Regular rate and rhythm, S1 and S2 normal, no murmurs gallops or rubs. No JVD. No pitting edema of lower extremities. Abdomen: Soft, nontender, non-distended, bowel sounds normal, no palpable organomegaly, no hernia, no palpable masses. Lower extremities: No palpable pedal edema. Lymphatic: no palpable lymph nodes in the neck, axillae, or groins. Musculoskeletal: normal gait and station, no clubbing, no cyanosis, no pitting edema. Skin: no rashes, no ulcers, no petechiae Neurological: Awake and alert and oriented x3. CN II-XII grossly intact. No focal motor or sensory deficit. Psychiatric: Good judgment, good insight, normal affect, normal thought process, cooperative, no depression, no anxiety. Results - Labs Laboratory Last Values WBC 6.7 X10^3/uL (4.5-11.0) 03/25/19 14: RBC 3.94 X10^6/uL (4.0-5.2) L 03/25/19 14:26 Hgb 11.9 g/dL (12.0-16.0) L 03/25/19 14: Hct 35.6 % (36-46) L 03/25/19 14:26 MCV 90.5 fL (80-100) 03/25/19 14:26 MCH 30.3 PG (26-34) 03/25/19 14: MCHC 33.5 % (30-36) 03/25/19 14: RDW 13.9 % (11.6-14.8) 03/25/19 14:26 Plt Count 177 X10^3/uL (150-400) 03/25/19 14:26 Neut % (Auto) 65.9 % (50-75) 02/23/19 16:23 Lymph % (Auto) 24.1 % (25-40) L 02/23/19 16:23 [place] % (Auto) 6.5 % (3-14) 02/23/19 16:23 Eos % (Auto) 2.6 % (2-4) 02/23/19 16:23 Baso % (Auto) 0.9 % (0-2) 02/23/19 16:23 Neut # (Auto) 5200 /uL (7326-6446) 02/23/19 16:23 Lymph # (Auto) 1900 /uL (5066-3527) 02/23/19 16:23 [place] # (Auto) 500 /uL (0-900) 02/23/19 16:23 Eos # (Auto) 200 /uL (0-450) 02/23/19 16:23 Baso # (Auto) 100 /uL (0-100) 02/23/19 16:23 Total Counted 100 03/25/19 14:26 Seg Neutrophils % 70.0 % (38-70) 03/25/19 14:26 Lymphocytes % (Manual) 25.0 % (25-45) 03/25/19 14:26 Monocytes % (Manual) 4.0 % (2-11) 03/25/19 14:26 Eosinophils % (Manual) 1.0 % (2-4) L 03/25/19 14:26 Neutrophils # (Manual) 4690 /uL (4232-1348) 03/25/19 14:26 RBC Morphology Normal morphology 03/25/19 14:26 Poikilocytosis 1+ H 10/16/18 15:41 Anisocytosis 2+ H 10/16/18 15:41 Microcytosis 1+ H 09/01/18 15:00 Ovalocytes 1+ H 09/01/18 15:00 Sodium 141 mmol/L (137-145) 03/25/19 14:26 Potassium 3.7 mmol/L (3.4-5.1) 03/25/19 14:26 Chloride 110 mmol/L (98-107) H 03/25/19 14:26 Carbon Dioxide 21 mmol/L (22-32) L 03/25/19 14:26 BUN 16 mg/dL (7-17) 03/25/19 14:26 Creatinine 1.30 mg/dL (0.52-1.04) H 03/25/19 14:26 Estimated GFR 40.7 mL/min (>60) L 03/25/19 14:26 BUN/Creatinine Ratio 12.3 (6-22) 03/25/19 14:26 Glucose 115 mg/dL (80-110) H 03/25/19 14:26 Calcium 8.6 mg/dL (8.4-10.2) 03/25/19 14:26 Iron 44 ug/dL (37-170) 03/25/19 14:26 TIBC 262 ug/dL (265-497) L 03/25/19 14:26 % Saturation 17 % (15-50) 03/25/19 14:26 Transferrin 191 mg/dL (206-381) L 03/25/19 14:26 Ferritin 103.0 ng/mL (11.1-264) 03/25/19 14:26 Total Bilirubin 0.3 mg/dL (0.2-1.3) 03/25/19 14:26 AST 24 IU/L (14-36) 03/25/19 14:26 ALT 20 IU/L (9-52) 03/25/19 14:26 Alkaline Phosphatase 97 U/L (38-126) 03/25/19 14:26 Total Protein 6.7 g/dL (6.3-8.2) 03/25/19 14:26 Albumin 3.8 g/dL (3.5-5.0) 03/25/19 14:26 Globulin 2.9 g/dL (1.7-4.1) 03/25/19 14:26 Albumin/Globulin Ratio 1.3 (1.0-2.8) 03/25/19 14:26 Vitamin B12 283 pg/mL (239-931) 03/25/19 14:27 Folate 3.8 ng/mL (2.76-20.0) 03/25/19 14:27 Assessment and Plan (1) Iron deficiency anemia Assessment: I reviewed the most recent laboratory tests with the patient. After the most recent Venofer infusion which was completed on February 09, patient's iron storage seems to be normal, but probably is trending downward even though it is still within the normal range. I talked with the patient I will continue monitoring the iron storage closely. Once the iron storage is replete, I will consider giving erythropointin injection given the concurrent chronic kidney disease. Plan: 1. CBC, CMP, Iron panel, ferritin, TSH on 04/27/2019 2. RTC MD visit on 05/04/2019 (2) Folic acid deficiency This is due to the history of gastric surgery. Lab test is improving. Continue oral folic acid 1 mg daily (3) Chronic kidney disease (CKD), stage III (moderate) The etiology of the chronic kidney damage is not clear at this moment. Patient has a long history of urinary incontinence. She has a implanted device to control the urinary flow. Ultrasound study of the kidney on 09/16/2018 showed no abnormal findings. Continue active surveillance. (4) Status post gastric surgery Because of the surgery, absorption clearly will be affected. Patient will need continuous monitoring. Serial monitoring of iron, B12 and folic acid status.
[2019-07-16 15:20] LABS: Add Manual Diff / Slide Review NO; Basophils Absolute Auto 100 /uL (0-100); Basophils Percent Auto 0.9 % (0-2); Eosinophils Absolute Auto 100 /uL (0-450); Eosinophils Percent Auto 1.8 % (2-4); Hematocrit 38.3 % (36-46); Hemoglobin 12.8 g/dL (12.0-16.0); Lymphocytes Absolute Auto 1800 /uL (1100-4500); Mean Corpuscular HGB Conc 33.4 % (30-36); Mean Corpuscular Hemoglobin 31.5 PG (26-34); Mean Corpuscular Volume 94.4 fL (80-100); Monocytes Absolute Auto 400 /uL (0-900); Monocytes Percent Auto 5.3 % (3-14); Neutrophils Absolute Auto 5500 /uL (1500-7000); Platelet Count 225 X10^3/uL (150-400); Red Blood Cell Count 4.06 X10^6/uL (4.0-5.2); Red Cell Distribution Width 13.6 % (11.6-14.8)
[2019-07-16 16:22] LABS: HEMOLYSIS < 15 (0-50); Iron 72 ug/dL (37-170)
[2019-07-16 16:23] LABS: Alanine Aminotransferase 9 IU/L (9-52); Albumin 3.7 g/dL (3.5-5.0); Albumin Globulin Ratio 1.3 (1.0-2.8); Alkaline Phosphatase 103 U/L (38-126); Aspartate Aminotransferase 19 IU/L (14-36); BUN Creatinine Ratio 19.2 (6-22); Bilirubin Total 0.4 mg/dL (0.2-1.3); Blood Urea Nitrogen 23 mg/dL (7-17); Calcium 8.7 mg/dL (8.4-10.2); Carbon Dioxide 19 mmol/L (22-32); Chloride 109 mmol/L (98-107); Estimated Glomerular Filt Rate 44.7 mL/min (>60); Globulin 2.8 g/dL (1.7-4.1); Glucose 193 mg/dL (80-110); HEMOLYSIS < 15 (0-50); Potassium 4.6 mmol/L (3.4-5.1); Sodium 140 mmol/L (137-145); Total Protein 6.5 g/dL (6.3-8.2)
[2019-07-16 16:32] LABS: Percent Iron Saturation 21 % (15-50); Total Iron Binding Capacity 349 ug/dL (265-497); Transferrin 275 mg/dL (206-381)
[2019-07-16 16:51] LABS: Thyroid Stimulating Hormone 2.05 uIU/mL (0.47-4.68)
[2019-07-16 17:39] LABS: Ferritin 62.1 ng/mL (11.1-264)
--- NOTE | 2019-07-27 15:23 | P.PNONC_ITS ---
PN -Subjective Interval history: ID/CC 69 year old with iron deficiency and had history of gastric surgery Oncology History: Ms. Darline Bray is a 69 year old female with long-term chronic iron deficiency anemia of unknown etiology. She also has had a vitamin B12 deficiency anemia. She has been taking oral iron as well as oral vitamin B12. She had EGD and colonoscopy about in 2002 and was normal. She also has had Injectafer infusion in the past with excellent results and she feels a lot better after. In Jun, 2018, she was evaluated at ER of [facility] for left hand and wrist cellulitis. The laboratory results showed that the white cell count 10.2, hemoglobin 9.0, hematocrit 28.4, MCV 71.9, MCH 22.7, MCHC 31.5, RDW 19.7, and platelets 241. She was then referred to hematology for further evaluation. I saw the patient on 06/30/2018. Labs tests on 07/03/2018 showed ferritin 7.3, Fe 13, TIBC 444, Transferrin 3, B12 was 326 and Folate 2.9. Therefore she received intravenous Venofur (iron sucrose) 220 cc x 5 from 07/25/2018 until 09/01/2018. Repeat study on 09/01/2018 showed WBC 8.7, HGB 10.6, HCT 33.9, MCV 78.2, PLT 256, much improved compared to 06/16/2018. On 07/15/2018, Dr. Sree Mathew performed EGD and C-scope. The esophagus was unremarkable. 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 She was also found to have some sigmoid diverticulosis. A polyp was seen at 30 cm from the anal verge and was removed. Pathology showed superficial portion of colorectal mucosa with a lymphoid aggregate and otherwise no diagnostic abnormality. Follow up colonoscopy in 5 years was recommended (2023). Interim Events Clinically patient has been doing well except feeling cold. She is now moving to [place] for knee surgeries. She is requesting transfer of care to [facility]. - Patient Self-Reported Symptoms SR Constitution: Chills SR respiratory issues: Mucous SR Gastrointestinal issues: Nausea, Vomiting SR Genitourinary issues: Frequent urination SR Musculoskeletal issues: Cold hands or feet SR Neuro issues: Headache - Additional ROS All systems PM: reviewed and no additional remarkable complaints except as stated Home Medications and Allergies Home Medications Medication Instructions Recorded Confirmed Type ascorbic acid (vitamin C) 1,000 mg PO BID #0 02/17/18 07/27/19 History calcium carbonate 1,000 mg PO DAILY #0 02/17/18 07/27/19 History cholecalciferol (vitamin D3) 5,000 iu PO DAILY #0 02/17/18 07/27/19 History [Vitamin D3] lisinopril 20 mg PO DAILY #0 02/17/18 07/27/19 History sertraline 200 mg PO QAM #0 02/17/18 07/27/19 History metoprolol succinate 50 mg PO BEDTIME 06/16/18 07/27/19 History fremanezumab-vfrm 225 mg/1.5 mL 675 mg SUBCUT [id number] #4.5 ml 12/02/18 07/27/19 Rx subcutaneous syringe acyclovir 800 mg PO BID PRN 12/08/18 07/27/19 History naratriptan See Rx Instructions .ROUTE .COMPLEX 12/08/18 07/27/19 History naratriptan 2.5 mg tablet 2.5 mg PO ONCE #30 tab 01/01/19 07/27/19 Rx prazosin 1 mg capsule See Rx Instructions PO DAILY #90 01/12/19 07/27/19 Rx cap lamotrigine 100 mg tablet 100 mg PO DAILY #90 tab 01/29/19 07/27/19 Rx atorvastatin 40 mg tablet 40 mg PO BEDTIME #90 tab 01/30/19 07/27/19 Rx topiramate 25 mg tablet 50 mg PO BID #360 tab 03/10/19 07/27/19 Rx mirtazapine 45 mg tablet 45 mg PO DAILY #90 tab 03/16/19 07/27/19 Rx gabapentin 300 mg capsule 900 mg PO BEDTIME #270 cap 05/20/19 07/27/19 Rx Allergies Allergy/AdvReac Type Severity Reaction Status Date / Time No Known Drug Allergies Allergy Verified 01/01/19 15:56 Results - Labs Laboratory Last Values WBC 8.0 X10^3/uL (4.5-11.0) 07/16/19 15:09 RBC 4.06 X10^6/uL (4.0-5.2) 07/16/19 15:09 Hgb 12.8 g/dL (12.0-16.0) 07/16/19 15:09 Hct 38.3 % (36-46) 07/16/19 15:09 MCV 94.4 fL (80-100) 07/16/19 15:09 MCH 31.5 PG (26-34) 07/16/19 15:09 MCHC 33.4 % (30-36) 07/16/19 15:09 RDW 13.6 % (11.6-14.8) 07/16/19 15:09 Plt Count 225 X10^3/uL (150-400) 07/16/19 15:09 Neut % (Auto) 69.0 % (50-75) 07/16/19 15:09 Lymph % (Auto) 23.0 % (25-40) L 07/16/19 15:09 [place] % (Auto) 5.3 % (3-14) 07/16/19 15:09 Eos % (Auto) 1.8 % (2-4) L 07/16/19 15:09 Baso % (Auto) 0.9 % (0-2) 07/16/19 15:09 Neut # (Auto) 5500 /uL (3042-7536) 07/16/19 15:09 Lymph # (Auto) 1800 /uL (8061-1147) 07/16/19 15:09 [place] # (Auto) 400 /uL (0-900) 07/16/19 15:09 Eos # (Auto) 100 /uL (0-450) 07/16/19 15:09 Baso # (Auto) 100 /uL (0-100) 07/16/19 15:09 Total Counted 100 03/25/19 14:26 Seg Neutrophils % 70.0 % (38-70) 03/25/19 14:26 Lymphocytes % (Manual) 25.0 % (25-45) 03/25/19 14:26 Monocytes % (Manual) 4.0 % (2-11) 03/25/19 14:26 Eosinophils % (Manual) 1.0 % (2-4) L 03/25/19 14:26 Neutrophils # (Manual) 4690 /uL (1564-1659) 03/25/19 14:26 RBC Morphology Normal morphology 03/25/19 14:26 Poikilocytosis 1+ H 10/16/18 15:41 Anisocytosis 2+ H 10/16/18 15:41 Microcytosis 1+ H 09/01/18 15:00 Ovalocytes 1+ H 09/01/18 15:00 Sodium 140 mmol/L (137-145) 07/16/19 15:09 Potassium 4.6 mmol/L (3.4-5.1) 07/16/19 15:09 Chloride 109 mmol/L (98-107) H 07/16/19 15:09 Carbon Dioxide 19 mmol/L (22-32) L 07/16/19 15:09 BUN 23 mg/dL (7-17) H 07/16/19 15:09 Creatinine 1.20 mg/dL (0.52-1.04) H 07/16/19 15:09 Estimated GFR 44.7 mL/min (>60) L 07/16/19 15:09 BUN/Creatinine Ratio 19.2 (6-22) 07/16/19 15:09 Glucose 193 mg/dL (80-110) H 07/16/19 15:09 Calcium 8.7 mg/dL (8.4-10.2) 07/16/19 15:09 Iron 72 ug/dL (37-170) 07/16/19 15:09 TIBC 349 ug/dL (265-497) 07/16/19 15:09 % Saturation 21 % (15-50) 07/16/19 15:09 Transferrin 275 mg/dL (206-381) 07/16/19 15:09 Ferritin 62.1 ng/mL (11.1-264) 07/16/19 15:09 Total Bilirubin 0.4 mg/dL (0.2-1.3) 07/16/19 15:09 AST 19 IU/L (14-36) 07/16/19 15:09 ALT 9 IU/L (9-52) 07/16/19 15:09 Alkaline Phosphatase 103 U/L (38-126) 07/16/19 15:09 Total Protein 6.5 g/dL (6.3-8.2) 07/16/19 15:09 Albumin 3.7 g/dL (3.5-5.0) 07/16/19 15:09 Globulin 2.8 g/dL (1.7-4.1) 07/16/19 15:09 Albumin/Globulin Ratio 1.3 (1.0-2.8) 07/16/19 15:09 Vitamin B12 283 pg/mL (239-931) 03/25/19 14:27 Folate 3.8 ng/mL (2.76-20.0) 03/25/19 14:27 TSH 2.05 uIU/mL (0.47-4.68) 07/16/19 15:09 Assessment and Plan (1) Iron deficiency anemia Assessment: I reviewed the most recent laboratory tests with the patient. After the most recent Venofer infusion which was completed on February 09, patient's iron storage seems to be normal, but is trending downward even though it is still within the normal range. I talked with the patient I will continue monitoring the iron storage closely. Today she said that she is going to [facility] for knee surgery. She is requesting transfer her care over to [facility]. Plan: Refer to Dr. Bob Calvillo at [place] to continue care (2) Folic acid deficiency This is due to the history of gastric surgery. Lab test is improving. Continue oral folic acid 1 mg daily (3) Chronic kidney disease (CKD), stage III (moderate) The etiology of the chronic kidney damage is not clear at this moment. Patient has a long history of urinary incontinence. She has a implanted device to control the urinary flow. Ultrasound study of the kidney on 09/16/2018 showed no abnormal findings. Continue active surveillance. (4) Status post gastric surgery Because of the surgery, absorption clearly will be affected. Patient will need continuous monitoring. Serial monitoring of iron, B12 and folic acid status.
[2019-07-27 15:28] VITALS: BP 122/58; PULSE 51; RESP 16; TEMP 36.5; O2SAT 97
== END ==
PROVIDERS: Visit Provider Internal Medicine Hematology & Oncology
DX: D50.9 Iron deficiency anemia, unspecified (principal); E53.8 Deficiency of other specified B group vitamins; N18.3 Chronic kidney disease, stage 3 (moderate); Z98.84 Bariatric surgery status
CPT/HCPCS: 36415; 80053; 82607; 82728; 82746; 83540; 83550; 84443; 85025; 90471; 90656; 96365; 99203; 99213; 99214; 99215; J1756; Q2038

== ENCOUNTER 2019-11-12 14:49 | Emergency (ER) | payer MEDICARE, SELFPAY ==
[2019-11-12 14:59] VITALS: BP 184/89; PULSE 76; RESP 20; TEMP 37; O2SAT 95
--- NOTE | 2019-11-12 15:06 | DI.RAD.S_ITS ---
PROCEDURE: XR SHOULDER RT MIN 2V INDICATIONS: pain x 3 weeks TECHNIQUE: 3 views of the shoulder were acquired. COMPARISON: None. FINDINGS: Bones: No fractures or dislocations. No suspicious bony lesions. Visualized ribs appear intact. Moderate AC joint degeneration. There is also glenohumeral sclerosis and spurring. Soft tissues: No suspicious soft tissue calcifications. IMPRESSION: Right shoulder joint degeneration. If the patient's pain or other symptoms persist, consider further evaluation with MRI Dictated by: Anuj Basurto M.D. on 11/12/2019 at 15:43 Approved by: Anuj Basurto M.D. on 11/12/2019 at 15:45
[2019-11-12] MEDS: CYCLOBENZAPRINE 10 MG TABLET PO (15:27)
[2019-11-12] MEDS: LIDOCAINE PATCH 1 EACH ADH..PATCH TOP (15:27)
[2019-11-12 15:51] LABS: Bilirubin Urine UA NEGATIVE (NEGATIVE); Color Urine UA YELLOW; Glucose Urine UA NEGATIVE (Negative); Ketones Urine UA NEGATIVE (NEGATIVE); Leukocyte Esterase Urine UA 2+ (NEGATIVE); Nitrite Urine UA POSITIVE (Negative); Occult Blood Urine UA TRACE-LYSED (Negative); Protein Urine UA NEGATIVE (Negative); Urobilinogen Urine UA 0.2 E.U./dL (0.2)
[2019-11-12 15:52] LABS: Appearance Urine UA Slightly Cloudy; pH Urine UA 5.5 (4.5-8.0)
[2019-11-12 16:05] LABS: Bacteria Urine Many (>30); RBC Urine 5-10/HPF (0-5/HPF); Squamous Epithelial Cell Urine 1-5 /HPF (0-5/HPF); WBC Urine 30-100/HPF (0-5/HPF)
[2019-11-12 16:06] LABS: Culture Indicated Urine Specimen Cultured
[2019-11-12 17:08] VITALS: BP 170/76; PULSE 84; RESP 16; O2SAT 97
--- NOTE | 2019-11-12 21:09 | ED_ITS ---
HPI - Extremity Injury (Upper) <Emily Connormer, WORKING SECOND [employer]-BC - Last Filed: 11/12/19 21:13> General Chief Complaint: Urogenital-Female Stated Complaint: injured left arm Time Seen by Provider: 11/12/19 14:57 Source: patient Mode of arrival: Ambulatory Limitations: no limitations History of Present Illness HPI narrative: The patient is a 61-year-old female who presents with family member for chief complaint of left shoulder pain. She states has been hurting for the past 3-4 weeks. She states it started hurting after she was helping somebody pack and move and move ?All their fucking shit.She has not seen anybody for this. She has tried Tylenol and Motrin with no help. Related Data Home Medications Medication Instructions Recorded Confirmed ascorbic acid (vitamin C) 1,000 mg PO BID #0 02/17/18 07/27/19 calcium carbonate 1,000 mg PO DAILY #0 02/17/18 07/27/19 cholecalciferol (vitamin D3) 5,000 iu PO DAILY #0 02/17/18 07/27/19 [Vitamin D3] lisinopril 20 mg PO DAILY #0 02/17/18 11/12/19 sertraline 200 mg PO QAM #0 02/17/18 07/27/19 metoprolol succinate 50 mg PO BEDTIME 06/16/18 07/27/19 acyclovir 800 mg PO BID PRN 12/08/18 07/27/19 prazosin 1 mg PO DAILY 11/12/19 11/12/19 sulfamethoxazole-trimethoprim 1 tab PO [id number] 11/12/19 11/12/19 topiramate 50 mg PO BID 11/12/19 11/12/19 Previous Rx's Medication Instructions Recorded fremanezumab-vfrm 225 mg/1.5 mL 675 mg SUBCUT [id number] #4.5 ml 12/02/18 subcutaneous syringe lamotrigine 100 mg tablet 100 mg PO DAILY #90 tab 01/29/19 atorvastatin 40 mg tablet 40 mg PO BEDTIME #90 tab 01/30/19 mirtazapine 45 mg tablet 45 mg PO DAILY #90 tab 03/16/19 gabapentin 300 mg capsule 900 mg PO BEDTIME #270 cap 05/20/19 naratriptan 2.5 mg tablet See Rx Instructions PO .COMPLEX #9 09/08/19 tab cyclobenzaprine 10 mg PO TID PRN #20 tab 11/12/19 sulfamethoxazole-trimethoprim 1 tab PO BID #10 tab 11/12/19 Allergies Allergy/AdvReac Type Severity Reaction Status Date / Time No Known Drug Allergies Allergy Verified 01/01/19 15:56 Review of Systems <MYNOR Arana - Last Filed: 11/12/19 21:13> Review of Systems Narrative: GENERAL: Denies chills, fatigue, malaise, fever, sweats. HEENT: Denies sinus pain, ear pain, sore throat, difficulty swallowing, dizziness. RESPIRATORY: Denies dyspnea, cough, wheezing, hemoptysis, sputum. CARDIOVASCULAR: Denies chest pain, palpitations, orthopnea, edema, GASTROINTESTINAL: Denies nausea, vomiting, abdominal pain, diarrhea, constipation, melena. : Denies dysuria, frequency, incontinence, hematuria, urinary retention. MUSCULOSKELETAL: see HPI SKIN: Denies rash, skin lesions, or other NEUROLOGIC: Denies weakness, headache, numbness, change in speech, confusion, seizures, incoordination. PSYCHIATRIC: No concerning psychosocial issues. 12 point review of systems is negative except for those stated above Patient History <MYNOR Arana - Last Filed: 11/12/19 21:13> Medical History Depression (Chronic) HTN (hypertension) (Chronic) Migraines (Chronic) PTSD (post-traumatic stress disorder) (Chronic) Surgical History H/O foot surgery (Resolved) History of bilateral breast reduction surgery (Resolved) History of partial hysterectomy (Resolved) Family History Father Hypertension Heart disease Stroke Mother Hypertension Cancer Brother Gallstones Hypertension Social History Smoking Status: Never smoker alcohol intake: never substance use type: does not use Smoking Status: Never smoker Substance Use Type: does not use Exam <MYNOR Arana - Last Filed: 11/12/19 21:13> Narrative Exam Narrative: GENERAL: This is a well-nourished, well-developed patient, in no acute distress HEAD: Atraumatic. Normocephalic. No temporal or scalp tenderness. EYES: Pupils equal round and reactive. Extraocular motions intact. No scleral icterus. No injection or drainage. ENT: Nose without bleeding, purulent drainage or septal hematoma. Throat without erythema, tonsillar hypertrophy or exudate. Uvula midline. Airway patent. NECK: Trachea midline. No JVD or lymphadenopathy. Supple, nontender, no meningeal signs. CARDIOVASCULAR: Regular rate and rhythm RESPIRATORY: No cough. No increased respiratory effort. No accessory muscle use. EXTREMITIES: General pain to palpation left shoulder. Positive left radial pulse. Good strength bilaterally left hands. Decreased flexion and extension of left arm at shoulder. Negative empty can test. BACK: Nontender without deformity or crepitance. No flank tenderness. NEURO: AOx3. SKIN: No rash or erythema on visible skin Initial Vital Signs Initial Vital Signs: Vital Signs Temperature 98.6 F 11/12/19 14:59 Pulse Rate 76 11/12/19 14:59 Respiratory Rate 11/12/19 14:59 Blood Pressure 184/89 H 11/12/19 14:59 Pulse Oximetry 95 11/12/19 14:59 <Emily Flores DO - Last Filed: 11/13/19 07:14> Initial Vital Signs Initial Vital Signs: Vital Signs Temperature 98.6 F 11/12/19 14:59 Pulse Rate 76 11/12/19 14:59 Respiratory Rate 11/12/19 14:59 Blood Pressure 184/89 H 11/12/19 14:59 Pulse Oximetry 95 11/12/19 14:59 Course <TOYA Arana-SHERRELL - Last Filed: 11/12/19 21:13> Orders Ordered: Discontinued Medications Cyclobenzaprine HCl (Flexeril) 10 mg PO NOW ONE Stop: 11/12/19 15:12 Last Admin: 11/12/19 15:27 Dose: 10 mg Documented by: JOSE Lidocaine (Lidoderm) 1 each TOP NOW ONE Stop: 11/12/19 15:12 Last Admin: 11/12/19 15:27 Dose: 1 each Documented by: SCANWALIO Vital Signs Vital signs: Vital Signs - 8 hr 11/12/19 14:59 11/12/19 17:08 Temperature 98.6 F Pulse Rate 76 84 Respiratory Rate 20 16 Blood Pressure 184/89 H 170/76 H Pulse Oximetry 95 97 <Emily Flores DO - Last Filed: 11/13/19 07:14> Orders Ordered: Discontinued Medications Cyclobenzaprine HCl (Flexeril) 10 mg PO NOW ONE Stop: 11/12/19 15:12 Last Admin: 11/12/19 15:27 Dose: 10 mg Documented by: SCANAPO Lidocaine (Lidoderm) 1 each TOP NOW ONE Stop: 11/12/19 15:12 Last Admin: 11/12/19 15:27 Dose: 1 each Documented by: SCANAPO Vital Signs Vital signs: Vital Signs - 8 hr 11/12/19 14:59 11/12/19 17:08 Temperature 98.6 F Pulse Rate 76 84 Respiratory Rate 20 16 Blood Pressure 184/89 H 170/76 H Pulse Oximetry 95 97 MDM - Extremity Injury (Upper) <TOYA Arana-BC - Last Filed: 11/12/19 21:13> Lab Data Labs: Lab Results 11/12/19 Range/Units 15:45 Urine Color Yellow Urine Appearance Slightly cloudy Urine pH 5.5 (4.5-8.0) Ur Specific [place] 1.020 (1.000-1.035) Urine Protein Negative (Negative) Urine Glucose (UA) Negative (Negative) g/dL Urine Ketones Negative (NEGATIVE) Urine Occult Blood Trace-lysed (Negative) Urine Nitrate Positive (Negative) Urine Bilirubin Negative (NEGATIVE) Urine Urobilinogen 0.2 (0.2) E.U./dL Ur Leukocyte Esterase 2+ H (NEGATIVE) Urine RBC 5-10/hpf H (0-5/HPF) Urine WBC 30-100/hpf H (0-5/HPF) Ur Squamous Epith Cells 1-5 /hpf (0-5/HPF) Urine Bacteria Many (>30) H (None) Ur Culture Indicated? Specimen cultured Imaging Data Extremity x-ray #1: Radiologist's Impression: [address] [id number] XRay Report Signed Patient: Darline Bray MadiR#: [id number] : 1Acct:[id number] Age/Sex: 69 / FDate of Service: 11/12/19 Loc: ED Accession Number: [id number] Procedure: XR shoulder RT min 2V Ordering Provider: Emily Mac PROCEDURE: XR SHOULDER RT MIN 2V INDICATIONS: pain x 3 weeks TECHNIQUE: 3 views of the shoulder were acquired. COMPARISON: None. FINDINGS: Bones: No fractures or dislocations. No suspicious bony lesions. Visualized ribs appear intact. Moderate AC joint degeneration. There is also glenohumeral sclerosis and spurring. Soft tissues: No suspicious soft tissue calcifications. IMPRESSION: Right shoulder joint degeneration. If the patient's pain or other symptoms persist, consider further evaluation with MRI Dictated by: Anuj Basurto M.D. on 11/12/2019 at 15:43 Approved by: Anuj Basurto M.D. on 11/12/2019 at 15:45 MDM Narrative Medical decision making narrative: The patient is a 69-year-old female who presents with a chief complaint of left shoulder pain for 3-4 weeks after helping somebody move. X-ray is concerning for degenerative changes. The patient was given above-stated medications and felt much improved. Of note the patient did mention to nursing that she had UTI symptoms, was found to have UTI. She recently finished Macrobid by her PCP. I placed her on 5 days of Bactrim with urine culture pending. Discussed at length that she needs to follow up with primary care provider, see her PCP for further evaluation, monitor for signs and symptoms of worsening infection such as fever, flank pain etc.. Patient has no questions or concerns and states understanding return precautions as well as follow-up care. <Emily Flores, DO - Last Filed: 11/13/19 07:14> Lab Data Labs: Lab Results 11/12/19 Range/Units 15:45 Urine Color Yellow Urine Appearance Slightly cloudy Urine pH 5.5 (4.5-8.0) Ur Specific [place] 1.020 (1.000-1.035) Urine Protein Negative (Negative) Urine Glucose (UA) Negative (Negative) g/dL Urine Ketones Negative (NEGATIVE) Urine Occult Blood Trace-lysed (Negative) Urine Nitrate Positive (Negative) Urine Bilirubin Negative (NEGATIVE) Urine Urobilinogen 0.2 (0.2) E.U./dL Ur Leukocyte Esterase 2+ H (NEGATIVE) Urine RBC 5-10/hpf H (0-5/HPF) Urine WBC 30-100/hpf H (0-5/HPF) Ur Squamous Epith Cells 1-5 /hpf (0-5/HPF) Urine Bacteria Many (>30) H (None) Ur Culture Indicated? Specimen cultured Discharge Plan Departure Patient Disposition: Home Clinical Impression: Acute UTI Acute shoulder pain Qualifiers: Laterality: left Qualified Code(s): M25.512 - Pain in left shoulder Discharge Date/Time: 11/12/19 16:45 Instructions: DI for Urinary Tract Infection (UTI), How To Perform RICE (Rest, Ice, Compress, Elevate), DI for Shoulder Pain Activity Restrictions/Additional Instructions: As I discussed, your x-ray shows no acute fracture. This does not rule out a soft tissue injury such as a ligament or tendon injury. It is important that you follow up with primary care provider, especially if worsening or no improvement. There can be fractures that did not show up on initial x-ray. For your shoulder I've sent in a prescription for a muscle relaxer. This can be sedating. Do not combine it with anything sedating such as alcohol. I also sent in a prescription of Bactrim for the urinary tract infection. Please monitor for fever, flank pain, inability keep down fluids etcetera Please come back to the emergency department for any acute concerns Please follow-up with primary care provider in the next few days I've given the contact information to the [facility] mineral resources inspector as they can help you identify primary care provider Prescriptions: New cyclobenzaprine 10 mg tablet 10 mg PO TID PRN (Reason: muscle spasm) Qty: 20 RF: 0 sulfamethoxazole-trimethoprim 800-160 mg tablet 1 tab PO BID Qty: 10 RF: 0 No Action mirtazapine 45 mg tablet 45 mg PO DAILY Qty: 90 RF: 0 lisinopril 20 MG tablet 20 mg PO DAILY Qty: 0 RF: 0 sertraline 100 MG tablet 200 mg PO QAM Qty: 0 RF: 0 cholecalciferol (vitamin D3) [Vitamin D3] 1,000 UNIT tablet 5,000 iu PO DAILY Qty: 0 RF: 0 ascorbic acid (vitamin C) 500 MG tablet 1,000 mg PO BID Qty: 0 RF: 0 calcium carbonate 500 MG tablet 1,000 mg PO DAILY Qty: 0 RF: 0 fremanezumab-vfrm [Ajovy] 225 mg/1.5 mL syringe 675 mg SUBCUT [id number] Qty: 4.5 RF: 3 lamotrigine 100 mg tablet 100 mg PO DAILY Qty: 90 RF: 1 atorvastatin 40 mg tablet 40 mg PO BEDTIME Qty: 90 RF: 3 gabapentin 300 mg capsule 900 mg PO BEDTIME Qty: 270 RF: 2 naratriptan 2.5 mg tablet See Rx Instructions PO .COMPLEX Qty: 9 RF: 4 acyclovir 800 mg tablet 800 mg PO BID PRN (Reason: outbreaks) RF: 0 metoprolol succinate 50 mg tablet extended release 24 hr 50 mg PO BEDTIME RF: 0 sulfamethoxazole-trimethoprim 800-160 mg tablet 1 tab PO [id number] RF: 0 topiramate 50 mg tablet 50 mg PO BID RF: 0 prazosin 1 mg capsule 1 mg PO DAILY RF: 0 Referrals: [facility] [Outside]
== END 2019-11-12 16:45 | disposition home or self-care (01) ==
PROVIDERS: Emergency Provider Nurse Practitioner Family
DX: M25.512 Pain in left shoulder (principal); N39.0 Urinary tract infection, site not specified
CPT/HCPCS: 73030; 81003; 81015; 87077; 87086; 87186; 99283